=== PATIENT | male | born 1945 | race Caucasian/White ===

== ENCOUNTER → 2020-02-10 13:57 | Outpatient (BNVA) | payer OTHER, SELFPAY | PROVIDERS: Family Provider Internal Medicine; PCP Internal Medicine; Visit Provider Nurse Practitioner | DX: M25.561 Pain in right knee (principal) | CPT/HCPCS: 73562 ==

== ENCOUNTER 2020-04-09 06:44 | Outpatient (CLI) | payer OTHER, SELFPAY ==
--- NOTE | 2020-04-09 07:15 | MR_ITS ---
WS: [id number] MRI LUMBAR SPINE WITH CONTRAST TECHNIQUE: Sagittal T1, T2 and STIR imaging. Axial T1 and T2 imaging. Post gadolinium imaging was obt ained. CLINICAL INFORMATION: LOW BACK PAIN COMPARISON: MRI 1 FINDINGS: Mild lumbar curve. No acute compression. Prior postoperative changes L3-L4 and L4-5 decompressive laminectomies. Slight retrolisthesis L2 on L3 and L3 on L4. L1-L2: Mild disc bulging with mild central canal stenosis. Moderate facet arthropathy. Foramen are pa tent. L2-L3: Retrolisthesis. Mild disc bulging with moderate central canal stenosis. Moderate facet arthrop athy. Foramen are patent. L3-L4: Slight retrolisthesis. Decompressive laminectomies. Narrowing of the subarticular recess bilat erally with small central protrusion. Moderate bilateral foraminal narrowing impinges the exiting L3 nerve roots bilaterally. Moderate facet arthropathy. L4-L5: Decompressive laminectomy. Moderate facet arthropathy. Mild right and no significant left fora fernie narrowing. Narrowing of the right dorsal thecal sac with mild residual central canal stenosis.. L5-S1: Mild disc bulging and osteophytic ridging. Spinal canal is patent. Moderate facet arthropathy. Mild left and no significant right foraminal narrowing. Prior postoperative changes in the cervical spine. MR/MR lumbar spine wo/w con [id number] IMPRESSION: 1. Mild lumbar curve. No acute compression. Prior decompressive laminectomies L3-L4 and L4-L5. 2. Slight retrolisthesis L2 on L3 and L3 on L4. 3. Mild central canal stenosis L1-2 and moderate central canal stenosis L2-3. This is progressed since 2014 4. Decompressive laminectomies L3-L4 and L4-L5 with mild residual central de l stenosis L4-5. 5. Moderate bilateral foraminal narrowing worse at L3-4 with impingement on th e exiting L3 nerve roots bilaterally.
== END 2020-04-09 06:45 | disposition home or self-care (01) ==
LOC: RADSHAW 06:47
PROVIDERS: PCP Emergency Medicine Emergency Medical Services; Visit Provider Family Medicine
DX: M54.5 Low back pain (principal); M96.1 Postlaminectomy syndrome, not elsewhere classified; M48.061 Spinal stenosis, lumbar region without neurogenic claudication
CPT/HCPCS: 72158; A9579

== ENCOUNTER → 2020-04-17 14:40 | Outpatient (BNVA) | payer OTHER, SELFPAY | PROVIDERS: PCP Emergency Medicine Emergency Medical Services; Visit Provider Psychiatry & Neurology Neurology | DX: M54.5 Low back pain (principal); Z87.891 Personal history of nicotine dependence | CPT/HCPCS: 99203 ==

== ENCOUNTER → 2020-06-04 13:55 | Outpatient (BNVA) | payer OTHER, SELFPAY | PROVIDERS: PCP Emergency Medicine Emergency Medical Services; Visit Provider Surgery | DX: Z11.59 Encounter for screening for other viral diseases (principal); R22.32 Localized swelling, mass and lump, left upper limb | CPT/HCPCS: 87635 ==

== ENCOUNTER 2020-06-08 08:04 | Day surgery (SDC) | payer OTHER, SELFPAY ==
[2020-06-05 10:51] VITALS: BMI 34.3
--- NOTE | 2020-06-05 12:28 | ANES.PREANE2 ---
Pre-Anesthetic Assessment Pre-Anesthetic Assessment: Height/Weight: Height 1.73 m Weight 102.512 kg Preop Diagnosis: cyst left hand, screening Proposed Procedure: Operation Date: 06/08/20 09:45 Proposed Procedures p Colonoscopy with poss biopsy poss polypectomy 22790 10892 R22.9 Z12.11(Not Applicable) - Xavier Jose MD s excision of subcutaneous mass left hand(Left) - Xavier Jose MD Was Beta Rylee taken within 24 hours: Yes Last intake: Instructed to take Day of Surgery Social: Social History: No alcohol and No tobacco Exam: Pre-Anes Outpt Exam: alert, oriented x 3, clear to auscultation bilaterally and regular rate & rhythm Airway: Submandibular: WNL Cervical ROM: WNL MP: 2 History/ROS: No significant complaints Pulmonary: Pulmonary: FITZGERALD and None reported CV/HEM: CV/HEM: HTN : : Chronic renal Insufficiency Hepatic: Hepatic: None reported GI: GI: None reported Metabolic: Metabolic: Hyperlipidemia and Morbid obesity Musc/skel: Musc/skel: None reported Neuropsych: Neuropsych: None reported Anesthetic Plan: ASA status: 3 Anesthesia: MAC PFSH Anesthesia PFSH: Medical History Anxiety Atherosclerotic heart disease of [place] coronary artery without angina pectoris CAD (coronary artery disease) COPD (chronic obstructive pulmonary disease) Depression Hyperlipidemia Hypertension Ischemic cardiomyopathy Lumbar radiculopathy Osteoarthritis Peripheral neuropathy Prostatitis PTSD (post-traumatic stress disorder) Spinal stenosis Surgical History History of fusion of cervical spine Hx of arthroscopic knee surgery Hx of circumcision Status post colonoscopy Family History Other CAD (coronary artery disease) Cancer Diabetes Hypertension Stroke Social History Smoking and tobacco status: former smoker Alcohol intake: never Lives independently: Yes Household members: spouse Marital status: Current occupational status: disabled History of recent travel: No Data Anesthesia Cardiac Studies: No Data to Display
[2020-06-08 08:19] VITALS: BP 132/80; PULSE 68; RESP 18; TEMP 36.3; O2SAT 94
[2020-06-08] MEDS: sodium chloride 0.9% 1,000 ML 30 ML IV (08:33)
--- NOTE | 2020-06-08 08:40 | W.PM.OPSUD ---
Surgery/Procedure H&P Update DATE OF PROCEDURE: June 08, 2020 DATE H&P PERFORMED: 05/22/20 H&P UPDATE INFORMATION: I have reviewed H&P completed within last 30 days, I have examined patient prior to procedure and No changes to prior documentation PREOP DIAGNOSIS: cyst left hand, screening PLANNED PROCEDURE: Operation Date: 06/08/20 09:45 Proposed Procedures p Colonoscopy with poss biopsy poss polypectomy 35558 44398 R22.9 Z12.11(Not Applicable) - Xavier Jose MD s excision of subcutaneous mass left hand(Left) - Xavier Jose MD
--- NOTE | 2020-06-08 09:24 | P.ANESUD_ITS ---
Pre-Anesthetic Update Pre-Anesthetic Assessment: Date of Surgery/Procedure: 06/08/20 Preop Michela gnosis: cyst left hand, screening Proposed Procedure: Operation Date: 06/08/20 09:45 Proposed Procedures p Colonoscopy with poss biopsy poss polypectomy 49963 72926 R22.9 Z12.11(Not Applicable) - Xavier Jose MD s excision of subcutaneous mass left hand(Left) - Xavier Jose MD Any changes to Pre-Anesthetic Assessment?: No Last Intake: Intake Last Liquid Date 06/07/20 Last Liquid Time 17:00 Last Solid Date 06/06/20 Last Solid Time 18:00 Vitals: Temperature 97.4 F L 06/08/20 08:19 Temperature Source Temporal Artery S can 06/08/20 08:19 Pulse Rate 68 06/08/20 08:19 Pulse Rhythm 06/08/20 08:19 Pulse Strength 3+ Normal 06/08/20 08:19 Respiratory Rate 18 06/08/20 08:19 Blood Pressure 132/80 06/08/20 08:19 Blood Pressure Elizabeth n 97 06/08/20 08:19 Pulse Oximetry 94 06/08/20 08:19 Oxygen Delivery Me thod 06/08/20 08:19 Exam: Pre-Anes Outpt Exam: alert, oriented x 3, clear to auscultation bilaterally and regular rate & rhythm Other Pertinent Information: Other Pertinent Information: took metoprolol this morning Cardiac Studies: No Data to Display
[2020-06-08] MEDS: lidocaine 1% INJ 20 mL IM (09:55)
[2020-06-08 10:18] VITALS: BP 101/70; PULSE 61; RESP 18; TEMP 36.3; O2SAT 92
[2020-06-08 10:41] VITALS: BP 108/75; PULSE 57; RESP 18; O2SAT 93
--- NOTE | 2020-06-08 11:00 | ANE.PACU2 ---
Inpatient post-anesthesia follow up: Airway intact: Yes Vital signs: Temperature 97.3 F Pulse Rate 57 Respiratory Rate 18 Blood Pressure 108/75 Pulse Oximetry 93 Oxygen Delivery Me thod Room Air Oxygen Flow Rate Fraction of Inspir ed Oxygen Hydration adequate: Yes Nausea and vomiting: No Pain level: 2 Mental status: Baseline
--- NOTE | 2020-06-08 11:24 | PM.OP ---
Operative Report Date of procedure: June 08, 2020 Pre-op Diagnosis: 2 x 2 centimeter cyst dorsal aspect of left hand Pre-op Diagnosis: Screening colonoscopy Post-op Diagnosis: Normal colonoscopy except scattered diverticuli sigmoid colon 2 x 2 centimeter cyst dorsal aspect of left hand Procedure Done: Excision of cyst dorsal aspect of left hand Colonoscopy past splenic flexure without biopsy Repeat colonoscopy in 10 years Pathology: Cyst left hand Surgeon: Xavier Jose Anesthesia: MAC Condition: stable Disposition: PACU Procedure: The patient was taken to the operating room and placed in left lateral position under MAC. The left forearm and hand was prepped and draped in a sterile manner. 60s of 1% lidocaine with 0.5% Marcaine was infiltrated around the palpable cyst on the dorsal aspect of the left hand between the second and third fingers. A 3 cm incision was made using 15 blade and the cyst was dissected free from the surrounding subcutaneous tissue and underlying fascia without any difficulty and sent to pathology. The wound was irrigated saline and subcutaneous tissue was approximated using interrupted 3-0 Vicryl suture and skin was closed using running subcuticular 4-0 Monocryl suture and surgical glue. Pressure dressings were applied DIAZ: Normal The colonoscope was introduced and advanced up to cecum with ileocecal valve and appendicular orifice was visualized. The colon prep was fair. Cecum: Normal Ascending colon: Normal Transverse colon: Normal Descending colon: Normal Sigmoid colon: Scattered diverticuli Rectum: Normal The colonoscope was withdrawn.
== END 2020-06-08 11:00 | disposition home or self-care (01) ==
PROVIDERS: PCP Emergency Medicine Emergency Medical Services; Visit Provider Surgery
PROC: 0DJD8ZZ Inspection of Lower Intestinal Tract, Via Natural or Artificial Opening Endoscopic (ICD-10-PCS; CPT 45378; principal; 2020-06-08 09:45)
PROC: (CPT 11422; 2020-06-08 09:45)
DX: Z12.11 Encounter for screening for malignant neoplasm of colon (principal); L72.0 Epidermal cyst; K57.30 Diverticulosis of large intestine without perforation or abscess without bleeding; I10 Essential (primary) hypertension; E78.5 Hyperlipidemia, unspecified; E66.01 Morbid (severe) obesity due to excess calories; Z68.34 Body mass index [BMI] 34.0-34.9, adult; F41.9 Anxiety disorder, unspecified; I25.10 Atherosclerotic heart disease of native coronary artery without angina pectoris; M19.90 Unspecified osteoarthritis, unspecified site; Z87.891 Personal history of nicotine dependence; Z79.82 Long term (current) use of aspirin
CPT/HCPCS: 11422; 12041; 45378; 12345; 88304; J2704; J3490; J7030

== ENCOUNTER 2020-10-08 13:49 | Outpatient (CLI) | payer OTHER, MEDICARE, SELFPAY ==
--- NOTE | 2020-10-08 14:11 | XR_ITS ---
WS: [id number] Chest 2 views, 10/08/2020 Clinical Data: shortness of breath Comparison: None. Findings: No nodules, masses or effusions are seen. The heart is normal. The pulmonary vascularity is not increased. No pneumonia or pneumothorax is seen. There are patchy peripheral opacities in the ri ght lung which could represent minimal pneumonia or chronic interstitial change. Recommend follow-up chest x-ray in 5-7 days. The aortic arch and descending aorta show tortuosity. The patient has had an anterior cervical disc fusion. XR/XR chest 2V* [id number] Impression: 1. Patchy peripheral opacities in the right lung which could represent chronic interstitial change or an acute pneumonia and recommend chest x-ray in 5-7 days . 2. Atherosclerosis.
== END 2020-10-08 13:50 | disposition home or self-care (01) ==
PROVIDERS: PCP Family Medicine; Visit Provider Internal Medicine Critical Care Medicine
DX: R06.02 Shortness of breath (principal); I70.90 Unspecified atherosclerosis
CPT/HCPCS: 71046

== ENCOUNTER → 2020-10-23 10:08 | Outpatient (BNVA) | payer OTHER, MEDICARE, SELFPAY | PROVIDERS: PCP Family Medicine; Visit Provider Internal Medicine Critical Care Medicine | DX: J43.9 Emphysema, unspecified (principal) | CPT/HCPCS: 87635 ==

== ENCOUNTER 2020-10-28 09:07 | Outpatient (CLI) | payer OTHER, SELFPAY ==
--- NOTE | 2020-10-28 11:15 | PFTS_ITS ---
Date of Study:10/28/20 Date of Dictation: 10/30/2020 MECHANICS: Forced vital capacity (FVC) is normal. Forced expiratory volume in one second (FEV1) is normal FEV1/FVC is normal Postbronchodilator study not performed. FLOW VOLUME LOOP: normal LUNG VOLUMES: Total lung capacity (TLC) is normal. Residual volume (RV) is normal. DIFFUSING CAPACITY FOR CARBON MONOXIDE: jami . INTERPRETATION: The pulmonary function tests are normal. MTDD
== END 2020-10-28 09:08 | disposition home or self-care (01) ==
PROVIDERS: PCP Family Medicine; Visit Provider Internal Medicine Critical Care Medicine
DX: J43.9 Emphysema, unspecified (principal)
CPT/HCPCS: 94010; 94726; 94729

== ENCOUNTER 2020-11-30 06:00 | Outpatient (RCR) | payer OTHER, SELFPAY | END 2020-12-25 23:59 | disposition home or self-care (01) | LOC: SPT 06:00 | PROVIDERS: PCP Family Medicine; Referring Provider Family Medicine; Visit Provider Family Medicine | DX: M54.5 Low back pain (principal) | CPT/HCPCS: 97110; 97161 ==

== ENCOUNTER 2020-12-26 06:00 | Outpatient (RCR) | payer OTHER, SELFPAY | END 2021-01-25 23:59 | disposition home or self-care (01) | LOC: SPT 06:00 | PROVIDERS: PCP Family Medicine; Referring Provider Family Medicine; Visit Provider Family Medicine | DX: M54.5 Low back pain (principal) | CPT/HCPCS: 97110; 97113 ==

== ENCOUNTER 2021-01-18 14:42 | Outpatient (CLI) | payer OTHER, SELFPAY ==
--- NOTE | 2021-01-18 15:00 | USCV_ITS ---
Krishna Hess Age: 75 Gender: M : 1945 Exam Date: 01/18/2021 15:01 Ordering Phys: Alberta Blackwell MD ([email or web address]) Technologist: Milvia Amor [place]am Location[place] [facility] [place] Indication: NICM, AND SOB BP: / HR: 84 Rhythm: Sinus Technical Quality: Adequate MEASUREMENTS (Male / Female) Normal Values 2D ECHO LV Diastolic Diameter PLAX 3.8 cm 4.2 - 5.9 / 3.9 - 5.3 cm LV Systolic Diameter PLAX 3.0 cm LV Chamber Size 3.3 cm IVS Diastolic Thickness 1.7 cm 0.6 - 1.0 / 0.6 - 0.9 cm IVS Systolic Thickness 1.6 cm LVPW Diastolic Thickness 1.3 cm 0.6 - 1.0 / 0.6 - 0.9 cm LVPW Systolic Thickness 1.4 cm RV Chamber Size 3.5 cm LVOT Diameter 2.1 cm LV Ejection Fraction 2D Teich 46.3 % LV Ejection Fraction MOD 2C 51.1 % LV Ejection Fraction 2C AL 56.4 % LA Diameter 5.1 cm LA Width 2.7 cm LA Height 3.9 cm RA Width 2.9 cm RA Height 4.1 cm Aorta at Sinotubular Diameter 2.4 cm M-MODE LV Diastolic Diameter MM 5.7 cm 4.2 - 5.9 / 3.9 - 5.3 cm LV Systolic Diameter MM 2.9 cm LV Ejection Fraction MM Teich 79.4 % IVS Diastolic Thickness MM 1.1 cm 0.6 - 1.0 / 0.6 - 0.9 cm IVS Systolic Thickness MM 1.4 cm LVPW Diastolic Thickness MM 1.3 cm 0.6 - 1.0 / 0.6 - 0.9 cm LVPW Systolic Thickness MM 1.6 cm RV Diastolic Diameter MM 1.3 cm Aortic Annulus Diameter 3.2 cm LA Ao Ratio MM 1.6 MV E Point Septal Separation 0.5 cm DOPPLER AV Peak Velocity 156.0 cm/s LVOT Peak Velocity 122.0 cm/s AV Area Cont Eq vti 3.0 cm squared AV Area Cont Eq pk 2.6 cm squared MV Area PHT 4.0 cm squared Mitral E to A Ratio 1.0 MV E' Velocity 37.0 cm/s Mitral E to MV E' Ratio 9.0 Mitral E to LV E' Lateral Ratio 7.9 Mitral E to LV E' Septal Ratio 10.5 TR Peak Velocity 132.3 cm/s TR Peak Gradient 7.0 mmHg TR Mean Velocity 90.3 cm/s TR Mean Gradient 3.5 mmHg TR Velocity Time Integral 36.5 cm TV Peak E Velocity 71.0 cm/s Right Atrial Pressure 3.0 mmHg Pulmonary Artery Systolic Pressu 10.0 mmHg PV Peak Velocity 98.0 cm/s RV Acceleration Time 0.1 s RV Ejection Time 0.3 s RV AcT/ET 0.4 FINDINGS Left Ventricle Normal left ventricular size and systolic function, EF 62 %. No regional wall motion abnormalities. Right Ventricle The right ventricle is normal in size and function. Right Atrium The right atrium is normal in size. Left Atrium The left atrium is normal in size. Mitral Valve No gross abnormalities noted Aortic Valve Thickened aortic valve. Tricuspid Valve No gross abnormalities noted Pulmonic Valve Pulmonic valve not well visualized. Pericardium Normal pericardium without effusion. Aorta Normal ascending aorta dimension. CONCLUSIONS Normal left ventricular size and systolic function, EF 62 %. No wall motion normalities noted. Minimally thickened aortic valve No significant stenotic or regurgitant lesions. There is no pericardial effusion. There are no intracardiac masses. Comparison with the previous study is difficult because of the difference in the technical quality. Dr Alberta Blackwell MD [facility] (Electronically Signed) Final Date: 25 Jan 2021 08:59 S
== END 2021-01-18 14:43 | disposition home or self-care (01) ==
LOC: US 14:44
PROVIDERS: PCP Family Medicine; Visit Provider Internal Medicine Cardiovascular Disease
DX: R07.89 Other chest pain (principal); I25.5 Ischemic cardiomyopathy
CPT/HCPCS: 93306

== ENCOUNTER 2021-01-22 07:45 | Outpatient (CLI) | payer OTHER, SELFPAY ==
--- NOTE | 2021-01-22 08:00 | CT_ITS ---
WS: [id number] CT CHEST TECHNIQUE: Noncontrast CT of the chest with coronal and sagittal reformatted images. CLINICAL INFORMATION: Shortness of breath COMPARISON: None. DLP: 1041.[address] scans at [facility] use at least one of these dose optimization techniques: automat ed exposure control; mA and/or kV adjustment per patient size (includes targeted exams where dose is matched to clinical indication); or iterative reconstruction. FINDINGS: Centrilobular and paraseptal moderate chronic emphysematous changes. Bronchiectasis in the right midd le lobe and right lower lobe. No acute pulmonary infiltrates. No focal pneumonia or pleural fluid. No ncalcified 4 mm nodule left upper lobe. Calcified granulomas right hilum. Aortic calcification. Coronary calcification. No mediastinal or hil ar lymphadenopathy. No axillary lymphadenopathy. Normal GE junction. Adrenal glands are normal. No ax illary lymphadenopathy. Hypertrophic changes thoracic spine. CT/CT chest wo con [id number] IMPRESSION: 1. Centrilobular and paraseptal moderate chronic emphysematous changes. Bronch iectasis in the right middle lobe and right lower lobe. 2. Noncalcified 4 mm nodule left upper lobe. 3. No acute pulmonary infiltrates. No focal pneumonia or pleural fluid. 4. No mediastinal or hilar lymphadenopathy. 5. Vascular calcification including coronary. 6. No other significant findings.
== END 2021-01-22 07:46 | disposition home or self-care (01) ==
PROVIDERS: PCP Family Medicine; Visit Provider Internal Medicine Critical Care Medicine
DX: R06.02 Shortness of breath (principal); I25.10 Atherosclerotic heart disease of native coronary artery without angina pectoris; R91.1 Solitary pulmonary nodule; J43.2 Centrilobular emphysema
CPT/HCPCS: 71250

== ENCOUNTER 2021-01-26 06:00 | Outpatient (RCR) | payer OTHER, SELFPAY | END 2021-02-24 23:59 | disposition home or self-care (01) | LOC: SPT 06:00 | PROVIDERS: PCP Family Medicine; Referring Provider Family Medicine; Visit Provider Family Medicine | DX: M54.5 Low back pain (principal) | CPT/HCPCS: 97110; 97113 ==

== ENCOUNTER 2021-02-25 06:00 | Outpatient (RCR) | payer OTHER, SELFPAY | END 2021-03-27 23:59 | disposition home or self-care (01) | LOC: SPT 06:00 | PROVIDERS: PCP Family Medicine; Referring Provider Family Medicine; Visit Provider Family Medicine | DX: M54.5 Low back pain (principal) | CPT/HCPCS: 97110 ==

== ENCOUNTER 2021-03-02 14:43 | Emergency (ER) | payer OTHER, SELFPAY ==
[2021-03-02 15:42] VITALS: BP 149/93; PULSE 77; RESP 18; TEMP 36.6; O2SAT 93; BMI 33.0
[2021-03-02 17:22] VITALS: BP 137/93; PULSE 78; RESP 21; TEMP 36.4; O2SAT 94
--- NOTE | 2021-03-02 17:22 | ED_ITS ---
HPI - Fall General: Chief Complaint: Fall Stated Complaint: BAck shasta, fall Time Seen by Provider: 03/02/21 17:20 History of Present Illness: HPI Narrative: 75-year-old male patient reports that he had been working on some fence and turned a misstep causing him to fall onto his left side. Since then patient has had some increased discomfort in the right posterior lower rib area. Patient reports occasional discomfort and pain with inspiration and movement. Patient denies any chest pain, difficulty breathing, or loss of consciousness. Patient is alert and oriented. Patient has a history of diabetes, depression, BPH, hypertension, and COPD. Review of Systems General: Reports: 10 or more systems reviewed and unremarkable except in HPI and below Musc: Reports: other (Right side pain and muscle spasm) PFSH ED PFSH: Medical History (Updated 03/02/21 @ 19:06 by SHARMILA Kinsey) Anxiety Atherosclerotic heart disease of [place] coronary artery without angina pectoris CAD (coronary artery disease) COPD (chronic obstructive pulmonary disease) Depression Hyperlipidemia Hypertension Ischemic cardiomyopathy Lumbar radiculopathy Osteoarthritis Peripheral neuropathy Prostatitis PTSD (post-traumatic stress disorder) Spinal stenosis Surgical History (Updated 01/07/21 @ 14:10 by Saba Conn LPN) H/O excision of mass (06/08/20) Left hand History of fusion of cervical spine Hx of arthroscopic knee surgery Hx of circumcision Status post colonoscopy (06/08/20) Family History Mother CAD (coronary artery disease) Cancer Diabetes Stroke Father Cancer Brother Cancer Chronic kidney disease (CKD) Diabetes Son Diabetes Family/Other Diabetes Other Hypertension Denies family history of Clotting disorder Dementia Suicide Anesthesia complication Bleeding disorder Lung disease Social History Smoking and tobacco status: former smoker Quit status (tobacco): has quit using tobacco Year quit tobacco: 1989 - . PPD x 40 Years Second hand smoke exposure: Yes Smoking risk assessment/counseling performed?: No Alcohol intake: never Counseling given: No Counseling given: No Lives independently: Yes Household members: spouse Marital status: service: Yes Current occupational status: disabled History of recent travel: No Current gender identity: Male Physical Exam Const: COMMON NORMALS: no acute distress and patient oriented x3 GENERAL APPEARANCE: cooperative HENMT: COMMON NORMALS: normocephalic and Normal external nose present HEAD & SCALP: normal to inspection and normocephalic NOSE: Normal external nose present MOUTH: Normal oral and palatal mucosa present THROAT: posterior oropharynx normal Eye: GENERAL EYE: appearance normal, both eyes and all related structures Neck/C-Spine: COMMON NORMALS: full ROM Chest: COMMONS NORMALS: normal inspection of the chest CHEST: Yes localized rib tenderness with anteroposterior compression (right posterior lower rib tenderness) Resp: COMMON NORMALS: normal respiratory effort EFFORT & INSPECTION: Yes able to speak in complete sentences Cardio: COMMON NORMALS: regular rate and regular rhythm RATE: regular rate RHYTHM: regular rhythm GI: COMMON NORMALS: non-tender Back/Pelvis: THORACIC SPINE/UPPER BACK: Yes paraspinal muscle tenderness Thoracic paraspinal muscle tenderness: right LUMBAR SPINE/LOWER BACK: Yes paraspinal muscle tenderness Lumbar paraspinal muscle tenderness: right Extremity: COMMON NORMALS: normal to inspection Neuro: COMMON NORMALS: patient oriented x3 and moves all extremities Psych: COMMON NORMALS: mental status grossly normal and cooperative Skin: COMMON NORMALS: no rashes or lesions noted GENERAL SKIN EXAM: no rashes or lesions noted Course Vital Signs: Vital signs: Vital Signs Temperature 97.5 F L 03/02/21 17:22 Pulse Rate 78 03/02/21 17:22 Respiratory Rate 21 H 03/02/21 17:22 Blood Pressure 137/93 03/02/21 17:22 Pulse Oximetry 94 03/02/21 17:22 MDM - Fall MDM Narrative: Medical decision making narrative: 75-year-old male patient comes in today for injury to the low back. Patient reports he had been working on some fence and turned to head up to the house and he tripped and fell landing on his left side. Since then he has been having some muscle spasms and pain to the right mid to lower back. On exam patient has no significant midline spinal tenderness, he does have some muscle tenderness in the right mid to lower paraspinous muscles. Vital signs are normal. Abdomen soft nontender. Skin is warm and dry. No flailing or crepitus is noted in the ribs. Differential diagnosis includes rib fracture, degenerative disc disease, muscle strain, facet arthropathy. X-ray of the ribs and the lumbar spine I did not see any obvious fractures, however we will await final report by radiology which will be called to patient if different or new abnormality is noted. Patient was given a dose of hydrocodone and acetaminophen, 15 mg of Toradol IM, and 60 mg orphenadrine. Patient did report some mild relief. Patient appears well without any signs of serious injury or illness. Discharge Plan Discharge Patient Disposition: Home Clinical Impression: Spasm of muscle of lower back Fall Qualifiers: Encounter type: initial encounter Qualified Code(s): W19.XXXA - Unspecified fall, initial encounter Condition: Stable Prescriptions: New hydrocodone-acetaminophen 5-325 mg tablet 1 tab PO Q6H PRN (Reason: pain (scale score 7-10)) Qty: 14 RF: 0 tizanidine 4 mg tablet 4 mg PO Q8H PRN (Reason: muscle spasticity) Qty: 14 RF: 0 No Action prazosin 1 mg capsule 1 mg PO BEDTIME RF: 0 bupropion HCl 150 mg tablet extended release 24 hr 150 mg PO DAILY RF: 0 quetiapine 200 mg tablet 100 mg PO DAILY RF: 0 finasteride 5 mg tablet 5 mg PO DAILY RF: 0 metoprolol tartrate 50 mg tablet 25 mg PO BID RF: 0 atorvastatin 20 mg tablet 10 mg PO DAILY RF: 0 pantoprazole 40 mg tablet,delayed release (DR/EC) 40 mg PO DAILY RF: 0 aspirin [Adult Low Dose Aspirin] 81 mg tablet,delayed release (DR/EC) 81 mg PO DAILY RF: 0 multivitamin Tablet 1 tab PO DAILY RF: 0 losartan 25 mg tablet 25 mg PO DAILY RF: 0 albuterol sulfate [ProAir HFA] 90 mcg/actuation HFA aerosol inhaler 2 puff INHALATION Q6H PRN (Reason: Shortness Of Breath Or Wheezing) RF: 0 fluticasone propionate [Flonase Allergy Relief] 50 mcg/actuation spray,suspension 1 spray intranasal BID 30 Days Qty: 16 RF: 3 Stiolto Respimat 2.5-2.5 mcg/actuation mist 2 puff inhalation Q24H 30 Days Qty: 4 RF: 3 Discharge Orders: Discharge ED (Routine); Ordered 03/02/21 Ordered By: Tacos Covington Referrals: Gypsy Salcedo MD [Primary Care Provider] - Discharge Diet: Usual diet Discharge Activity: Increase activity as tolerated Patient Instructions: Muscle Spasm (ED), Opioid Safety Activity Restrictions/Additional Instructions: Activity as tolerated. Gentle stretching and range of motion exercises. Drink plenty of water with medication. Use acetaminophen or ibuprofen to control pain. Use hydrocodone as needed for breakthrough pain. Use tizanidine routinely for control of muscle spasms. Follow-up with primary care in 2 to 3 days for recheck. Return to the ER for new concerns or worsening symptoms. Coding Level of Care Code ED Piped Buttonhole Machine Operator for Rhina Fwd Exam Comprehensive
--- NOTE | 2021-03-02 17:33 | XRR_ITS ---
PROCEDURE INFORMATION: Exam: XR Lumbosacral Spine Exam date and time: 03/02/2021 5:33 PM Age: 75 years old Clinical indication: Injury or trauma; Fall; Blunt trauma (contusions or hematomas) TECHNIQUE: Imaging protocol: XR of the lumbosacral spine. Views: 2 or 3 views. COMPARISON: MR lumbar spine wo/w con [id number] 04/09/2020 7:27 AM FINDINGS: Bones/joints: Trace S shaped curvature of the spine noted. The normal lumbar lordosis is mildly accentuated, with grade 1 retrolisthesis of L3. Unchanged mild anterior wedge compression fracture deformity of L1. Other vertebral body heights are well maintained. No acute fracture seen. There is multilevel degenerative changes, manifested by intervertebral disc space narrowing, endplate osteophytes and facet joint arthrosis. Soft tissues: Unremarkable. XR/XR lumbar spine 2-3V* [id number] IMPRESSION: 1. Degenerative changes of the lumbar spine. 2. No acute injury identified.
--- NOTE | 2021-03-02 17:33 | XRR_ITS ---
PROCEDURE INFORMATION: Exam: XR Right Ribs with PA Chest Exam date and time: 03/02/2021 5:33 PM Age: 75 years old Clinical indication: Injury or trauma; Fall; Rib area; Blunt trauma (contusions or hematomas); Additional info: Fall injury TECHNIQUE: Imaging protocol: XR Right ribs with PA chest. Views: 3 views COMPARISON: CT chest con [id number] 01/22/2021 8:02 AM FINDINGS: Lungs: No consolidation. Linear scarring noted bilaterally, right greater than left. Pleural spaces: Unremarkable. No pleural effusion. No pneumothorax. Heart/Mediastinum: Stable cardiomediastinal silhouette. Bones/joints: No displaced rib fracture identified. Cervical spine fusion hardware noted. Degenerative changes of the spine seen. XR/XR ribs RT mn 3V w CXR1V [id number] IMPRESSION: No displaced rib fracture seen.
[2021-03-02] MEDS: HYDROcodone-acetaminophen 10-325 mg Tablet 1 TAB PO (17:36)
[2021-03-02] MEDS: orphenadrine 30 mg/mL Inj 2 mL 60 MG IM (19:41)
[2021-03-02 19:42] VITALS: BP 142/85; O2SAT 94
[2021-03-02] MEDS: ketorolac 30 mg/mL INJ 15 MG IM (19:42)
== END 2021-03-03 14:25 | disposition home or self-care (01) ==
PROVIDERS: Emergency Provider Nurse Practitioner Family; PCP Family Medicine
DX: M62.830 Muscle spasm of back (principal); W19.XXXA Unspecified fall, initial encounter; Z79.82 Long term (current) use of aspirin; I25.10 Atherosclerotic heart disease of native coronary artery without angina pectoris; J44.9 Chronic obstructive pulmonary disease, unspecified; E78.5 Hyperlipidemia, unspecified; I10 Essential (primary) hypertension; Z87.891 Personal history of nicotine dependence
CPT/HCPCS: 71101; 72100; 96372; 99283; J1885; J2360

== ENCOUNTER 2021-04-28 06:00 | Outpatient (RCR) | payer OTHER, SELFPAY | END 2021-05-27 23:59 | disposition home or self-care (01) | LOC: SPT 06:00 | PROVIDERS: PCP Family Medicine; Referring Provider Family Medicine; Visit Provider Family Medicine | DX: R26.89 Other abnormalities of gait and mobility (principal) | CPT/HCPCS: 97110; 97112; 97161 ==

== ENCOUNTER 2021-05-28 06:00 | Outpatient (RCR) | payer OTHER, SELFPAY | END 2021-06-27 23:59 | disposition home or self-care (01) | LOC: SPT 06:00 | PROVIDERS: PCP Family Medicine; Referring Provider Family Medicine; Visit Provider Family Medicine | DX: R26.89 Other abnormalities of gait and mobility (principal) | CPT/HCPCS: 97110; 97112 ==

== ENCOUNTER 2021-10-08 13:46 | Outpatient (CLI) | payer OTHER, SELFPAY ==
--- NOTE | 2021-10-08 14:09 | CT_ITS ---
WS: [id number] CT ABDOMEN PELVIS TECHNIQUE: Contrast-enhanced CT of the abdomen and pelvis with coronal and sagittal reformatted image s. CLINICAL INFORMATION: LRQ PAIN COMPARISON: None. DLP: 1262.[address] scans at [facility] use at least one of these dose optimization techniques: automated e xposure control; mA and/or kV adjustment per patient size (includes targeted exams where dose is matc hed to clinical indication); or iterative reconstruction. FINDINGS: Mild RIGHT hydronephrosis. Mild inflammatory stranding about the RIGHT kidney. Mild RIGHT ureterectas is with a 3.3 x 4.5 mm obstructing RIGHT mid ureteral calculus. Normal LEFT renal parenchymal enhancement. Tiny LEFT renal parenchymal cyst. Normal LEFT ureter. No h ydronephrosis in the LEFT kidney. Mild diffuse fatty infiltration of the liver. Normal portal vein and splenic vein. Normal gallbladder . Spleen within normal limits.. Normal GE junction. Interstitial thickening with pulmonary fibrosis i n the lung bases. Associated bronchiectasis. Slight pleural thickening in the lung bases. Normal celiac and SMA. Normal caliber abdominal aorta. Aortic calcification. Prominent prostate measu ring 4.2 CM. Correlation PSA. Normal sigmoid colon. Sigmoid diverticulosis. No evidence of acute diverticulitis. Spondylitic changes lumbar spine. Laminectomy defects lower lumbar spine. No periaortic or pelvic lym phadenopathy. No inguinal lymphadenopathy. Tiny fat-containing LEFT inguinal hernia. CT/CT abdomen pelvis w con* [id number] IMPRESSION: 1. Obstructing 3.3 x 4.5 mm RIGHT midureteral calculus with mild RIGHT hydrone phrosis and ureterectasis. Mild inflammatory stranding about the RIGHT kidney. 2. No hydronephrosis in the LEFT kidney. 3. Mild diffuse fatty infiltration of the liver. 4. Spleen measures 12 cm upper pole within normal limits. 5. Sigmoid diverticulosis. No evidence of acute diverticulitis. 6. Enlarged prostate measuring 4.2 CM. Recommend correlation PSA. 7. Fibrosis with bronchiectasis in the lung bases. 8. Moderate to advanced spondylitic changes lumbar spine with laminectomy defe cts lower lumbar spine. Preliminary findings communicated to Gypsy Salcedo MD at 10/08/2021 4:26 PM.
[2021-10-08] MEDS: iohexol 300 mg/mL 50 mL Btl PO (15:52)
[2021-10-08] MEDS: iodixanol 320 mg/mL 100mL Btl IV (16:03)
[2021-10-08 16:27] LABS: Blood Urea Nitrogen 17 mg/dL (8-23)
== END 2021-10-08 13:47 | disposition home or self-care (01) ==
LOC: RAD 13:56
PROVIDERS: PCP Family Medicine; Visit Provider Family Medicine
DX: N20.1 Calculus of ureter (principal); N13.30 Unspecified hydronephrosis; N13.4 Hydroureter; K76.0 Fatty (change of) liver, not elsewhere classified; K57.30 Diverticulosis of large intestine without perforation or abscess without bleeding; N40.0 Benign prostatic hyperplasia without lower urinary tract symptoms; J84.10 Pulmonary fibrosis, unspecified; J47.9 Bronchiectasis, uncomplicated
CPT/HCPCS: 74177; 82565; 84520

== ENCOUNTER 2021-10-18 16:46 | Emergency (ER) | payer OTHER, MEDICARE, SELFPAY ==
[2021-10-18 16:54] VITALS: BP 134/91; PULSE 109; RESP 20; TEMP 36.8; O2SAT 92; BMI 30.1
--- NOTE | 2021-10-18 16:59 | XRR_ITS ---
PROCEDURE INFORMATION: Exam: XR Left Ankle Exam date and time: 10/18/2021 4:59 PM Age: 76 years old Clinical indication: Pain; Ankle; Left; Additional info: Injury TECHNIQUE: Imaging protocol: XR Left ankle. Views: 3 or more views. COMPARISON: No relevant prior studies available. FINDINGS: Bones/joints: There is an oblique comminuted fracture of the distal shaft of the fibula. A transverse avulsion fracture is seen in the inferior aspect of the medial malleolus. Soft tissues: Normal. Other findings: the age of this finding is indeterminate. XR/XR ankle LT min 3V* [id number] IMPRESSION: 1. Acute comminuted oblique fracture distal shaft of the fibula. 2. Transverse fracture of the medial malleolus of unclear known age.
--- NOTE | 2021-10-18 16:59 | ED_ITS ---
HPI - Extremity Problem General: Chief complaint: Extremity Injury, Lower Stated complaint: Wilmer gee injury Time Seen by Provider: 10/18/21 16:59 History of Present Illness: 76-year-old male patient comes in today with injury to the left ankle. Patient reports he was rolling out a bale of hay when he felt a pop and fell to the ground. Patient said he felt severe pain with nausea. Patient reports his pain is subsided but he is unable to bear weight to the extremity. Patient does have a history of neuropathy to lower extremities. Patient is alert and oriented. Patient has a history of COPD, spinal stenosis, CAD, hypertension, and depression. Review of Systems General: Reports: 10 or more systems reviewed and unremarkable except in HPI and below Musc: Reports: extremity pain (left ankle) PFS ED PFSH: Medical History Anxiety Atherosclerotic heart disease of [place] coronary artery without angina pectoris CAD (coronary artery disease) COPD (chronic obstructive pulmonary disease) Depression Hyperlipidemia Hypertension Ischemic cardiomyopathy Lumbar radiculopathy Osteoarthritis Peripheral neuropathy Prostatitis PTSD (post-traumatic stress disorder) Spinal stenosis Surgical History H/O excision of mass (06/08/20) Left hand History of fusion of cervical spine Hx of arthroscopic knee surgery Hx of circumcision Status post colonoscopy (06/08/20) Family History Mother CAD (coronary artery disease) Cancer Diabetes Stroke Father Cancer Brother Cancer Chronic kidney disease (CKD) Diabetes Son Diabetes Family/Other Diabetes Other Hypertension Denies family history of Clotting disorder Dementia Suicide Anesthesia complication Bleeding disorder Lung disease Social History Quit status (tobacco): has quit using tobacco Year quit tobacco: 1989 - . PPD x 40 Years Second hand smoke exposure: Yes Smoking risk assessment/counseling performed?: No Alcohol intake: never Counseling given: No Counseling given: No Lives independently: Yes Household members: spouse Marital status: service: Yes Current occupational status: disabled History of recent travel: No Current gender identity: Male Physical Exam Const: COMMON NORMALS: alert Neck/C-Spine: COMMON NORMALS: full ROM Resp: COMMON NORMALS: normal respiratory effort Cardio: COMMON NORMALS: regular rate and regular rhythm RATE: regular rate RHYTHM: regular rhythm Extremity: NARRATIVE EXTREMITY EXAM: Laxity is noted to the left ankle, lateral swelling is noted, positive pedal pulses, decreased sensation which patient reports is chronic due to neuropathy. Neuro: SENSORIUM/ORIENTATION: Yes alert Psych: COMMON NORMALS: cooperative Skin: COMMON NORMALS: no wounds Course Vital Signs: Vital signs: Vital Signs Temperature 98.3 F 10/18/21 16:54 Pulse Rate 100 10/18/21 17:07 Respiratory Rate 18 10/18/21 17:07 Blood Pressure 128/90 10/18/21 17:07 Pulse Oximetry 94 10/18/21 17:07 MDM - Extremity (Nontraumatic) Medical Decision Making 76-year-old male patient comes in today with injury to the left ankle. Patient report working out in the field and felt a pop and fell to the ground with injury to the ankle. Patient was able to bear weight to the ankle. On exam p atient has pulses to the ankle. Minimal swelling is noted. Patient does have chronic neuropathy to the foot so decreased sensation is noted. Significant laxity is noted to the ankle joint. Differential diagnosis includes but not limited to fracture, sprain, contusion. X-ray confirmed by carlitos possible trimalleolar fracture of the left ankle. Good alignment was noted to the ankle joint. Patient was placed in a posterior medial lateral splint and was maintained on crutches. Reviewed with patient and spouse that they will need to follow-up with orthopedics. manager film was consulted for follow-up appointment. Patient usually goes to [facility] for his care and states he will probably follow-up with them. Patient reported understanding of need for follow-up for further treatment and evaluation. Discharge Plan Discharge Patient Disposition: Home Clinical Impression: Ankle fracture, left Condition: Stable Prescriptions: No Action prazosin 1 mg capsule 1 mg PO BEDTIME 0RF quetiapine 200 mg tablet 100 mg PO DAILY 0RF finasteride 5 mg tablet 5 mg PO DAILY 0RF metoprolol tartrate 50 mg tablet 25 mg PO BID 0RF atorvastatin 20 mg tablet 10 mg PO DAILY 0RF pantoprazole 40 mg tablet,delayed release (DR/EC) 40 mg PO DAILY 0RF aspirin [Adult Low Dose Aspirin] 81 mg tablet,delayed release (DR/EC) 81 mg PO DAILY 0RF multivitamin Tablet 1 tab PO DAILY 0RF losartan 25 mg tablet 25 mg PO DAILY 0RF azelastine 137 mcg (0.1 %) aerosol,spray 1 spray intranasal BID 30 Days Qty: 30 3RF Rx Instructions: administer into each nostril. Please overnight fluticasone propionate [Flonase Allergy Relief] 50 mcg/actuation spray,suspension 1 spray intranasal BID Qty: 16 3RF Rx Instructions: administer into each nostril codeine-guaifenesin 10-200 mg/5 mL liquid 5 ml PO Q6H PRN (Reason: cough) 30 Days Qty: 473 2RF albuterol sulfate [ProAir HFA] 90 mcg/actuation HFA aerosol inhaler 2 puff INHALATION Q6H PRN (Reason: Shortness Of Breath Or Wheezing) 0RF Stiolto Respimat 2.5-2.5 mcg/actuation mist 2 puff inhalation Q24H 30 Days Qty: 4 3RF Discharge Orders: Discharge ED (Routine); Ordered 10/18/21 Ordered By: Tacos Covington Referrals: Gypsy Salcedo MD [Primary Care Provider] - Discharge Diet: Usual diet Discharge Activity: Limit activity as instructed Patient Instructions: Ankle Fracture (ED) Activity Restrictions/Additional Instructions: Avoid weightbearing to the ankle. Use crutches for protection of extremity. Use acetaminophen and ibuprofen as needed for pain. You can use your stronger pain medication as needed for severe pain. Use ice and elevation to help prevent swelling. Case management will contact you regarding follow-up appointment with director of orthopedics for further treatment. Return to ER for new concerns. Coding Level of Care Code ED Game Manager for Rhina Fwd Exam Detailed
[2021-10-18 17:07] VITALS: BP 128/90; PULSE 100; RESP 18; O2SAT 94
--- NOTE | 2021-10-19 09:01 | DCPLANNER ---
Addendum entered by Kell Rodriguez 10/21/21 19:40: Patient had a followup appointment for patient with Dr. Shultz at ortho - patient did attend appointment. Original Note: equipment manager had message to schedule a follow up appointment for patient with ortho. equipment manager called the ortho clinic, spoke with Yoselyn, gave clinic patients information. equipment manager was told that patients information would be printed and reviewed. Clinic will call patient with appointment information. Patient has [facility] insurance, egg caser emailed patients information to November, with [employer] [facility], so that the authorization process could be started.
== END 2021-10-18 18:22 | disposition home or self-care (01) ==
PROVIDERS: Emergency Provider Nurse Practitioner Family; PCP Family Medicine
DX: S82.432A Displaced oblique fracture of shaft of left fibula, initial encounter for closed fracture (principal); S82.52XA Displaced fracture of medial malleolus of left tibia, initial encounter for closed fracture; Z79.82 Long term (current) use of aspirin; I25.10 Atherosclerotic heart disease of native coronary artery without angina pectoris; J44.9 Chronic obstructive pulmonary disease, unspecified; E78.5 Hyperlipidemia, unspecified; I10 Essential (primary) hypertension; Z87.891 Personal history of nicotine dependence; X58.XXXA Exposure to other specified factors, initial encounter
CPT/HCPCS: 29515; 73610; 99282

== ENCOUNTER 2021-10-19 14:15 | Outpatient (CLI) | payer OTHER, MEDICARE, SELFPAY | END 2021-10-19 14:16 | disposition home or self-care (01) | LOC: SPT 14:15 | PROVIDERS: PCP Family Medicine; Visit Provider Orthopaedic Surgery | DX: Z46.89 Encounter for fitting and adjustment of other specified devices (principal); S82.852D Displaced trimalleolar fracture of left lower leg, subsequent encounter for closed fracture with routine healing; X58.XXXD Exposure to other specified factors, subsequent encounter | CPT/HCPCS: 87635; 97760; L4361 ==

== ENCOUNTER 2021-10-25 05:55 | Day surgery (SDC) | payer OTHER, MEDICARE, SELFPAY ==
[2021-10-22 13:43] VITALS: BMI 31.0
[2021-10-25] VITALS (7 sets, daily range): BP systolic 100–125; BP diastolic 59–79; PULSE 72–82; RESP 15–18; TEMP 36.2–37; O2SAT 91–97
--- NOTE | 2021-10-25 | XR_ITS ---
WS: [id number] C-ARM RADIOGRAPHS LEFT ANKLE; 3 IMAGES HISTORY: ORIF FRACTURE OF LT ANKLE COMPARISON: 10/18/2021 Short plate and screw stabilize a fracture in the distal fibula. Fracture in good position and alignm ent. Nonfixated avulsion fracture from the medial malleolus. XR/XR ankle LT 2V [id number] IMPRESSION: Plate and screw fixation distal fibular fracture in good alignment.
--- NOTE | 2021-10-25 | SCC_ITS ---
Procedure done: Open reduction and internal fixation left lateral malleolus 8 seconds of fluoroscopic guidance, for a cumulative dose of 0.14 mGy, was provided to Dr. Shultz by the radiology department. C-arm images of the LEFT ankle were saved for the patient's permanent record. [facility]ITALWal[facility]
[2021-10-25] MEDS: sodium chloride 0.9% 1,000 ML 30 ML IV (06:30)
--- NOTE | 2021-10-25 06:37 | ANES.PREANE2 ---
Pre-Anesthetic Assessment Height/Weight: Height 1.73 m Weight 92.533 kg Temp Pulse Resp BP Pulse Ox 97.3 F L 72 16 125/79 95 10/25/21 06:14 10/25/21 06:14 10/25/21 06:14 10/25/21 06:14 10/25/21 06:14 Preop Diagnosis: Trimalleolar left ankle fracture Operation Date: 10/25/21 07:00 Proposed Procedures p ORIF Ankle trimalleolar 85463/s82.852a(Left) - Krishan Shultz MD Familial anesthetic complications: None Was Beta Rylee taken within 24 hours: N/A Was Clonidine taken within 24 hours: N/A Last intake: Intake Last Liquid Date 10/24/21 Last Liquid Time 21:00 Last Solid Date 10/24/21 Last Solid Time 17:00 Social No alcohol and No tobacco Exam alert, oriented x 3, clear to auscultation bilaterally and regular rate & rhythm Airway Mallampati: Class IV Dentition: partials Pulmonary Chronic Obstructive Pulmonary Disease and Sleep Apnea CV/HEM Coronary Artery Disease and Hypertension (has taken same dose of losartan since before 12/14) Metabolic Hyperlipidemia Neuropsych Transient Ischemic Attack Anesthetic Plan ASA status: 3 Anesthesia: General and Regional (specify below) Risk of > 500 ml blood loss (7ml/kg in children): No Medications/Allergies Home Medications Medication Instructions Recorded Confirmed Last Taken Type aspirin 81 mg tablet,delayed 81 mg PO DAILY 11/12/19 10/22/21 03/02/21 History release (Adult Low Dose Aspirin) atorvastatin 20 mg tablet 10 mg PO DAILY tab 11/12/19 10/22/21 03/02/21 History finasteride 5 mg tablet 5 mg PO DAILY 11/12/19 10/22/21 03/02/21 History metoprolol tartrate 50 mg tablet 25 mg PO BID tab 11/12/19 10/22/21 03/02/21 History pantoprazole 40 mg tablet,delayed 40 mg PO DAILY 11/12/19 10/22/21 03/02/21 History release prazosin 1 mg capsule 1 mg PO BEDTIME cap 11/12/19 10/22/21 03/01/21 History quetiapine 200 mg tablet 100 mg PO DAILY tab 11/12/19 10/22/21 03/02/21 History albuterol sulfate 90 mcg/actuation 2 puff INHALATION Q6H PRN 05/22/20 10/22/21 06/07/20 History aerosol inhaler (ProAir HFA) tiotropium 2.5 mcg-olodaterol 2.5 2 puff INHALATION Q24H 30 Days #4 g 10/08/20 10/22/21 Unknown Rx mcg/actuation mist for inhalation (Stiolto Respimat) losartan 25 mg tablet 25 mg PO DAILY 12/09/20 10/22/21 03/02/21 History azelastine 137 mcg (0.1 %) nasal 1 spray INTRANASAL BID 30 Days #30 05/06/21 10/22/21 Unknown Rx spray aerosol ml codeine 10 mg-guaifenesin 200 mg/5 5 ml PO Q6H PRN 30 Days #473 ml 08/26/21 10/22/21 Unknown Rx mL oral liquid CAM WALKER #1 ea 10/19/21 10/19/21 Unknown Rx hydrocodone 7.5 mg-acetaminophen 1 tab PO Q4H PRN 7 Days #30 tab 10/19/21 10/22/21 Unknown Rx 325 mg tablet Allergies Allergy/AdvReac Type Severity Reaction Status Date / Time cyclobenzaprine Allergy Unknown unknown Verified 10/19/21 11:10 [From Flexeril] lisinopril Allergy Unknown unknown Verified 10/19/21 11:10 [facility] Anesthesia Medical History Anxiety Atherosclerotic heart disease of [place] coronary artery without angina pectoris CAD (coronary artery disease) COPD (chronic obstructive pulmonary disease) Depression Hyperlipidemia Hypertension Ischemic cardiomyopathy Lumbar radiculopathy Osteoarthritis Peripheral neuropathy Prostatitis PTSD (post-traumatic stress disorder) Spinal stenosis Surgical History H/O excision of mass (06/08/20) Left hand History of fusion of cervical spine Hx of arthroscopic knee surgery Hx of circumcision Status post colonoscopy (06/08/20) Family History Mother CAD (coronary artery disease) Cancer Diabetes Stroke Father Cancer Brother Cancer Chronic kidney disease (CKD) Diabetes Son Diabetes Family/Other Diabetes Other Hypertension Denies family history of Clotting disorder Dementia Suicide Anesthesia complication Bleeding disorder Lung disease Social History Smoking and tobacco status: former smoker Quit status (tobacco): has quit using tobacco Year quit tobacco: 1989 - . PPD x 40 Years Second hand smoke exposure: Yes Smoking risk assessment/counseling performed?: No Alcohol intake: never Counseling given: No Counseling given: No Lives independently: Yes Household members: spouse Marital status: service: Yes Current occupational status: disabled History of recent travel: No Current gender identity: Male Data Anesthesia Cardiac Studies: Echocardiogram Ultrasound 01/18/21
--- NOTE | 2021-10-25 06:54 | ANES.PROC ---
Anesthesia Procedures Procedure/Date: 10/25/21 Nerve Block ^: Nerve Block 1: Main Anesthesia: general anesthesia Time Out Performed: Yes Consent: requested by attending/covering physician, from patient, risks and benefits reviewed and patient agrees to proceed Nerve block location: popliteal (L) Anesthesia monitors applied: pulse oximetry, EKG, BP cuff and oxygen Nerve block position: supine Anesthetic Used: ropivicaine 0.5% (30 ml) and with decadron (4 mg) Ultrasound used to: recognize landmarks Nerve Stimulator Used?: No Interscalene/Femoral BLK: 4 stimuplex 21 g needle used for position and inplane approach, visualize local anesthetic spread and no vascular puncture identified Injection: neg aspiration of heme and paresthesia +/- Patient Tolerated Procedure: well and no complications Complications: none Additional Comments: During performance of block patient stated he has neuropathy in that foot and it always feels like he has pins and needles sensations in it
--- NOTE | 2021-10-25 07:06 | W.PM.OPSUD ---
Surgery/Procedure H&P Update DATE OF PROCEDURE: October 25, 2021 DATE H&P PERFORMED: 10/19/21 H&P UPDATE INFORMATION: I have reviewed H&P completed within last 30 days PREOP DIAGNOSIS: Trimalleolar left ankle fracture PLANNED PROCEDURE: Operation Date: 10/25/21 07:00 Proposed Procedures p ORIF Ankle trimalleolar 42958/s82.852a(Left) - Krishan Shultz MD
--- NOTE | 2021-10-25 08:00 | PM.OP ---
Operative Report Date of procedure: October 25, 2021 Pre-op diagnosis: Preop Diagnosis Trimalleolar left ankle fracture Post-op diagnosis: same Post-op diagnosis: Same Procedure done: Open reduction and internal fixation left lateral malleolus Implants: Sharri 6-hole semitubular plate Pathology: none sent Surgeon: Krishan Shultz Estimated blood loss (mL): 5 Tourniquet time (min): 26 Findings: The patient had a lateral malleolar fracture and a small and small extra-articular posterior malleolar fracture medial malleolar avulsion. He had a small area of a slightly dusky skin over his anterior foot presumably due to compression from the boot. The overlying skin was still intact and specific treatment of that pressure ulcer was not thought to be warranted Condition: stable Disposition: PACU Procedure: Mr. Hess was taken Mr. Hess was taken to the operating room and given 2 g of Ancef. He was prepped and draped in the supine position with a bump under his left hip and tourniquet on his left thigh. A timeout was performed. A 6 cm long incision was made from the tip of the posterior malleolus up proximally. Dissection was carried down full-thickness to the fibula. Utilizing a lobster claw clamp the distal fibula was brought anteriorly and out to length. It was fixed provisionally with the anterior to posterior 3.5 millimeter screw. A 6 hole semitubular plate was then applied to the posterior malleolus without bending to act in a neutralization fashion. The 3 proximal screws were fixed securing the plate to the proximal fibular shaft and allowing the bend in the plate to apply a anterior reducing force to the distal fragment. 2 additional screws were placed proximally in a posterior to anterior direction. Intraoperative stress images were obtained applying the lateral and posterior force and the talus was identified to be stable within the mortise. The wound was irrigated with saline. Deep tissues were closed with 0 Vicryl, subcutaneous tissues with 2-0 Vicryl, the skin with skin rex. Xeroflo gauze 4 x 4's, compressive cast padding and anterior ABD pad were applied. The patient was placed in his postop boot.
--- NOTE | 2021-10-25 14:35 | ANE.PACU2 ---
Inpatient post-anesthesia follow up: Airway intact: Yes Vital signs: Temperature 98 F Pulse Rate 81 Respiratory Rate 16 Blood Pressure 104/62 Pulse Oximetry 94 Oxygen Delivery Me thod Room Air Oxygen Flow Rate 6 Fraction of Inspir ed Oxygen Hydration adequate: Yes Nausea and vomiting: No Pain level: 1 Mental status: Baseline
== END 2021-10-25 08:55 | disposition home or self-care (01) ==
PROVIDERS: PCP Family Medicine; Visit Provider Orthopaedic Surgery
PROC: (CPT 27822; principal; 2021-10-25 07:00)
DX: S82.852A Displaced trimalleolar fracture of left lower leg, initial encounter for closed fracture (principal); X58.XXXA Exposure to other specified factors, initial encounter; J44.9 Chronic obstructive pulmonary disease, unspecified; G47.30 Sleep apnea, unspecified; I25.10 Atherosclerotic heart disease of native coronary artery without angina pectoris; I10 Essential (primary) hypertension; E78.5 Hyperlipidemia, unspecified; Z86.73 Personal history of transient ischemic attack (TIA), and cerebral infarction without residual deficits; Z79.82 Long term (current) use of aspirin; F41.9 Anxiety disorder, unspecified; F32.9 Major depressive disorder, single episode, unspecified; M19.90 Unspecified osteoarthritis, unspecified site; Z87.891 Personal history of nicotine dependence
CPT/HCPCS: 27822; 64450; 73600; 76000; 76942; C1713; J0690; J1100; J1580; J2405; J2704; J2795; J3010; J3490; J7030

== ENCOUNTER → 2021-11-02 11:30 | Outpatient (BNVA) | payer OTHER, MEDICARE, SELFPAY | PROVIDERS: PCP Family Medicine; Visit Provider Orthopaedic Surgery | DX: R05.3 Chronic cough (principal); J43.9 Emphysema, unspecified; J30.9 Allergic rhinitis, unspecified; I25.5 Ischemic cardiomyopathy; R91.1 Solitary pulmonary nodule; J84.10 Pulmonary fibrosis, unspecified; Z87.891 Personal history of nicotine dependence | CPT/HCPCS: 73610; 99214 ==

== ENCOUNTER 2021-11-14 15:01 | Emergency (ER) | payer OTHER, MEDICARE, SELFPAY ==
--- NOTE | 2021-11-14 15:11 | USCV_ITS ---
Krishna Hess Age: 76 Gender: M : 1945 Exam Date: 11/14/2021 15:30 Ordering Phys: Nesha Perez Technologist: Milvia Amor Exam Location: [facility] Indication: FX LT ANKLE 4 WEEKS AGO WITH ORIF 3 WEEKS AGO. LARGE BLISTER ON ANT SURFACE OF FOOT FROM BRACE. HISTORY: Lt leg pain post fx Lt ankle 4 weeks ago PROCEDURES: Venous duplex imaging was performed in only the left lower extremity. The following venous structures were evaluated: common femoral vein, profunda vein, proximal portion of the greater saphenous vein, superficial femoral vein, and the popliteal vein. In addition, the posterior tibial and peroneal trunk were evaluated. Serial compression, augmentation maneuvers, and spectral Doppler flow evaluation were performed. FINDINGS: Normal 2-D Doppler and augmentation and compressibility throughout the lower extremity venous structures. Additional imaging through the proximal calf veins also reveals no thrombus. Limited evaluation of the greater saphenous vein is patent with no thrombus.. The veins were found to be easily compressible with spontaneous blood flow. Non pulsatile flow pattern. CONCLUSIONS No evidence of DVT in the above-mentioned identifiable veins. Dr Alberta Blackwell MD [facility] (Electronically Signed) Final Date: 14 November 2021 17:11 S
[2021-11-14 15:18] VITALS: BP 162/85; PULSE 75; RESP 16; TEMP 36.6; O2SAT 94; BMI 31.0
--- NOTE | 2021-11-14 15:37 | ED_ITS ---
HPI - Extremity Problem General: Chief complaint: Extremity Injury, Lower Stated complaint: Left leg pain, States he may have blood clot Time Seen by Provider: 11/14/21 15:11 Source: patient and family Mode of arrival: wheelchair Limitations: no limitations History of Present Illness: Patient is a nice 76-year-old male who presents to ED today with a complaint of left ankle swelling and lower leg pain over the past few days. Patient is status post trimalleolar ankle repair by Dr. Shultz approximately 3 weeks ago. Patient has not noticed any redness or warmth to the joint or leg. He has noticed a small abrasion to the dorsum of his foot that he states is from his CAM boot rubbing against it. MD Complaint: extremity pain, extremity swelling, joint swelling and joint pain Onset (ago): day(s) Pain Consistency: constant Location: left and lower extremity Radiation: none Associated symptoms: Reports no associated symptoms; Deny chest pain, fever(s) or rash Context: recent surgery/procedure Review of Systems Const: Denies: fever(s), chills, body aches, fatigue or malaise Card: Denies: chest pain Resp: Denies: dyspnea GI: Denies: nausea or vomiting Musc: Reports: extremity pain, extremity swelling, joint pain and joint swelling; Denies: neck pain, back pain, joint redness or joint warmth Skin/Breast: Denies: rash Neuro: Denies: numbness in extremities or sensory changes [facility] ED PFSH: Medical History Anxiety Atherosclerotic heart disease of [place] coronary artery without angina pectoris CAD (coronary artery disease) COPD (chronic obstructive pulmonary disease) Depression Hyperlipidemia Hypertension Ischemic cardiomyopathy Lumbar radiculopathy Osteoarthritis Peripheral neuropathy Prostatitis PTSD (post-traumatic stress disorder) Spinal stenosis Surgical History H/O excision of mass (06/08/20) Left hand History of fusion of cervical spine Hx of arthroscopic knee surgery Hx of circumcision Status post colonoscopy (06/08/20) Family History Mother CAD (coronary artery disease) Cancer Diabetes Stroke Father Cancer Brother Cancer Chronic kidney disease (CKD) Diabetes Son Diabetes Family/Other Diabetes Other Hypertension Denies family history of Clotting disorder Dementia Suicide Anesthesia complication Bleeding disorder Lung disease Social History Smoking and tobacco status: former smoker Quit status (tobacco): has quit using tobacco Year quit tobacco: 1989 - .5 PPD x 40 Years Second hand smoke exposure: Yes Smoking risk assessment/counseling performed?: No Alcohol intake: never Counseling given: No Counseling given: No Lives independently: Yes Household members: spouse Marital status: service: Yes Current occupational status: disabled History of recent travel: No Current gender identity: Male Physical Exam Const: COMMON NORMALS: no acute distress, patient oriented x3, no limitations, healthy appearing, alert and well nourished Resp: COMMON NORMALS: normal respiratory effort and clear to auscultation bilaterally AUSCULTATION: clear to auscultation bilaterally Cardio: COMMON NORMALS: regular rate and regular rhythm RATE: regular rate RHYTHM: regular rhythm Extremity: COMMON NORMALS: capillary refill normal GENERAL: Yes normal exam except as noted LEFT LOWER EXTREMITY: Yes lower leg, Yes ankle joint and Yes foot & digits OTHER: Patient has edema to lower left leg, ankle, and foot. There is no redness/warmth present. No lymphangitic streaking. He has small superficial abrasion to dorsum of foot without infection. Patient's surgical incision to lateral ankle appears to be healing well without redness or drainage. He complains of some mild calf p ain but calf is supple. No palpable cords noted. DP/PT pulses normal with brisk cap refill. Sensory preserved. Neuro: COMMON NORMALS: patient oriented x3, moves all extremities, no focal motor deficits and no sensory deficits noted SENSORIUM/ORIENTATION: Yes alert Course Vital Signs: Vital signs: Vital Signs Temperature 97.9 F 11/14/21 15:18 Pulse Rate 73 11/14/21 15:50 Respiratory Rate 16 11/14/21 15:50 Blood Pressure 148/92 11/14/21 15:50 Pulse Oximetry 99 11/14/21 15:50 MDM - Extremity (Nontraumatic) Medical Decision Making US of L LE venous reveals no DVT. I have no concerns for infection based on his physical examination. We will apply a bulky padding dressing to avoid further abrasion from his CAM boot/walker. Recommend he follow-up with orthopedics this week for re-examination. Return to ED precautions verbally given to patient and his Discharge Plan Discharge Patient Disposition: Home Clinical Impression: Swelling of left lower extremity Condition: Stable Prescriptions: No Action prazosin 1 mg capsule 1 mg PO BEDTIME 0RF quetiapine 200 mg tablet 100 mg PO DAILY 0RF finasteride 5 mg tablet 5 mg PO DAILY 0RF metoprolol tartrate 50 mg tablet 25 mg PO BID 0RF atorvastatin 20 mg tablet 10 mg PO DAILY 0RF pantoprazole 40 mg tablet,delayed release (DR/EC) 40 mg PO DAILY 0RF aspirin [Adult Low Dose Aspirin] 81 mg tablet,delayed release (DR/EC) 81 mg PO DAILY 0RF losartan 25 mg tablet 25 mg PO DAILY 0RF azelastine 137 mcg (0.1 %) aerosol,spray 1 spray intranasal BID 30 Days Qty: 30 3RF Rx Instructions: administer into each nostril. Please overnight codeine-guaifenesin 10-200 mg/5 mL liquid 5 ml PO Q6H PRN (Reason: cough) 30 Days Qty: 473 2RF (DME) VI MARQUEZ See Rx Instructions .ROUTE .MEDSUPPLY Qty: 1 0RF Rx Instructions: As directed hydrocodone-acetaminophen 7.5-325 mg tablet 1 tab PO Q4H PRN (Reason: pain) 7 Days Qty: 30 0RF albuterol sulfate [ProAir HFA] 90 mcg/actuation HFA aerosol inhaler 2 puff INHALATION Q6H PRN (Reason: Shortness Of Breath Or Wheezing) 0RF Stiolto Respimat 2.5-2.5 mcg/actuation mist 2 puff inhalation Q24H 30 Days Qty: 4 3RF Discharge Orders: Discharge ED (Routine); Ordered 11/14/21 Ordered By: Nesha Perez Referrals: Gypsy Salcedo MD [Primary Care Provider] - Coding Level of Care Code ED Sign Erector for Chg Fwd Exam Problem Focused
[2021-11-14 15:50] VITALS: BP 148/92; PULSE 73; RESP 16; O2SAT 99
[2021-11-14 16:35] VITALS: BP 146/90; PULSE 60; RESP 16; O2SAT 97
--- NOTE | 2021-11-14 16:37 | PC.NURSE ---
1600- Per physician request dorsal wound measuring approx 1 cm in diameter cleanse with sterile saline, telfa applied with guaze and kerlix bulky cover. Patient own CAM boot reapplied and patient states it feels much better.
== END 2021-11-14 16:39 | disposition home or self-care (01) ==
PROVIDERS: Emergency Provider Physician Assistant
DX: M79.89 Other specified soft tissue disorders (principal); Z79.82 Long term (current) use of aspirin; I25.10 Atherosclerotic heart disease of native coronary artery without angina pectoris; J44.9 Chronic obstructive pulmonary disease, unspecified; E78.5 Hyperlipidemia, unspecified; I10 Essential (primary) hypertension; Z87.891 Personal history of nicotine dependence
CPT/HCPCS: 93971; 99282

== ENCOUNTER 2021-11-22 12:01 | Outpatient (CLI) | payer OTHER, MEDICARE, SELFPAY ==
--- NOTE | 2021-11-22 12:30 | CT_ITS ---
WS: [id number] CT CHEST CT-HIGH RESOLUTION, NONCONTRAST. HISTORY: Interstitial lung disease. Pulmonary fibrosis. Technique: High-resolution chest CT is performed in inspiration, expiration, supine and prone positi oning. All CT scans at [facility] use at least one of these dose optimization techniques: automated exposure control; mA and/or kV adjustment per patient size (includes targeted exams where dose is mat ched to clinical indication); or iterative reconstruction. DLP: 2002.23 mGy.cm COMPARISON: 01/22/2021 Findings: Lung volumes are significantly reduced. Bilateral upper lower lobe areas of interstitial th ickening and reticulation, greatest in the lower lung kessler bilaterally. There is mild early honeyco mbing at the RIGHT lung base. Mild pleural thickening. Honeycombing extends along the medial RIGHT lo wer lung field and along the superior major fissure. Again noted is a 4 mm noncalcified nodule in the LEFT upper lobe. No dense areas of consolidation. Ve ry mild central bronchiectasis beginning in the RIGHT lower lung and LEFT lower lobes. No areas of at electasis. With the patient in prone positioning no change in the areas of atelectasis or reticular t hickening and honeycombing. No air trapping identified of any significance. Mild enlargement of the heart. Small mediastinal and hilar lymph nodes. CT/CT chest wo con [id number] Impression: 1. Early changes of IUP. Mild honeycombing most significant in the RIGHT lower lobe. 2. No pneumonia. 3. Minimal if any early changes of bronchiectasis in the lower lobes bilateral ly. 4. Stable 4 mm noncalcified nodule RIGHT upper lobe.
== END 2021-11-22 12:02 | disposition home or self-care (01) ==
LOC: RAD 12:03
PROVIDERS: Visit Provider Internal Medicine Critical Care Medicine
DX: J84.10 Pulmonary fibrosis, unspecified (principal); R91.1 Solitary pulmonary nodule
CPT/HCPCS: 71250

== ENCOUNTER → 2021-11-30 10:21 | Outpatient (BNVA) | payer OTHER, MEDICARE, SELFPAY | PROVIDERS: Visit Provider Orthopaedic Surgery | DX: Z98.890 Other specified postprocedural states (principal); S82.892D Other fracture of left lower leg, subsequent encounter for closed fracture with routine healing; X58.XXXD Exposure to other specified factors, subsequent encounter | CPT/HCPCS: 73610; 99024 ==

== ENCOUNTER 2021-12-28 11:07 | Outpatient (CLI) | payer OTHER, SELFPAY ==
--- NOTE | 2021-12-28 12:30 | USCV_ITS ---
Krishna Hess Age: 76 Gender: M : 1945 Exam Date: 12/28/2021 11:39 Ordering Phys: Krishan Shultz MD Technologist: RICCI [place]am Location: [facility] [place] Indication: OTHER FRACTURE OF LEFT LOWER LEG HISTORY: Lower extremity swelling. PROCEDURES: Venous duplex imaging was performed in only the left lower extremity. The following venous structures were evaluated: common femoral vein, profunda vein, proximal portion of the greater saphenous vein, superficial femoral vein, and the popliteal vein. In addition, the posterior tibial and peroneal trunk were evaluated. FINDINGS: Scanned pt directed area there appears to be a thrombus in the left calf. This appears to be chronic. All other veins appear to be free of thrombus at this time. CONCLUSIONS Chronic thrombus left calf posterior tibial Remaining LLE veins are patent. Prelim to Dr. Shultz at time of exam by supervisor braiding. Patient to followup with Primary care provider Juan Pablo Schwartz MD (Electronically Signed) Final Date: 28 Dec 2021 14:06 S
== END 2021-12-28 11:08 | disposition home or self-care (01) ==
LOC: RAD 11:08
PROVIDERS: Visit Provider Orthopaedic Surgery
DX: S82.892A Other fracture of left lower leg, initial encounter for closed fracture (principal); X58.XXXA Exposure to other specified factors, initial encounter; I82.542 Chronic embolism and thrombosis of left tibial vein
CPT/HCPCS: 73610; 93971

== ENCOUNTER 2021-12-31 10:07 | Outpatient (CLI) | payer OTHER, SELFPAY ==
--- NOTE | 2021-12-31 10:19 | USCV_ITS ---
Krishna Hess Age: 76 Gender: M : 1945 Exam Date: 12/31/2021 11:05 Ordering Phys: Gypsy Salcedo MD Technologist: Milvia Amor [place] [facility] [place]ication: PAIN IN FEET Risk Factors: Unknown Previous Vascular Surgery: RT ANKLE FRACTURED WITH ORIF RIGHT LEFT BP: 108.0 / 67.00 BP: 118.0/ 72.00 0 0 Waveform Velocity (cm/s) Velocity (cm/s) Waveform Biphasic 64.5 Iliac Prox 73.1 Biphasic Biphasic 59.6 Iliac Mid 55.4 Biphasic Biphasic 52.3 Iliac Distal 56.8 Triphasic Biphasic 57.7 SUPERVISOR MIRROR FABRICATION 70.7 Triphasic Biphasic 63.4 SFA Prox 52.5 Triphasic Biphasic 58.1 SFA Mid 54.7 Triphasic Biphasic 71.8 SFA Dist 47.6 Biphasic Biphasic 48.9 POP 39.0 Biphasic Biphasic 51.7 VITICULTURE TEACHER 54.7 Monophasic Biphasic 46.0 DPA 35.0 Monophasic KAROLYN 0.9 FINDINGS RT VITICULTURE TEACHER NO COMPRESSION RT DPA 80-KAROLYN 0.68 LT VITICULTURE TEACHER 110-KAROLYN of 0.93 LT DPA 80 - KAROLYN of 0.68 Mild to moderate plaque in the right iliac artery Minimal plaques in the left iliac artery Monophasic waveforms in the left infrapopliteal vessels Supranormal resting KAROLYN on the right side CONCLUSIONS 1. Noncompressible posterior tibial artery on the right side, suggesting no significant arterial obstruction up to the popliteal artery. 2. An KAROLYN of 0.68 with respect to the dorsalis pedis artery on both sides, may suggest moderate obstructive lesion in the distribution of this vessel 3. KAROLYN of 0.93 on the left side, suggestive of mild peripheral artery disease Dr Alberta Blackwell MD [facility] (Electronically Signed) Final Date: 01 Jan 2022 10:11 S
== END 2021-12-31 10:08 | disposition home or self-care (01) ==
LOC: RAD 10:08
PROVIDERS: PCP Family Medicine; Visit Provider Family Medicine
DX: M79.672 Pain in left foot (principal); M79.671 Pain in right foot
CPT/HCPCS: 93925

== ENCOUNTER 2022-01-26 09:39 | Outpatient (CLI) | payer OTHER, SELFPAY ==
--- NOTE | 2022-01-26 10:42 | PFTS_ITS ---
Date of Study:01/26/22 Date of Dictation: 01/28/2022 MECHANICS: Prebronchodilator forced vital capacity (FVC) is normal. Prebronchodilator forced expiratory volume in one second (FEV1) is normal. FEV1/FVC is normal. There is no postbronchodilator study FLOW VOLUME LOOP: Normal . LUNG VOLUMES: Total lung capacity (TLC) is low normal. Residual volume (RV) is mildly reduced. DIFFUSING CAPACITY FOR CARBON MONOXIDE: Mildly reduced . INTERPRETATION: The spirometry is normal. Postbronchodilator study not performed. Flow volume loop consistent is normal. Lung volumes suggestive of mild restriction. There is mild gas transfer defect. Clinical correlation recommended. MTDD
== END 2022-01-26 09:40 | disposition home or self-care (01) ==
LOC: RT 09:40
PROVIDERS: PCP Family Medicine; Visit Provider Internal Medicine Critical Care Medicine
DX: J84.10 Pulmonary fibrosis, unspecified (principal); F17.210 Nicotine dependence, cigarettes, uncomplicated
CPT/HCPCS: 94010; 94726; 94729

== ENCOUNTER → 2022-03-04 09:20 | Outpatient (BNVA) | payer OTHER, SELFPAY | PROVIDERS: PCP Family Medicine; Visit Provider Internal Medicine Critical Care Medicine | DX: R05.9 Cough, unspecified (principal); J30.9 Allergic rhinitis, unspecified; I25.5 Ischemic cardiomyopathy; R91.1 Solitary pulmonary nodule; J43.9 Emphysema, unspecified; J84.10 Pulmonary fibrosis, unspecified; J84.112 Idiopathic pulmonary fibrosis; Z87.891 Personal history of nicotine dependence | CPT/HCPCS: 36415; 82085; 82550; 84182; 85651; 86038; 86140; 86200; 86235; 86431; 99214 ==

== ENCOUNTER 2022-04-04 09:35 | Outpatient (CLI) | payer OTHER, SELFPAY ==
[2022-04-04 10:54] LABS: Alanine Aminotransferase 15 U/L (0-41); Albumin Level 3.9 g/dL (3.5-5.2); Alkaline Phosphatase 108 IU/L (40-130); Aspartate Amino Transferase 23 U/L (0-40); Globulin 3.4 g/dL (1.3-4.6); Total Bilirubin 0.4 mg/dL (0.15-1.2); Total Protein 7.3 g/dL (6.6-8.7)
== END 2022-04-04 09:36 | disposition home or self-care (01) ==
LOC: LAB 09:36
PROVIDERS: PCP Family Medicine; Visit Provider Internal Medicine Critical Care Medicine
DX: E78.2 Mixed hyperlipidemia (principal); I25.10 Atherosclerotic heart disease of native coronary artery without angina pectoris; J43.9 Emphysema, unspecified; J84.10 Pulmonary fibrosis, unspecified; Z79.899 Other long term (current) drug therapy
CPT/HCPCS: 36415; 80076

== ENCOUNTER 2022-04-19 13:33 | Outpatient (CLI) | payer OTHER, SELFPAY ==
--- NOTE | 2022-04-19 14:15 | USCV_ITS ---
Krishna Hess Age: 76 Gender: M : 1945 Exam Date: 04/19/2022 14:05 Ordering Phys: Gypsy Salcedo MD Technologist: Zuly Narayan [place] [facility] [place]: LLE pain, follow up of chronic distal left DVT HISTORY: chronic DVT left. continued pain left calf to ankle PROCEDURES: On the left side, the common femoral, superficial femoral, profunda femoral, popliteal, posterior tibial, greater saphenous veins, and the peroneal trunk were identified and interrogated in the standard fashion. FINDINGS: No DVT found. There is a thrombosed left GSV at ankle level with no flow seen and will not compress. GSV mid calf, below knee and [place] all appear to compress normally. Dr Gypsy Salcedo at [facility] was contacted with preliminary findings. CONCLUSIONS Thrombosed Left GSV at the level of the ankle. No evidence of left lower extremity DVT. Dr Gypsy Salcedo at [facility] was contacted with preliminary findings of low left GSV occlusive thrombus. NO DVT Juan Pablo Schwartz MD (Electronically Signed) Final Date: 19 April 2022 16:28 S
== END 2022-04-19 13:34 | disposition home or self-care (01) ==
LOC: RAD 13:34
PROVIDERS: PCP Family Medicine; Visit Provider Family Medicine
DX: M79.662 Pain in left lower leg (principal); I82.890 Acute embolism and thrombosis of other specified veins
CPT/HCPCS: 93971

== ENCOUNTER 2022-04-22 10:25 | Outpatient (CLI) | payer OTHER, SELFPAY ==
--- NOTE | 2022-04-22 10:40 | US_ITS ---
WS: [id number] Complete ABDOMINAL ULTRASOUND HISTORY: FOLLOW UP FOR CT COMPARISON: CT 10/08/2021. Liver: 18.2 cm in length. Enlarged heterogeneous liver. The entire liver is poorly visualized due to attenuation and body habitus. No mass identified. Coarse echotexture. No bile duct dilatation. Portal Vein: Normal hepatopetal flow with monophasic waveform. Gallbladder: Normally distended with no gallstones, wall thickening or pericholecystic fluid. Gallbladder wall thickness: 0.3 cm. Pancreas: Not visualized. CBD: 0.5 cm. Right kidney: 10.8 cm x 6.7 cm x 6.2 cm. No mass, cortical thickening or hydronephrosis. Left kidney: 10.9 cm x 7.0 cm x 6.0 cm. No mass, cortical thickening or hydronephrosis. Spleen: Spleen is top normal size at 13.1 cm in length. Similar to the prior no mass within the splee n. Abdominal aorta and IVC are poorly visualized. No ascites. US/US abdomen complete* [id number] IMPRESSION: 1. Technically limited and difficult evaluation of the abdominal structures du e to body habitus. 2. Spleen remains top normal size since the prior CT dated 10/08/2021. 3. Negative gallbladder. 4. Mild hepatic steatosis and hepatomegaly.
== END 2022-04-22 10:26 | disposition home or self-care (01) ==
LOC: RAD 10:26
PROVIDERS: PCP Family Medicine; Visit Provider Family Medicine
DX: Z01.89 Encounter for other specified special examinations (principal); K76.0 Fatty (change of) liver, not elsewhere classified; R16.0 Hepatomegaly, not elsewhere classified
CPT/HCPCS: 76700

== ENCOUNTER 2022-05-12 10:09 | Outpatient (CLI) | payer OTHER, SELFPAY ==
[2022-05-12 10:55] LABS: Alanine Aminotransferase 14 U/L (0-41); Albumin Level 3.8 g/dL (3.5-5.2); Alkaline Phosphatase 123 U/L (40-130); Anion Gap 12.3 (5-19); Aspartate Amino Transferase 19 U/L (0-40); Blood Urea Nitrogen 17 mg/dL (8-23); Calcium 8.6 mg/dL (8.5-10.5); Carbon Dioxide 25 mmol/L (22-29); Chloride 107 mmol/L (98-107); Globulin 3.4 g/dL (1.3-4.6); Glucose 102 mg/dL (65-115); Osmolality Calculated 292 mOsm/kg (285-295); Potassium 4.3 mmol/L (3.5-5.1); Sodium 140 mmol/L (136-145); Total Bilirubin 0.3 mg/dL (0.15-1.2); Total Protein 7.2 g/dL (6.6-8.7)
== END 2022-05-12 10:10 | disposition home or self-care (01) ==
LOC: LAB 10:12
PROVIDERS: PCP Family Medicine; Visit Provider Internal Medicine Critical Care Medicine
DX: J84.112 Idiopathic pulmonary fibrosis (principal)
CPT/HCPCS: 80053

== ENCOUNTER → 2022-05-24 13:06 | Outpatient (BNVA) | payer OTHER, SELFPAY | PROVIDERS: PCP Family Medicine; Visit Provider Internal Medicine Critical Care Medicine | DX: J43.9 Emphysema, unspecified (principal); J84.10 Pulmonary fibrosis, unspecified; R05.9 Cough, unspecified; J30.9 Allergic rhinitis, unspecified; I25.5 Ischemic cardiomyopathy; R91.1 Solitary pulmonary nodule; Z87.891 Personal history of nicotine dependence | CPT/HCPCS: 99214 ==

== ENCOUNTER → 2022-06-01 09:25 | Outpatient (BNVA) | payer OTHER, SELFPAY | PROVIDERS: PCP Family Medicine; Visit Provider Internal Medicine Cardiovascular Disease | DX: I25.10 Atherosclerotic heart disease of native coronary artery without angina pectoris (principal); J43.9 Emphysema, unspecified; I10 Essential (primary) hypertension; E78.2 Mixed hyperlipidemia; I77.9 Disorder of arteries and arterioles, unspecified; Z87.891 Personal history of nicotine dependence | CPT/HCPCS: 99214 ==

== ENCOUNTER → 2022-06-02 07:54 | Outpatient (BNVA) | payer OTHER, SELFPAY | PROVIDERS: PCP Family Medicine; Visit Provider Nurse Practitioner Family | DX: L30.9 Dermatitis, unspecified (principal); Z98.890 Other specified postprocedural states | CPT/HCPCS: 73610; 99213 ==

== ENCOUNTER 2022-06-13 08:44 | Outpatient (CLI) | payer OTHER, SELFPAY ==
[2022-06-13 09:27] LABS: Alanine Aminotransferase 18 U/L (0-41); Albumin Level 3.9 g/dL (3.5-5.2); Alkaline Phosphatase 125 U/L (40-130); Anion Gap 12.2 (5-19); Aspartate Amino Transferase 21 U/L (0-40); Blood Urea Nitrogen 13 mg/dL (8-23); Calcium 8.7 mg/dL (8.5-10.5); Carbon Dioxide 23 mmol/L (22-29); Chloride 106 mmol/L (98-107); Globulin 3.3 g/dL (1.3-4.6); Glucose 106 mg/dL (65-115); Osmolality Calculated 285 mOsm/kg (285-295); Potassium 4.2 mmol/L (3.5-5.1); Sodium 137 mmol/L (136-145); Total Bilirubin 0.2 mg/dL (0.15-1.2); Total Protein 7.2 g/dL (6.6-8.7)
== END 2022-06-13 08:45 | disposition home or self-care (01) ==
LOC: LAB 08:47
PROVIDERS: PCP Family Medicine; Visit Provider Internal Medicine Critical Care Medicine
DX: J84.112 Idiopathic pulmonary fibrosis (principal)
CPT/HCPCS: 36415; 80053

== ENCOUNTER 2022-07-12 12:15 | Outpatient (CLI) | payer OTHER, SELFPAY ==
[2022-07-12 13:11] LABS: Alanine Aminotransferase 18 U/L (0-41); Albumin Level 3.8 g/dL (3.5-5.2); Alkaline Phosphatase 122 U/L (40-130); Anion Gap 13.9 (5-19); Aspartate Amino Transferase 25 U/L (0-40); Blood Urea Nitrogen 22 mg/dL (8-23); Calcium 9.2 mg/dL (8.5-10.5); Carbon Dioxide 23 mmol/L (22-29); Chloride 105 mmol/L (98-107); Globulin 3.6 g/dL (1.3-4.6); Glucose 95 mg/dL (65-115); Osmolality Calculated 289 mOsm/kg (285-295); Potassium 3.9 mmol/L (3.5-5.1); Sodium 138 mmol/L (136-145); Total Bilirubin 0.2 mg/dL (0.15-1.2); Total Protein 7.4 g/dL (6.6-8.7)
== END 2022-07-12 12:16 | disposition home or self-care (01) ==
PROVIDERS: PCP Family Medicine; Visit Provider Internal Medicine Critical Care Medicine
DX: J84.112 Idiopathic pulmonary fibrosis (principal)
CPT/HCPCS: 36415; 80053

== ENCOUNTER 2022-09-14 06:00 | Outpatient (RCR) | payer OTHER, SELFPAY | END 2022-09-27 23:59 | disposition home or self-care (01) | LOC: SPT 06:00 | PROVIDERS: PCP Family Medicine; Visit Provider Family Medicine | DX: R26.81 Unsteadiness on feet (principal) | CPT/HCPCS: 97161 ==

== ENCOUNTER → 2022-09-23 08:38 | Outpatient (BNVA) | payer OTHER, SELFPAY | PROVIDERS: PCP Family Medicine; Visit Provider Internal Medicine Pulmonary Disease | DX: J43.9 Emphysema, unspecified (principal); R91.1 Solitary pulmonary nodule; J84.10 Pulmonary fibrosis, unspecified; R05.9 Cough, unspecified; J30.9 Allergic rhinitis, unspecified; I25.5 Ischemic cardiomyopathy; R04.0 Epistaxis; Z87.891 Personal history of nicotine dependence | CPT/HCPCS: 99214 ==

== ENCOUNTER 2022-09-28 06:00 | Outpatient (RCR) | payer OTHER, SELFPAY | END 2022-10-25 23:59 | disposition home or self-care (01) | LOC: SPT 06:00 | PROVIDERS: PCP Family Medicine; Visit Provider Family Medicine | DX: R26.81 Unsteadiness on feet (principal) | CPT/HCPCS: 97110 ==

== ENCOUNTER 2022-10-05 08:32 | Outpatient (CLI) | payer OTHER, SELFPAY | END 2022-10-05 08:33 | disposition home or self-care (01) | LOC: RT 08:35 | PROVIDERS: PCP Family Medicine; Visit Provider Internal Medicine Pulmonary Disease | DX: R91.1 Solitary pulmonary nodule (principal); J43.9 Emphysema, unspecified; J84.10 Pulmonary fibrosis, unspecified | CPT/HCPCS: 94010; 94726; 94729 ==

== ENCOUNTER 2022-10-13 09:06 | Outpatient (CLI) | payer OTHER, SELFPAY ==
[2022-10-13 10:34] LABS: Alanine Aminotransferase 16 U/L (0-41); Albumin Level 3.1 g/dL (3.5-5.2); Alkaline Phosphatase 107 U/L (40-130); Anion Gap 13.7 (5-19); Aspartate Amino Transferase 23 U/L (0-40); Blood Urea Nitrogen 15 mg/dL (8-23); Calcium 8.3 mg/dL (8.5-10.5); Carbon Dioxide 22 mmol/L (22-29); Chloride 105 mmol/L (98-107); Globulin 4.1 g/dL (1.3-4.6); Glucose 105 mg/dL (65-115); Osmolality Calculated 285 mOsm/kg (285-295); Potassium 3.7 mmol/L (3.5-5.1); Sodium 137 mmol/L (136-145); Total Bilirubin 0.2 mg/dL (0.15-1.2); Total Protein 7.2 g/dL (6.6-8.7)
[2022-10-14 10:30] LABS: SS A Ro Sjogrens Antibody <1.0 NEG AI (<1.0 NEG); SS-B/LA IGG <1.0 NEG AI (<1.0 NEG)
[2022-10-14 12:45] LABS: Cyclic Citrullinated Peptide <16 UNITS
== END 2022-10-13 09:07 | disposition home or self-care (01) ==
LOC: LAB 09:08
PROVIDERS: PCP Family Medicine; Visit Provider Internal Medicine Pulmonary Disease
DX: J84.112 Idiopathic pulmonary fibrosis (principal); J84.10 Pulmonary fibrosis, unspecified
CPT/HCPCS: 80053; 86200; 86235

== ENCOUNTER 2022-10-26 06:00 | Outpatient (RCR) | payer OTHER, SELFPAY | END 2022-11-25 23:59 | disposition home or self-care (01) | LOC: SPT 06:00 | PROVIDERS: PCP Family Medicine; Visit Provider Family Medicine | DX: R26.81 Unsteadiness on feet (principal) | CPT/HCPCS: 97110 ==

== ENCOUNTER 2022-10-26 07:31 | Outpatient (CLI) | payer OTHER, SELFPAY ==
--- NOTE | 2022-10-26 08:15 | CT_ITS ---
WS: [id number] LDCT LUNG CANCER SCREENING TECHNIQUE: Noncontrast CT of the chest with coronal and sagittal reformatted images. CLINICAL INFORMATION: lung screening COMPARISON: CT chest 2021 DLP: 70.69 mGy.cm DIvol: Mean CTDIvol: 1.60 (mGy) All CT scans at [facility] use at least one of these dose optimization techniques: automat ed exposure control; mA and/or kV adjustment per patient size (includes targeted exams where dose is matched to clinical indication); or iterative reconstruction. FINDINGS: Cardiomegaly. Normal caliber thoracic aorta. Mild aortic calcification. Mild coronary calci fication. A few prominent anterior mediastinal and peribronchial lymph nodes unchanged. Bronchovascul ar thickening along the bhumi is unchanged. No axillary lymphadenopathy. Normal GE junction. Mild thoracic kyphosis. Hypertrophic changes thoracic spine. Bilateral interstitial thickening and scattered reticular opacities more prominent in the lower lobes bilaterally similar to previous. Mild early honeycombing in the RIGHT lower lobe unchanged. 6 mm nodule in the LEFT upper lobe measures slightly larger and more prominent today. Recommend 6 mon th follow-up. This measured approximately 4 mm previous. Perihilar bronchiectasis similar in appearan ce. No focal consolidation or significant pleural fluid. CT/CT lung screening [id number] IMPRESSION: LUNG-RADS: 3-Probably Benign FOLLOW UP: 6 Month LDCT
== END 2022-10-26 07:32 | disposition home or self-care (01) ==
LOC: RAD 07:34
PROVIDERS: PCP Family Medicine; Visit Provider Internal Medicine Pulmonary Disease
DX: Z12.2 Encounter for screening for malignant neoplasm of respiratory organs (principal); F17.210 Nicotine dependence, cigarettes, uncomplicated; J44.9 Chronic obstructive pulmonary disease, unspecified; J84.10 Pulmonary fibrosis, unspecified
CPT/HCPCS: 71271

== ENCOUNTER → 2022-11-10 12:12 | Outpatient (BNVA) | payer OTHER, SELFPAY | PROVIDERS: PCP Family Medicine; Visit Provider Internal Medicine Pulmonary Disease | DX: J84.10 Pulmonary fibrosis, unspecified (principal); J43.9 Emphysema, unspecified; J30.9 Allergic rhinitis, unspecified; J41.0 Simple chronic bronchitis; I25.5 Ischemic cardiomyopathy; I25.10 Atherosclerotic heart disease of native coronary artery without angina pectoris; Z87.891 Personal history of nicotine dependence; R91.8 Other nonspecific abnormal finding of lung field; R50.9 Fever, unspecified; R06.02 Shortness of breath; R91.1 Solitary pulmonary nodule; Z79.899 Other long term (current) drug therapy | CPT/HCPCS: 71046; 99214 ==

== ENCOUNTER → 2022-11-11 07:00 | Outpatient (BNVA) | payer OTHER, SELFPAY | PROVIDERS: PCP Family Medicine; Visit Provider Internal Medicine Pulmonary Disease | DX: R05.8 Other specified cough (principal); R50.9 Fever, unspecified; R06.02 Shortness of breath | CPT/HCPCS: 87070; 87205 ==

== ENCOUNTER 2022-11-26 06:00 | Outpatient (RCR) | payer OTHER, SELFPAY | END 2022-12-13 23:59 | disposition home or self-care (01) | LOC: SPT 06:00 | PROVIDERS: PCP Family Medicine; Visit Provider Family Medicine | DX: R26.81 Unsteadiness on feet (principal) | CPT/HCPCS: 97110 ==

== ENCOUNTER → 2022-11-30 11:00 | Outpatient (BNVA) | payer OTHER, SELFPAY | PROVIDERS: PCP Family Medicine; Visit Provider Internal Medicine Cardiovascular Disease | DX: R06.02 Shortness of breath (principal); I25.10 Atherosclerotic heart disease of native coronary artery without angina pectoris; I11.9 Hypertensive heart disease without heart failure; J43.9 Emphysema, unspecified; J84.10 Pulmonary fibrosis, unspecified; I10 Essential (primary) hypertension; E78.2 Mixed hyperlipidemia; Z87.891 Personal history of nicotine dependence | CPT/HCPCS: 36415; 80048; 83880; 99214 ==

== ENCOUNTER → 2023-02-03 09:57 | Outpatient (BNVA) | payer OTHER, SELFPAY | PROVIDERS: PCP Family Medicine; Visit Provider Podiatrist Foot & Ankle Surgery | DX: S92.302A Fracture of unspecified metatarsal bone(s), left foot, initial encounter for closed fracture (principal); G62.9 Polyneuropathy, unspecified; W19.XXXA Unspecified fall, initial encounter | CPT/HCPCS: 99204 ==

== ENCOUNTER → 2023-02-08 08:25 | Outpatient (BNVA) | payer OTHER, SELFPAY | PROVIDERS: PCP Family Medicine; Visit Provider Internal Medicine Pulmonary Disease | DX: J43.9 Emphysema, unspecified (principal); J84.10 Pulmonary fibrosis, unspecified; J30.9 Allergic rhinitis, unspecified; I25.5 Ischemic cardiomyopathy; R91.1 Solitary pulmonary nodule; Z87.891 Personal history of nicotine dependence; Z91.81 History of falling | CPT/HCPCS: 99214 ==

== ENCOUNTER → 2023-02-24 09:21 | Outpatient (BNVA) | payer OTHER, SELFPAY | PROVIDERS: PCP Family Medicine; Visit Provider Podiatrist Foot & Ankle Surgery | DX: S92.302A Fracture of unspecified metatarsal bone(s), left foot, initial encounter for closed fracture (principal); W19.XXXA Unspecified fall, initial encounter; G62.9 Polyneuropathy, unspecified | CPT/HCPCS: 73630; 99213 ==

== ENCOUNTER → 2023-03-17 09:59 | Outpatient (BNVA) | payer OTHER, SELFPAY | PROVIDERS: PCP Family Medicine; Visit Provider Podiatrist Foot & Ankle Surgery | DX: S92.302A Fracture of unspecified metatarsal bone(s), left foot, initial encounter for closed fracture (principal); X58.XXXA Exposure to other specified factors, initial encounter; G62.9 Polyneuropathy, unspecified | CPT/HCPCS: 73630; 99213 ==

== ENCOUNTER → 2023-05-11 09:06 | Outpatient (BNVA) | payer OTHER, SELFPAY | PROVIDERS: PCP Family Medicine; Visit Provider Internal Medicine Pulmonary Disease | DX: J43.9 Emphysema, unspecified (principal); J84.10 Pulmonary fibrosis, unspecified; J30.9 Allergic rhinitis, unspecified; I25.5 Ischemic cardiomyopathy; R91.8 Other nonspecific abnormal finding of lung field; J47.9 Bronchiectasis, uncomplicated; Z87.891 Personal history of nicotine dependence | CPT/HCPCS: 99214 ==

== ENCOUNTER → 2023-06-14 10:40 | Outpatient (BNVA) | payer OTHER, SELFPAY | PROVIDERS: PCP Family Medicine; Visit Provider Internal Medicine Cardiovascular Disease | DX: R07.9 Chest pain, unspecified (principal); I25.10 Atherosclerotic heart disease of native coronary artery without angina pectoris; I77.9 Disorder of arteries and arterioles, unspecified; J43.9 Emphysema, unspecified; J84.10 Pulmonary fibrosis, unspecified; I25.5 Ischemic cardiomyopathy; I10 Essential (primary) hypertension; E78.2 Mixed hyperlipidemia; Z87.891 Personal history of nicotine dependence | CPT/HCPCS: 93005; 99214 ==

== ENCOUNTER → 2023-08-10 10:22 | Outpatient (BNVA) | payer OTHER, SELFPAY | PROVIDERS: PCP Family Medicine; Visit Provider Internal Medicine Pulmonary Disease | DX: J43.9 Emphysema, unspecified (principal); Z87.891 Personal history of nicotine dependence; J84.10 Pulmonary fibrosis, unspecified; J43.2 Centrilobular emphysema; J30.9 Allergic rhinitis, unspecified; I25.5 Ischemic cardiomyopathy; R91.1 Solitary pulmonary nodule | CPT/HCPCS: 99214 ==

== ENCOUNTER 2023-08-17 10:13 | Outpatient (CLI) | payer OTHER, SELFPAY ==
--- NOTE | 2023-08-17 10:45 | CT_ITS ---
WS: [id number] LDCT LUNG CANCER SCREENING TECHNIQUE: Noncontrast CT of the chest with coronal and sagittal reformatted images. CLINICAL INFORMATION: Cancer Screen COMPARISON: Outside CT 05/02/2023 report not available and prior CT 10/26/2022 DLP: 125.80 mGy.cm DIvol: Mean CTDIvol: 3.40 (mGy) All CT scans at [facility] use at least one of these dose optimization techniques: automat ed exposure control; mA and/or kV adjustment per patient size (includes targeted exams where dose is matched to clinical indication); or iterative reconstruction. FINDINGS: Bilateral interstitial thickening and scattered reticular opacities more prominent in the lower lobes bilaterally similar to previous. Honeycombing in the RIGHT greater than LEFT lower lobes unchanged s uspicious for UIP. Stable 6 mm nodule LEFT upper lobe.Perihilar bronchiectasis similar in appearance. Cardiomegaly. Normal caliber thoracic aorta. Mild aortic calcification. Mild coronary calcification. A few prominent anterior mediastinal and peribronchial lymph nodes unchanged from the prior studies. Bronchovascular thickening along the bhumi is unchanged. No axillary lymphadenopathy. Normal GE junct ion. Mild thoracic kyphosis. Hypertrophic changes thoracic spine. IMPRESSION: CT/CT lung screening [id number] LUNG-RADS: 2-Benign Appearance or Behavior FOLLOW UP: 12 Month: Continue annual screening with LDCT
== END 2023-08-17 10:14 | disposition home or self-care (01) ==
LOC: RAD 10:13
PROVIDERS: PCP Family Medicine; Visit Provider Internal Medicine Pulmonary Disease
DX: Z12.2 Encounter for screening for malignant neoplasm of respiratory organs (principal); Z87.891 Personal history of nicotine dependence
CPT/HCPCS: 71271

== ENCOUNTER 2023-08-31 08:47 | Outpatient (CLI) | payer OTHER, SELFPAY ==
[2023-08-31 09:05] VITALS: PULSE 65; RESP 18; O2SAT 96
[2023-08-31] MEDS: albuterol 2.5 mg/3 mL Neb INHALATION (09:05)
[2023-08-31 09:09] VITALS: PULSE 66
== END 2023-08-31 08:48 | disposition home or self-care (01) ==
LOC: RT 08:49
PROVIDERS: PCP Family Medicine; Visit Provider Internal Medicine Pulmonary Disease
DX: J43.9 Emphysema, unspecified (principal)
CPT/HCPCS: 94060; 94618; 94726; 94729; J7613

== ENCOUNTER → 2023-10-11 14:47 | Outpatient (BNVA) | payer OTHER, SELFPAY | PROVIDERS: PCP Family Medicine; Visit Provider Internal Medicine Pulmonary Disease | DX: J43.9 Emphysema, unspecified (principal); J84.10 Pulmonary fibrosis, unspecified; J43.2 Centrilobular emphysema; J30.9 Allergic rhinitis, unspecified; I25.5 Ischemic cardiomyopathy; R91.1 Solitary pulmonary nodule | CPT/HCPCS: 99214 ==

== ENCOUNTER → 2024-01-09 09:53 | Outpatient (BNVA) | payer OTHER, SELFPAY | PROVIDERS: PCP Family Medicine; Visit Provider Internal Medicine Cardiovascular Disease | DX: I25.10 Atherosclerotic heart disease of native coronary artery without angina pectoris (principal); E78.2 Mixed hyperlipidemia; I10 Essential (primary) hypertension; I77.9 Disorder of arteries and arterioles, unspecified; Z87.891 Personal history of nicotine dependence | CPT/HCPCS: 99214 ==

== ENCOUNTER → 2024-04-10 12:43 | Outpatient (BNVA) | payer OTHER, SELFPAY | PROVIDERS: PCP Family Medicine; Visit Provider Internal Medicine Critical Care Medicine | DX: Z87.891 Personal history of nicotine dependence (principal); J96.11 Chronic respiratory failure with hypoxia; Z99.81 Dependence on supplemental oxygen; J84.10 Pulmonary fibrosis, unspecified; J43.9 Emphysema, unspecified; J84.112 Idiopathic pulmonary fibrosis; R91.1 Solitary pulmonary nodule; J47.9 Bronchiectasis, uncomplicated; K21.9 Gastro-esophageal reflux disease without esophagitis; E66.9 Obesity, unspecified; Z68.34 Body mass index [BMI] 34.0-34.9, adult; Z71.82 Exercise counseling; Z71.89 Other specified counseling | CPT/HCPCS: 99215 ==

== ENCOUNTER 2024-07-21 14:00 | Emergency (ER) | payer OTHER, MEDICARE, SELFPAY ==
[2024-07-21] VITALS (7 sets, daily range): BP systolic 117–147; BP diastolic 71–78; PULSE 73–85; RESP 18–24; TEMP 36.7; O2SAT 91–96; BMI 32.1
--- NOTE | 2024-07-21 14:14 | XRR_ITS ---
PROCEDURE INFORMATION: Exam: XR Chest Exam date and time: 07/21/2024 3:10 PM Age: 79 years old Clinical indication: Cough and dyspnea; Additional info: Dyspnea/cough TECHNIQUE: Imaging protocol: Radiologic exam of the chest. Views: 1 view. COMPARISON: CT lung screening [id number] 08/17/2023 10:30 AM FINDINGS: Lungs: Both lungs demonstrate diffuse interstitial coarsening which is felt to be chronic. No lung mass or infiltrate. Pleural spaces: Unremarkable. No pleural effusion. No pneumothorax. Heart/Mediastinum: Unremarkable. No cardiomegaly. Bones/joints: Unremarkable. XR/XR chest 1V portable [id number] IMPRESSION: 1. No acute findings. 2. Chronic lung changes noted
--- NOTE | 2024-07-21 14:15 | ECG_ITS ---
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
--- NOTE | 2024-07-21 14:25 | ED_ITS ---
HPI - SOB/Dyspnea 2 General: Chief Complaint: Shortness of Breath/Dyspnea Stated Complaint: SOB, coughing, congestion Time Seen by Provider: 07/21/24 14:14 History of Present Illness: HPI Narrative: 79-year-old male presents to the emergen cy room complaining of cough and congestion's been going on for the last 1 to 2 weeks. Patient's complaining of productive cough no hemoptysis. Denies any chest pain. Patient has known history of pulmonary for interstitial fibrosis. No diarrhea no vomiting. Associated symptoms: Reports chest congestion; Deny abdominal pain, chest pain or fever(s) Related Data Home Medications Medication Instructions Recorded Confirmed aspirin 81 mg tablet,delayed 81 mg PO DAILY 11/12/19 07/21/24 release (Adult Low Dose Aspirin) finasteride 5 mg tablet 5 mg PO DAILY 11/12/19 07/21/24 metoprolol tartrate 50 mg tablet 25 mg PO BID 11/12/19 07/21/24 pantoprazole 40 mg tablet,delayed 40 mg PO QAM 11/12/19 07/21/24 release clopidogrel 75 mg tablet 75 mg PO DAILY 05/24/22 07/21/24 bupropion HCl 150 mg tablet,12 hr 150 mg PO QAM 06/01/22 07/21/24 sustained-release gabapentin 100 mg capsule See Rx Instructions .Route .COMPLEX 06/01/22 07/21/24 nitroglycerin 0.4 mg sublingual 0.4 mg sublingual Q5M PRN Chest 06/14/23 07/21/24 tablet Pain ferrous sulfate 325 mg (65 mg 325 mg PO TID 08/10/23 07/21/24 iron) tablet cholecalciferol (vitamin D3) 50 50 mcg PO DAILY 04/10/24 07/21/24 mcg (2,000 unit) capsule fluticasone propionate 50 1 spray intranasal DAILY 04/10/24 07/21/24 mcg/actuation nasal spray,suspension (Allergy Relief (fluticasone)) albuterol sulfate 90 mcg/actuation 2 puff inhalation QID PRN 07/21/24 07/21/24 aerosol inhaler Shortness Of Breath atorvastatin 10 mg tablet 10 mg PO QPM 07/21/24 07/21/24 benzonatate 100 mg capsule 100 mg PO BID PRN Cough 07/21/24 07/21/24 cetirizine 10 mg tablet 10 mg PO DAILY 07/21/24 07/21/24 cholecalciferol (vitamin D3) 50 100 mcg PO DAILY 07/21/24 07/21/24 mcg (2,000 unit) tablet (Vitamin D3) dextran 70-hypromellose eye drops 1 drp ophthalmic (eye) Q4H PRN Dry 07/21/24 07/21/24 in a dropperette (Artificial Tears Eyes (PF) drops in a dropperette) guaifenesin 100 mg/5 mL oral 200 mg PO TID cough 07/21/24 07/21/24 liquid (Wal-Tussin) ketoconazole 2 % shampoo See Rx Instructions .Route .COMPLEX 07/21/24 07/21/24 mv-mn-folic 200 mcg-vit K 15 1 cap PO BID 07/21/24 07/21/24 mcg-lutein 5 mg-zeaxanthin 1 mg capsule (PreserVision AREDS 2 Plus Multivit) prazosin 2 mg capsule 2 mg PO QPM 07/21/24 07/21/24 quetiapine 100 mg tablet 50 mg PO BEDTIME 07/21/24 07/21/24 vitamin B complex-vitamin C-folic 1 tab PO DAILY 07/21/24 07/21/24 acid 0.8 mg tablet Previous Rx's Medication Instructions Recorded CAM JIMMY #1 ea 10/19/21 albuterol sulfate 2.5 mg/3 mL 2.5 mg (3 mL) inhalation Q6H 11/10/22 (0.083 %) solution for nebulization #1,500 mL budesonide 160 mcg-glycopyr 9 2 inh inhalation BID #10.7 grams 12/14/23 mcg-formot 4.8 mcg/actuation HFA inhaler (Breztri Aerosphere) losartan 50 mg tablet 50 mg PO DAILY #90 tabs 01/09/24 ipratropium 0.5 mg-albuterol 3 mg 3 ml inhalation Q6H PRN shortness 07/21/24 (2.5 mg base)/3 mL nebulization of breath or wheezing #180 mL soln prednisone 20 mg tablet 20 mg PO TID #15 tabs 07/21/24 Allergies Allergy/AdvReac Type Severity Reaction Status Date / Time cyclobenzaprine Allergy Unknown unknown Verified 07/21/24 14:08 [From Flexeril] lisinopril Allergy Unknown unknown Verified 07/21/24 14:08 Pirfenidone Allergy Unknown Uncoded 07/21/24 14:08 Review of Systems 2 Const: Denies: fever(s) or chills Card: Denies: chest pain Resp: Reports: dyspnea, productive cough, wheezing and chest congestion GI: Denies: abdominal pain : Denies: dysuria, urinary frequency or urinary urgency Musc: Denies: neck pain or back pain Skin/Breast: Denies: rash PFSH ED 2 PFSH: Medical History Ischemic cardiomyopathy Atherosclerotic heart disease of [place] coronary artery without angina pectoris CAD (coronary artery disease) COPD (chronic obstructive pulmonary disease) Hypertension Hyperlipidemia Osteoarthritis Prostatitis Depression Anxiety PTSD (post-traumatic stress disorder) Spinal stenosis Lumbar radiculopathy Peripheral neuropathy Surgical History H/O excision of mass (06/08/20) Left hand Status post colonoscopy (06/08/20) History of fusion of cervical spine Hx of circumcision Hx of arthroscopic knee surgery Family History Mother CAD (coronary artery disease) Cancer Diabetes Stroke Father Cancer Brother Cancer Chronic kidney disease (CKD) Diabetes Son Diabetes Family/Other Diabetes Other Hypertension Denies family history of Clotting disorder Dementia Suicide Anesthesia complication Bleeding disorder Lung disease Social History Smoking and tobacco/nicotine status: former use of tobacco/nicotine Quit status (tobacco/nicotine): has quit using Year quit tobacco: 1989 - .5 PPD x 40 Years Second hand smoke exposure: Yes Alcohol intake: never Substance/Drug Use: never Lives independently: Yes Household members: spouse Marital status: service: Yes Current occupational status: disabled Do you think of yourself as: Straight/Heterosexual Current gender identity: Male Physical Exam 2 Const: GENERAL APPEARANCE: cooperative ORIENTATION/CONSCIOUSNESS: Yes awake, Yes oriented to person, Yes oriented to place and Yes oriented to time HENMT: COMMON NORMALS: normocephalic, atraumatic and hearing grossly normal bilaterally HEAD & SCALP: normocephalic and atraumatic Resp: COMMON NORMALS: normal respiratory effort, No retractions, No use of accessory muscles and clear to auscultation bilaterally AUSCULTATION: clear to auscultation bilaterally Cardio: COMMON NORMALS: regular rate, regular rhythm and No murmurs present (Cardio) RATE: regular rate RHYTHM: regular rhythm GI: COMMON NORMALS: Soft to palpation and No hepatosplenomegaly present A USCULTATION: Yes normoactive bowel sounds PALPATION: Yes Soft to palpation, No Tenderness to palpation present (GI), No Guarding due to palpation present (GI) and Yes No hepatosplenomegaly present Extremity: COMMON NORMALS: normal to inspection, capillary refill normal, no clubbing, cyanosis or edema, no calf tenderness and no pedal edema Neuro: SENSORIUM/ORIENTATION: Yes oriented to person, Yes oriented to place and Yes oriented to time Skin: COMMON NORMALS: no rashes or lesions noted GENERAL SKIN EXAM: no rashes or lesions noted Course 2 Vital Signs: Vital signs: Vital Signs Temperature 98.0 F 07/21/24 14:04 Pulse Rate 85 07/21/24 17:55 Respiratory Rate 18 07/21/24 14:43 Blood Pressure 122/78 07/21/24 17:55 Pulse Oximetry 94 07/21/24 17:55 Oxygen Delivery Me thod Nasal Cannula 07/21/24 17:05 Oxygen Flow Rate 2 07/21/24 17:05 Fraction of Inspir ed Oxygen 2 07/21/24 14:04 MDM - SOB/Dyspnea Medical Decision Making Acute exacerbation COPD patient also has pretty significant interstitial fibrosis. He has improved after the DuoNeb and steroids. He is wanting to go home. He is maintaining his sats well on his usual oxygen. Discharged home on prednisone taper there is no sign of infection at this point gave him albuterol ipratropium bromide to use as needed. Recommend that he follow-up with his primary care doctor within the next week as a worsening or change symptoms return Medical Records I reviewed the patient's medical records. Lab Data I reviewed the patient's lab results. 07/21/24 14:27 07/21/24 14:27 Labs/Radiology: Radiology Impressions Chest X-Ray 07/21/24 14:14 IMPRESSION: 1. No acute findings. 2. Chronic lung changes noted Laboratory Results WBC 7.03 10^3/uL (3.29-11.43) 07/21/24 14: RBC 5.00 10^6/uL (3.85-5.65) 07/21/24 14: Hgb 13.20 g/dL (11.27-16.99) 07/21/24 14: Hct 43.3 % (37-53) 07/21/24 14: MCV 86.6 fl (82-101) 07/21/24 14: MCH 26.4 pg (27-33) L 07/21/24 14: MCHC 30.5 g/dL (30-55) 07/21/24 14: RDW 14.0 % (12.1-15.1) 07/21/24 14: Plt Count 260 10^3/cmm (157-399) 07/21/24 14: MPV 9.3 fL (7.4-10.4) 07/21/24 14: Neut % (Auto) 62.0 % 07/21/24 14: Lymph % (Auto) 18.8 % 07/21/24 14:27 Barnes % (Auto) 11.0 % 07/21/24 14: Eos % (Auto) 6.3 % 07/21/24 14: Baso % (Auto) 1.0 % 07/21/24 14: Neut # (Auto) 4.37 10^3/uL (1.8-7.7) 07/21/24 14: Lymph # (Auto) 1.3 10^3/uL (0.8-4.8) 07/21/24 14: Barnes # (Auto) 0.8 10^3/uL (0.2-0.9) 07/21/24 14: Eos # (Auto) 0.4 10^3/uL (0.0-0.8) 07/21/24 14: Baso # (Auto) 0.1 10^3/uL (0.0-0.1) 07/21/24 14: Nucleated RBC % (auto) 0 % 07/21/24 14: Nucleated RBCs # 0.0 /100WBC 07/21/24 14:27 Specimen Type Arterial 07/21/24 14:52 Sample Site Radial, right 07/21/24 14:52 ABG pH 7.42 (7.35-7.45) 07/21/24 14:52 ABG pCO2 40.4 mmHg (35-45) 07/21/24 14:52 ABG pO2 95.2 mmHg (80.0-100.0) 07/21/24 14:52 ABG PO2/FiO2 Ratio 340 07/21/24 14:52 ABG HCO3 26.0 mmol/L (22-26) 07/21/24 14:52 ABG O2 Saturation 97.8 07/21/24 14:52 ABG Base Excess 1.3 mmol/L (-2.0-2.0) 07/21/24 14:52 Dharmesh Test Pos 07/21/24 14:52 A-a O2 Gradient 6.7 mmHg (5-10) 07/21/24 14:52 Hematocrit 44.2 % (42-52) 07/21/24 14:52 Hgb O2 Saturation 95.7 % (95-100) 07/21/24 14:52 Carboxyhemoglobin 1.1 %THgb (0.4-20.1) 07/21/24 14:52 Methemoglobin 1.1 % (0.4-1.5) 07/21/24 14:52 Total Hemoglobin 14.4 g/dL (14-18) 07/21/24 14:52 Sodium 141.0 mmol/L (131-143) 07/21/24 14:52 Potassium 3.9 mmol/L (3.5-5.0) 07/21/24 14:52 Glucose 99.0 mg/dL (70-115) 07/21/24 14:52 Ionized Calcium 1.2 mmol/L (1.1-1.4) 07/21/24 14:52 O2 Delivery Device Nc 07/21/24 14:52 O2 Liters/Min 2.0 % 07/21/24 14:52 FiO2 28.0 % 07/21/24 14:52 Core Driller ID glc 07/21/24 14:52 Sodium 138 mmol/L (136-145) 07/21/24 14:27 Potassium 4.3 mmol/L (3.5-5.1) 07/21/24 14:27 Chloride 104 mmol/L (98-107) 07/21/24 14:27 Carbon Dioxide 24 mmol/L (22-29) 07/21/24 14:27 Anion Gap 14.3 (5-19) 07/21/24 14:27 BUN 14 mg/dL (8-23) 07/21/24 14:27 Creatinine 0.8 mg/dL (0.7-1.2) 07/21/24 14:27 GFR Calculation Not Reportable 07/21/24 14:27 Glucose 103 mg/dL (65-115) 07/21/24 14:27 Calculated Osmolality 287 mOsm/kg (285-295) 07/21/24 14:27 Lactic Acid 2.5 mmol/L (0.5-2.2) H 07/21/24 14:27 Calcium 8.5 mg/dL (8.5-10.5) 07/21/24 14:27 Total Bilirubin 0.3 mg/dL (0.15-1.2) 07/21/24 14:27 AST 19 U/L (0-40) 07/21/24 14:27 ALT 17 U/L (0-41) 07/21/24 14:27 Alkaline Phosphatase 125 U/L (40-130) 07/21/24 14:27 Troponin T Baseline < 6 ng/L (0-15) 07/21/24 14:27 Troponin T 120 Minute 6.00 ng/L (0-15) 07/21/24 16:27 Delta Troponin T 0.44853 ABS# (0-10) 07/21/24 16:27 Total Protein 6.5 g/dL (6.6-8.7) L 07/21/24 14:27 Albumin 3.3 g/dL (3.5-5.2) L 07/21/24 14:27 Globulin 3.2 g/dL (1.3-4.6) 07/21/24 14:27 Coronavirus (PCR) Negative (Negative) 07/21/24 14:28 Influenza A (PCR) Negative (Negative) 07/21/24 14:28 Influenza Type B (PCR) Negative (Negative) 07/21/24 14:28 RSV (PCR) Negative (Negative) 07/21/24 14:28 All radiology interpretation(s) finalized by discharge Discharge Plan Discharge Patient Disposition: Home Clinical Impression: Acute exacerbation of chronic obstructive airways disease, Interstitial pulmonary fibrosis Condition: Stable Prescriptions: New ipratropium-albuterol 0.5 mg-3 mg(2.5 mg base)/3 mL solution for nebulization 3 ml inhalation Q6H PRN (Reason: shortness of breath or wheezing) Qty: 180 0RF prednisone 20 mg tablet 20 mg PO TID Qty: 15 0RF Rx Instructions: 1 p.o. 3 times daily x3 days, 1 p.o. twice daily x2 days, 1 p.o. daily x2 days No Action finasteride 5 mg tablet 5 mg PO DAILY metoprolol tartrate 50 mg tablet 25 mg PO BID pantoprazole 40 mg tablet,delayed release (DR/EC) 40 mg PO QAM aspirin [Adult Low Dose Aspirin] 81 mg tablet,delayed release (DR/EC) 81 mg PO DAILY (DME) CAM WALKER See Rx Instructions .ROUTE .MEDSUPPLY Qty: 1 0RF Rx Instructions: As directed bupropion HCl 150 mg tablet sustained-release 12 hr 150 mg PO QAM gabapentin 100 mg capsule See Rx Instructions .ROUTE .COMPLEX Rx Instructions: Take 1 capsule by mouth in the morning, 1 capsule in the afternoon, and 2 capsules at bedtime. clopidogrel 75 mg tablet 75 mg PO DAILY nitroglycerin 0.4 mg tablet, sublingual 0.4 mg sublingual Q5M PRN (Reason: Chest Pain) Rx Instructions: do not exceed 3 doses per episode albuterol sulfate 2.5 mg /3 mL (0.083 %) solution for nebulization 2.5 mg inhalation Q6H Qty: 1500 0RF ferrous sulfate 325 mg (65 mg iron) tablet 325 mg PO TID losartan 50 mg tablet 50 mg PO DAILY Qty: 90 3RF fluticasone propionate [Allergy Relief (fluticasone)] 50 mcg/actuation spray,suspension 1 spray intranasal DAILY Rx Instructions: administer into each nostril cholecalciferol (vitamin D3) 50 mcg (2,000 unit) capsule 50 mcg PO DAILY Breztri Aerosphere 160-9-4.8 mcg/actuation HFA aerosol inhaler 2 inh inhalation BID Qty: 10.7 6RF ketoconazole 2 % Shampoo See Rx Instructions .ROUTE .COMPLEX Rx Instructions: 1 applic topically 2 times per week as directed. Leave on for 15 minutes then rinse thoroughly. Alternae using selsun blue shampoo. cetirizine 10 mg Tablet 10 mg PO DAILY atorvastatin 10 mg Tablet 10 mg PO QPM quetiapine 100 mg Tablet 50 mg PO BEDTIME benzonatate 100 mg Capsule 100 mg PO BID PRN (Reason: Cough) Folic Acid XTRA 0.8 mg Tablet 1 tab PO DAILY albuterol sulfate 90 mcg/actuation Hfa Aerosol Inhaler 2 puff INHALATION QID PRN (Reason: Shortness Of Breath) prazosin 2 mg Capsule 2 mg PO QPM Artificial Tears (PF) Dropperette 1 drp ophthalmic (eye) Q4H PRN (Reason: Dry Eyes) cholecalciferol (vitamin D3) [Vitamin D3] 50 mcg (2,000 unit) Tablet 100 mcg PO DAILY PreserVision AREDS 2 Plus MV 200 mcg-15 mcg- 5 mg-1 mg Capsule 1 cap PO BID guaifenesin [Wal-Tussin] 100 mg/5 mL liquid 200 mg PO TID Discharge Orders: Discharge ED (Routine); Ordered 07/21/24 Ordered By: Miguel Ramos Referrals: Gypsy Salcedo MD [Primary Care Provider] - Patient Instructions: Opioid Safety, Pain Management Coding Level of Care Code ED Email Marketing Manager for Rhina Card
[2024-07-21] MEDS: methylPREDNISolone sod succ 125 mg/2 mL INJ IVP (14:31)
[2024-07-21] MEDS: ipratropium-albuterol 3 mL Neb INHALATION (14:40)
[2024-07-21 14:41] LABS: Basophils # 0.1 10^3/uL (0.0-0.1); Eosinophils # 0.4 10^3/uL (0.0-0.8); Eosinophils % 6.3 %; Hematocrit 43.3 % (37-53); Lymphocytes # 1.3 10^3/uL (0.8-4.8); Lymphocytes % 18.8 %; Mean Corpuscular HGB Conc 30.5 g/dL (30-55); Mean Corpuscular Hemoglobin 26.4 pg (27-33); Mean Corpuscular Volume 86.6 fl (82-101); Mean Platelet Volume 9.3 fL (7.4-10.4); Monocytes # 0.8 10^3/uL (0.2-0.9); Neutrophils # 4.37 10^3/uL (1.8-7.7); Nucleated Red Blood Cells % 0 %; Platelet Count 260 10^3/cmm (157-399); White Blood Count 7.03 10^3/uL (3.29-11.43)
[2024-07-21 15:02] LABS: ABG PCO2 40.4 mmHg (35-45); ABG PH Result 7.42 (7.35-7.45); Arterial Blood Gas Hematocrit 44.2 % (42-52); Base Excess ABG 1.3 mmol/L (-2.0-2.0); Blood Gas Allen Test Pos; Blood Gas Operator Identificat glc; Blood Gas Sample Site Radial, right; Blood Gas Sample Type Arterial; Carboxyhemoglobin 1.1 %THgb (0.4-20.1); HGB O2 Sat 95.7 % (95-100); Ionized Calcium Level - ABG 1.2 mmol/L (1.1-1.4); Methemoglobin 1.1 % (0.4-1.5); Oxygen Saturation ABG 97.8; PO2 ABG 95.2 mmHg (80.0-100.0); Potassium Level - ABG 3.9 mmol/L (3.5-5.0); Total Hemoglobin 14.4 g/dL (14-18)
[2024-07-21 15:03] LABS: Alveolar-Arterial Oxygen Gradi 6.7 mmHg (5-10); Oxygen Device NC; PO2 FiO2 Ratio Arterial Blood 340
[2024-07-21 15:04] LABS: Alanine Aminotransferase 17 U/L (0-41); Albumin Level 3.3 g/dL (3.5-5.2); Alkaline Phosphatase 125 U/L (40-130); Anion Gap 14.3 (5-19); Aspartate Amino Transferase 19 U/L (0-40); Blood Urea Nitrogen 14 mg/dL (8-23); Calcium 8.5 mg/dL (8.5-10.5); Carbon Dioxide 24 mmol/L (22-29); Chloride 104 mmol/L (98-107); Creatinine Clr Calc Pharmacy 85.3826; Globulin 3.2 g/dL (1.3-4.6); Glucose 103 mg/dL (65-115); Osmolality Calculated 287 mOsm/kg (285-295); Potassium 4.3 mmol/L (3.5-5.1); Sodium 138 mmol/L (136-145); Total Bilirubin 0.3 mg/dL (0.15-1.2); Total Protein 6.5 g/dL (6.6-8.7)
[2024-07-21 15:05] LABS: Lactic Sepsis W/Reflex 2.5 mmol/L (0.5-2.2)
[2024-07-21 15:25] LABS: Covid PCR NEGATIVE (Negative); Influenza A NEGATIVE (Negative); Influenza B NEGATIVE (Negative); Respiratory Syncytial Virus Ce NEGATIVE (Negative)
[2024-07-21 15:35] LABS: Troponin(5th) Baseline < 6 ng/L (0-15)
[2024-07-21] MEDS: sodium chloride 0.9% 500 ML 999 ML IV (15:41)
[2024-07-21 16:25] LABS: Reflex Lactate Order REFLEX LACTIC ORDERD
[2024-07-21 16:54] LABS: Troponin 5 2HR Delta 0.00001 ABS# (0-10)
== END 2024-07-21 17:57 | disposition home or self-care (01) ==
PROVIDERS: Emergency Provider Family Medicine; PCP Family Medicine
DX: J44.1 Chronic obstructive pulmonary disease with (acute) exacerbation (principal); J84.10 Pulmonary fibrosis, unspecified; Z79.82 Long term (current) use of aspirin; Z79.02 Long term (current) use of antithrombotics/antiplatelets; Z11.52 Encounter for screening for COVID-19; Z87.891 Personal history of nicotine dependence; I25.10 Atherosclerotic heart disease of native coronary artery without angina pectoris; E78.5 Hyperlipidemia, unspecified; I10 Essential (primary) hypertension
CPT/HCPCS: 0241U; 36415; 36600; 71045; 80051; 80053; 82330; 82805; 83605; 84484; 85025; 87040; 93005; 94640; 96374; 99285; J2919; J7040

== ENCOUNTER → 2024-08-13 09:39 | Outpatient (BNVA) | payer OTHER, SELFPAY | PROVIDERS: PCP Family Medicine; Visit Provider Nurse Practitioner Family | DX: R07.9 Chest pain, unspecified (principal); I25.10 Atherosclerotic heart disease of native coronary artery without angina pectoris; I25.5 Ischemic cardiomyopathy; I10 Essential (primary) hypertension; R60.0 Localized edema; J84.10 Pulmonary fibrosis, unspecified; J44.9 Chronic obstructive pulmonary disease, unspecified; Z87.891 Personal history of nicotine dependence | CPT/HCPCS: 36415; 80048; 83880; 99214 ==

== ENCOUNTER 2024-08-26 06:54 | Outpatient (CLI) | payer OTHER, SELFPAY ==
--- NOTE | 2024-08-26 07:00 | USCV_ITS ---
Krishna Hess Age: 79 Gender: M : 1945 Exam Date: 08/26/2024 07:14 Ordering Phys: Dilcia Correa Technologist: ANISH Exam Location: [facility] [place] Indication: FITZGERALD BP: 123 / 79 HR: 62 Rhythm: Sinus Technical Quality: Adequate MEASUREMENTS (Male / Female) Normal Values 2D ECHO LVOT Diameter 2.2 cm LV Ejection Fraction MOD 4C 49.9 % LV Ejection Fraction MOD 2C 64.4 % LV Ejection Fraction 2C AL 65.9 % LA Diameter 4.3 cm RA Systolic Volume 4C AL 15.0 ml RA Systolic Volume 4C MOD 14.2 ml LA Sys Volume AL 36.0 cm cubed LA Sys Volume Index AL 16.4 cm cubed/m squared Aorta at Sinotubular Diameter 2.6 cm M-MODE LA Ao Ratio MM 1.5 AV Cusp Separation MM 1.4 cm DOPPLER AV Peak Velocity 156.0 cm/s LVOT Peak Velocity 103.0 cm/s AV Area Cont Eq vti 2.9 cm squared AV Area Cont Eq pk 2.6 cm squared MV Peak Velocity 90.0 cm/s MV Area PHT 2.3 cm squared Mitral E to A Ratio 0.8 TR Peak Velocity 166.0 cm/s TR Peak Gradient 11.0 mmHg TR Mean Velocity 138.0 cm/s TR Mean Gradient 8.3 mmHg TR Velocity Time Integral 43.2 cm TV Peak E Velocity 54.0 cm/s PV Peak Velocity 123.0 cm/s RV Ejection Time 0.3 s FINDINGS Left Ventricle Mild diffuse hypokinesia left ventricular ejection fraction of 50%.mild left ventricular hypertrophy. Grade I/IV diastolic dysfunction (abnormal relaxation filling pattern), normal to mildly elevated filling pressures. Right Ventricle Normal right ventricular size and systolic function. Right Atrium The right atrium is normal in size. Left Atrium Mildly increased left atrial size. Mitral Valve No gross abnormalities Aortic Valve No gross abnormalities noted . Tricuspid Valve Trace tricuspid valve regurgitation. Pulmonic Valve No gross abnormalities noted Pericardium Normal pericardium without effusion. Aorta Normal ascending aorta dimension. IVC Inferior vena cava not visualized. CONCLUSIONS Mild diffuse hypokinesia left ventricular ejection fraction of 50%.mild left ventricular hypertrophy. Grade I/IV diastolic dysfunction (abnormal relaxation filling pattern), normal to mildly elevated filling pressures. Mildly increased left atrial size. Trace tricuspid valve regurgitation. Estimated pulmonary artery peak systolic pressure within normal limit There is no pericardial effusion. Compared to the study from 01/18/2021, there is slight decline in the LV ejection fraction from 62% to 50% Dr Alberta Blackwell MD FAC (Electronically Signed) Final Date: 01 September 2024 18:14 S
== END 2024-08-26 06:55 | disposition home or self-care (01) ==
PROVIDERS: PCP Family Medicine; Visit Provider Nurse Practitioner Family
DX: I50.30 Unspecified diastolic (congestive) heart failure (principal); I25.10 Atherosclerotic heart disease of native coronary artery without angina pectoris; I25.5 Ischemic cardiomyopathy
CPT/HCPCS: 93306

== ENCOUNTER 2024-09-07 19:48 | Inpatient (IN) | payer OTHER, MEDICARE, SELFPAY ==
--- NOTE | 2024-09-07 19:49 | ECG_ITS ---
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 Measurements Intervals [place] Rate: 107 P: 35 NE: 197 QRS: -17 QRSD: 146 T: 115 QT: 348 QTc: 466 Interpretive Statements SINUS TACHYCARDIA WITH OCCASIONAL VENTRICULAR PREMATURE COMPLEXES INTRAVENTRICULAR CONDUCTION DELAY [130+ ms QRS DURATION] INFERIOR MYOCARDIAL INFARCTION , POSSIBLY ACUTE [40+ ms Q WAVE AND/OR ST/T ABNORMALITY IN II/aVF] ACUTE HI INTERPRETATION BASED ON A DEFAULT AGE OF 40 YEARS Compared to ECG 07/21/2024 14:34:25 Ventricular premature complex(es) now present Intraventricular conduction delay now present.Myocardial infarct finding now present Sinus rhythm no longer present.Left ventricular hypertrophy no longer present Electronically Signed On 09-10-2024 23:48:19 MONUMENT SETTER by Alberta Blackwell M.D. [email or web address]
[2024-09-07 19:54] VITALS: BP 132/82; PULSE 113; RESP 21; TEMP 37.1; O2SAT 87; BMI 31.9
[2024-09-07 20:11] VITALS: BP 119/87; PULSE 112; RESP 19; O2SAT 91
[2024-09-07] MEDS: aspirin 81 mg Chew Tablet 324 MG PO (20:34)
[2024-09-07 20:35] LABS: Basophils # 0.1 10^3/uL (0.0-0.1); Basophils % 0.6 %; Eosinophils # 0.2 10^3/uL (0.0-0.8); Eosinophils % 1.9 %; Hematocrit 45.6 % (37-53); Lymphocytes # 1.4 10^3/uL (0.8-4.8); Lymphocytes % 10.6 %; Mean Corpuscular HGB Conc 30.7 g/dL (30-55); Mean Corpuscular Hemoglobin 25.9 pg (27-33); Mean Corpuscular Volume 84.3 fl (82-101); Mean Platelet Volume 9.5 fL (7.4-10.4); Monocytes # 1.5 10^3/uL (0.2-0.9); Monocytes % 11.2 %; Neutrophils # 9.67 10^3/uL (1.8-7.7); Neutrophils % 75.1 %; Nucleated Red Blood Cells % 0 %; Platelet Count 221 10^3/cmm (157-399); Red Blood Count 5.41 10^6/uL (3.85-5.65); Red Cell Distribution Width 14.6 % (12.1-15.1); White Blood Count 12.89 10^3/uL (3.29-11.43)
[2024-09-07] MEDS: ondansetron 2 mg/ML SDV 2 mL 4 MG IVP (20:35)
[2024-09-07] MEDS: morphine 4 mg/mL SDV 1 mL 2 MG IVP (20:35)
[2024-09-07 20:40] LABS: Troponin(5th) Baseline 7 ng/L (0-15)
[2024-09-07 20:53] LABS: Alanine Aminotransferase 15 U/L (0-41); Alkaline Phosphatase 143 U/L (40-130); Anion Gap 15.4 (5-19); Aspartate Amino Transferase 18 U/L (0-40); Blood Urea Nitrogen 17 mg/dL (8-23); Calcium 9.4 mg/dL (8.5-10.5); Carbon Dioxide 24 mmol/L (22-29); Chloride 105 mmol/L (98-107); Creatinine Clr Calc Pharmacy 68.1497; Globulin 2.9 g/dL (1.3-4.6); Glucose 111 mg/dL (65-115); NT Pro B Type Natriuretic Pept 78 pg/mL (0-450); Osmolality Calculated 292 mOsm/kg (285-295); Potassium 4.4 mmol/L (3.5-5.1); Sodium 140 mmol/L (136-145); Total Bilirubin 0.3 mg/dL (0.15-1.2); Total Protein 6.9 g/dL (6.6-8.7)
--- NOTE | 2024-09-07 21:28 | W.ED.CHESTPA ---
HPI - Chest Pain General: Chief Complaint: Chest Pain Stated Complaint: CP Time Seen by Provider: 09/07/24 20:02 History of Present Illness: 79-year-old male patient with a history of COPD, on 2 to 4 L at home at baseline. He presents with chest discomfort, shortness of breath. Pain is ongoing for the last few hours. Pain is localized to his central chest. He reports increased shortness of breath with somewhat productive cough. He feels feverish. No increased leg swelling. Related Data Home Medications Medication Instructions Recorded Confirmed aspirin 81 mg tablet,delayed 81 mg PO DAILY 11/12/19 08/13/24 release (Adult Low Dose Aspirin) finasteride 5 mg tablet 5 mg PO DAILY 11/12/19 08/13/24 metoprolol tartrate 50 mg tablet 25 mg PO BID 11/12/19 08/13/24 pantoprazole 40 mg tablet,delayed 40 mg PO QAM 11/12/19 08/13/24 release clopidogrel 75 mg tablet 75 mg PO DAILY 05/24/22 08/13/24 bupropion HCl 150 mg tablet,12 hr 150 mg PO QAM 06/01/22 08/13/24 sustained-release gabapentin 100 mg capsule See Rx Instructions .Route .COMPLEX 06/01/22 08/13/24 nitroglycerin 0.4 mg sublingual 0.4 mg sublingual Q5M PRN Chest 06/14/23 08/13/24 tablet Pain ferrous sulfate 325 mg (65 mg 325 mg PO TID 08/10/23 08/13/24 iron) tablet cholecalciferol (vitamin D3) 50 50 mcg PO DAILY 04/10/24 08/13/24 mcg (2,000 unit) capsule fluticasone propionate 50 1 spray intranasal DAILY 04/10/24 08/13/24 mcg/actuation nasal spray,suspension (Allergy Relief (fluticasone)) albuterol sulfate 90 mcg/actuation 2 puff inhalation QID PRN 07/21/24 08/13/24 aerosol inhaler Shortness Of Breath atorvastatin 10 mg tablet 10 mg PO QPM 07/21/24 08/13/24 benzonatate 100 mg capsule 100 mg PO BID PRN Cough 07/21/24 08/13/24 cetirizine 10 mg tablet 10 mg PO DAILY 07/21/24 08/13/24 cholecalciferol (vitamin D3) 50 100 mcg PO DAILY 07/21/24 08/13/24 mcg (2,000 unit) tablet (Vitamin D3) dextran 70-hypromellose eye drops 1 drp ophthalmic (eye) Q4H PRN Dry 07/21/24 08/13/24 in a dropperette (Artificial Tears Eyes (PF) drops in a dropperette) guaifenesin 100 mg/5 mL oral 200 mg PO TID cough 07/21/24 08/13/24 liquid (Wal-Tussin) ketoconazole 2 % shampoo See Rx Instructions .Route .COMPLEX 07/21/24 08/13/24 mv-mn-folic 200 mcg-vit K 15 1 cap PO BID 07/21/24 08/13/24 mcg-lutein 5 mg-zeaxanthin 1 mg capsule (PreserVision AREDS 2 Plus Multivit) prazosin 2 mg capsule 2 mg PO QPM 07/21/24 08/13/24 quetiapine 100 mg tablet 50 mg PO BEDTIME 07/21/24 08/13/24 vitamin B complex-vitamin C-folic 1 tab PO DAILY 07/21/24 08/13/24 acid 0.8 mg tablet Previous Rx's Medication Instructions Recorded CAM WALKER #1 ea 10/19/21 albuterol sulfate 2.5 mg/3 mL 2.5 mg (3 mL) inhalation Q6H 11/10/22 (0.083 %) solution for nebulization #1,500 mL budesonide 160 mcg-glycopyr 9 2 inh inhalation BID #10.7 grams 12/14/23 mcg-formot 4.8 mcg/actuation HFA inhaler (Breztri Aerosphere) losartan 50 mg tablet 50 mg PO DAILY #90 tabs 01/09/24 ipratropium 0.5 mg-albuterol 3 mg 3 ml inhalation Q6H PRN shortness 07/21/24 (2.5 mg base)/3 mL nebulization of breath or wheezing #180 mL soln prednisone 20 mg tablet 20 mg PO TID #15 tabs 07/21/24 Allergies Allergy/AdvReac Type Severity Reaction Status Date / Time cyclobenzaprine Allergy Unknown unknown Verified 08/13/24 09:54 [From Flexeril] lisinopril Allergy Unknown unknown Verified 08/13/24 09:54 Pirfenidone Allergy Unknown Uncoded 08/13/24 09:54 [facility] ED PFS: Medical History Ischemic cardiomyopathy Atherosclerotic heart disease of [place] coronary artery without angina pectoris CAD (coronary artery disease) COPD (chronic obstructive pulmonary disease) Hypertension Hyperlipidemia Osteoarthritis Prostatitis Depression Anxiety PTSD (post-traumatic stress disorder) Spinal stenosis Lumbar radiculopathy Peripheral neuropathy Surgical History H/O excision of mass (06/08/20) Left hand Status post colonoscopy (06/08/20) History of fusion of cervical spine Hx of circumcision Hx of arthroscopic knee surgery Family History Mother CAD (coronary artery disease) Cancer Diabetes Stroke Father Cancer Brother Cancer Chronic kidney disease (CKD) Diabetes Son Diabetes Family/Other Diabetes Other Hypertension Denies family history of Clotting disorder Dementia Suicide Anesthesia complication Bleeding disorder Lung disease Social History Smoking and tobacco/nicotine status: former use of tobacco/nicotine Quit status (tobacco/nicotine): has quit using Year quit tobacco: 1989 - .5 PPD x 40 Years Second hand smoke exposure: Yes Alcohol intake: never Substance/Drug Use: never Lives independently: Yes Household members: spouse Marital status: service: Yes Current occupational status: disabled Do you think of yourself as: Straight/Heterosexual Current gender identity: Male Physical Exam Const: GENERAL APPEARANCE: cooperative and ill appearing; not frail appearing HENMT: COMMON NORMALS: normocephalic, atraumatic and Normal external nose present HEAD & SCALP: normocephalic and atraumatic FACE & SINUS: normal facial exam and face symmetric NOSE: Normal external nose present Eye: COMMON NORMALS: Equal, round and reactive pupils present and EOMs intact bilaterally PUPIL: Yes Equal, round and reactive pupils present Neck/C-Spine: GENERAL: Yes trachea midline Chest: CHEST: Yes Symmetrical chest wall rise Resp: COMMON NORMALS: normal respiratory effort, No retractions, No use of accessory muscles and clear to auscultation bilaterally AUSCULTATION: clear to auscultation bilaterally Cardio: COMMON NORMALS: regular rate and regular rhythm RATE: regular rate RHYTHM: regular rhythm GI: COMMON NORMALS: Normal to inspection, nondistended, normoactive bowel sounds present Neuro: CARLENE COMA SCALE: document GCS findings [place] coma scale eye opening: Spontaneous Carl[place] coma scale verbal response: Orientated [place] coma scale motor response: Obey commands [place] coma scale total score: 15 SENSORY EXAM: Yes extremities (intact) Psych: COMMON NORMALS: speech normal SPEECH: Yes normal speech Skin: COMMON NORMALS: no rashes or lesions noted GENERAL SKIN EXAM: no rashes or lesions noted Course Vital Signs: Vital signs: Vital Signs Temperature 98.0 F 09/08/24 00:45 Pulse Rate 98 09/08/24 00:45 Respiratory Rate 22 H 09/08/24 00:45 Blood Pressure 112/71 09/08/24 00:45 Pulse Oximetry 95 09/08/24 00:45 Oxygen Delivery Me thod Nasal Cannula 09/08/24 01:10 Oxygen Flow Rate 5 09/08/24 00:03 MDM - Chest Pain Medical Decision Making 79-year-old male gentleman presenting with chest discomfort and shortness of breath. He has a history of COPD. He is hypoxic, more so than usual. He is on 5 L at this point maintaining a sat of 87 to 90%. He is mildly tachycardic. His chest x-ray is nonacute. Blood gas shows a pH of 7.41 with a PE O2 of 75 on 5 L. He is given breathing treatment and Solu-Medrol with minimal improvement. His troponins are normal at baseline and 2 hours. His BNP is not elevated. He will be observed. Hospitalist agrees and will see the patient. His EKG showed a new bundle branch block. It was shown to cardiology on the patient's arrival. Cardiology recommendations are to treat medically. He does not believe this is a STEMI equivalent. Troponins remained normal as above. Lab Data 09/08/24 02:09 09/08/24 02:09 Radiology Impressions Chest X-Ray 09/07/24 21:39 IMPRESSION: No acute findings. Chest CTA 09/07/24 23:27 IMPRESSION: 1. Negative exam for pulmonary embolus and aortic dissection. 2. Bilateral diffuse pulmonary fibrosis. 3. Atherosclerosis including coronary artery calcification. 4. Cardiomegaly. Laboratory Results WBC 12.89 10^3/uL (3.29-11.43) H 09/07/24 20:04 RBC 5.41 10^6/uL (3.85-5.65) 09/07/24 20:04 Hgb 14.00 g/dL (11.27-16.99) 09/07/24 20:04 Hct 45.6 % (37-53) 09/07/24 20:04 MCV 84.3 fl (82-101) 09/07/24 20:04 MCH 25.9 pg (27-33) L 09/07/24 20:04 MCHC 30.7 g/dL (30-55) 09/07/24 20:04 RDW 14.6 % (12.1-15.1) 09/07/24 20:04 Plt Count 221 10^3/cmm (157-399) 09/07/24 20:04 MPV 9.5 fL (7.4-10.4) 09/07/24 20:04 Neut % (Auto) 75.1 % 09/07/24 20:04 Lymph % (Auto) 10.6 % 09/07/24 20:04 [place] % (Auto) 11.2 % 09/07/24 20:04 Eos % (Auto) 1.9 % 09/07/24 20:04 Baso % (Auto) 0.6 % 09/07/24 20:04 Neut # (Auto) 9.67 10^3/uL (1.8-7.7) H 09/07/24 20:04 Lymph # (Auto) 1.4 10^3/uL (0.8-4.8) 09/07/24 20:04 Stan[place] # (Auto) 1.5 10^3/uL (0.2-0.9) H 09/07/24 20:04 Eos # (Auto) 0.2 10^3/uL (0.0-0.8) 09/07/24 20:04 Baso # (Auto) 0.1 10^3/uL (0.0-0.1) 09/07/24 20:04 Nucleated RBC % (auto) 0 % 09/07/24 20:04 Nucleated RBCs # 0.0 /100WBC 09/07/24 20:04 D-Dimer 0.79 ug/mLFEU (0-0.59) H 09/07/24 20:04 Specimen Type Arterial 09/07/24 22:08 Sample Site Brachial, left 09/07/24 22:08 ABG pH 7.41 (7.35-7.45) 09/07/24 22:08 ABG pCO2 36.7 mmHg (35-45) 09/07/24 22:08 ABG pO2 74.6 mmHg (80.0-100.0) L 09/07/24 22:08 ABG HCO3 23.3 mmol/L (22-26) 09/07/24 22:08 ABG Base Excess -0.9 mmol/L (-2.0-2.0) 09/07/24 22:08 Dharmesh Test N/a 09/07/24 22:08 Hematocrit 41.0 % (42-52) L 09/07/24 22:08 O2 Delivery Device Nc 09/07/24 22:08 O2 Liters/Min 4.5 % 09/07/24 22:08 Gem Setter ID Jdb 09/07/24 22:08 Sodium 140 mmol/L (136-145) 09/07/24 20:04 Potassium 4.4 mmol/L (3.5-5.1) 09/07/24 20:04 Chloride 105 mmol/L (98-107) 09/07/24 20:04 Carbon Dioxide 24 mmol/L (22-29) 09/07/24 20:04 Anion Gap 15.4 (5-19) 09/07/24 20:04 BUN 17 mg/dL (8-23) 09/07/24 20:04 Creatinine 1.0 mg/dL (0.7-1.2) 09/07/24 20:04 GFR Calculation Not Reportable 09/07/24 20:04 Glucose 111 mg/dL (65-115) 09/07/24 20:04 Calculated Osmolality 292 mOsm/kg (285-295) 09/07/24 20:04 Calcium 9.4 mg/dL (8.5-10.5) 09/07/24 20:04 Total Bilirubin 0.3 mg/dL (0.15-1.2) 09/07/24 20:04 AST 18 U/L (0-40) 09/07/24 20:04 ALT 15 U/L (0-41) 09/07/24 20:04 Alkaline Phosphatase 143 U/L (40-130) H 09/07/24 20:04 Troponin T Baseline 7 ng/L (0-15) 09/07/24 20:04 Troponin T 120 Minute 6.88 ng/L (0-15) 09/07/24 21:42 Delta Troponin T -0.12 ABS# (0-10) L 09/07/24 21:42 NT-Pro-B Natriuret Pep 78 pg/mL (0-450) 09/07/24 20:04 Total Protein 6.9 g/dL (6.6-8.7) 09/07/24 20:04 Albumin 4.0 g/dL (3.5-5.2) 09/07/24 20:04 Globulin 2.9 g/dL (1.3-4.6) 09/07/24 20:04 Procalcitonin 0.03 ng/mL (0-0.5) 09/07/24 22:04 Adenovirus (PCR) Not detected (NOT DETECT) 09/07/24 22:09 C. pneumoniae DNA (PCR) Not detected (NOT DETECT) 09/07/24 22:09 Coronavirus 229E (PCR) Not detected (NOT DETECT) 09/07/24 22:09 Human Metapneumovir PCR Not detected (NOT DETECT) 09/07/24 22:09 Influenza A (H1) PCR Not detected (NOT DETECT) 09/07/24 22:09 Influ A (H1/09) PCR Not detected (NOT DETECT) 09/07/24 22:09 Influenza A (H3) PCR Not detected (NOT DETECT) 09/07/24 22:09 Influenza Type A (PCR) Not detected (NOT DETECT) 09/07/24 22:09 Influenza Type B (PCR) Not detected (NOT DETECT) 09/07/24 22:09 M. pneumoniae (PCR) Not detected (NOT DETECT) 09/07/24 22:09 Parainfluenza 1 (PCR) Not detected (NOT DETECT) 09/07/24 22:09 Parainfluenza 2 (PCR) Not detected (NOT DETECT) 09/07/24 22:09 Parainfluenza 3 (PCR) Not detected (NOT DETECT) 09/07/24 22:09 Parainfluenza 4 (PCR) Not detected (NOT DETECT) 09/07/24 22:09 RSV Type A (PCR) Not detected (NOT DETECT) 09/07/24 22:09 RSV Type B (PCR) Not detected (NOT DETECT) 09/07/24 22:09 Entero/Rhino (PCR) Not detected (NOT DETECT) 09/07/24 22:09 SARS-CoV-2 (PCR) Not detected (NOT DETECT) 09/07/24 22:09 All radiology interpretation(s) finalized by discharge Discharge Plan Discharge Patient Disposition: Placed in Observation Admit Provider: Conchita Ordoñez 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
--- NOTE | 2024-09-07 21:39 | XRR_ITS ---
PROCEDURE INFORMATION: Exam: XR Chest Exam date and time: 09/07/2024 9:45 PM Age: 79 years old Clinical indication: Chest pressure; Patient HX: Chest pain; SOB; Hypoxia TECHNIQUE: Imaging protocol: Radiologic exam of the chest. Views: 1 view. COMPARISON: CR XR chest 1V portable [id number] 07/21/2024 3:10 PM FINDINGS: Lungs: Stable diffuse interstitial fibrosis. No consolidation. Pleural spaces: Unremarkable. No pleural effusion. No pneumothorax. Heart/Mediastinum: Unremarkable. No cardiomegaly. Bones/joints: C-spine fusion hardware. Curvature and degenerative changes of the thoracic spine. XR/XR chest 1V portable [id number] IMPRESSION: No acute findings.
[2024-09-07] MEDS: ipratropium-albuterol 3 mL Neb INHALATION (21:58)
[2024-09-07 21:59] VITALS: PULSE 111; RESP 12; O2SAT 91
[2024-09-07 22:05] VITALS: BP 108/80; PULSE 113; RESP 21; O2SAT 90
[2024-09-07] MEDS: methylPREDNISolone sod succ 125 mg/2 mL INJ IVP (22:07)
[2024-09-07 22:08] LABS: Troponin 5 2HR 6.88 ng/L (0-15)
[2024-09-07 22:10] LABS: Troponin 5 2HR Delta -0.12 ABS# (0-10)
--- NOTE | 2024-09-07 22:14 | ECG_ITS ---
[facility] Test Date: 2024-09-07 Pat Name: Krishna Hess Department: Room: Gender: Male Data Capture Specialist: : [id number] Requested By: Navid Olivera Order Number: [id number] Reading MD: Measurements Intervals [place] Rate: 113 P: 98 CT: 175 QRS: -16 QRSD: 148 T: 117 QT: 355 QTc: 488 Interpretive Statements SINUS TACHYCARDIA INTRAVENTRICULAR CONDUCTION DELAY [130+ ms QRS DURATION] INFERIOR MYOCARDIAL INFARCTION , POSSIBLY ACUTE [40+ ms Q WAVE AND/OR ST/T ABNORMALITY IN II/aVF] ACUTE MA [email or web address]
[2024-09-07 22:22] LABS: ABG PCO2 36.7 mmHg (35-45); ABG PH Result 7.41 (7.35-7.45); Base Excess ABG -0.9 mmol/L (-2.0-2.0); Blood Gas LPM 4.5 %; Blood Gas Operator Identificat JDB; Blood Gas Sample Site Brachial, left; Blood Gas Sample Type Arterial; HCO3 ABG 23.3 mmol/L (22-26); Oxygen Device NC; PO2 ABG 74.6 mmHg (80.0-100.0)
--- NOTE | 2024-09-07 23:08 | P.HP_ITS ---
Providers/Chief Complaint 2 Primary Care Provider: Gypsy Salcedo MD Chief Complaint: CP History of Present Illness Krishna Hess is a 79 year old male with a history of oxygen dependent interstitial pulmonary fibrosis, pulmonary function test not consistent with COPD, uses 2 L at baseline, uses ankle brace, no previous history of [place], presented with chief complaint of substernal chest discomfort along shortness of breath. Patient is stating that his symptoms started today around 5 PM, chest pain lasted for about 3 to 4 hours, he describing his pain as pressure-like sensation nonradiating, not associated with nausea or vomiting or diaphoresis but it was associated with shortness of breath. In the ER he was requiring 5 L of oxygen, CTA chest, venous Doppler requested for high D-dimer. EKG showing new onset left bundle branch block which was reviewed with the ER. Dr. Cruz has discussed his EKG with Dr. Portillo, troponin are not significantly elevated, hospitalist service was requested admit the patient for hypoxia and rule out coronary ischemia. Patient is stating that next week he had appointment for low-dose CT scan, he is also telling me that his ejection fraction is 50% which is a decline from previous ejection fraction of 62% Review of records reveals The patient has a diagnosis of ischemic cardiomyopathy? His ejection fraction was 45%. A cardiac catheterization in 2018 did not reveal significant coronary artery disease that would require revascularization.? His echocardiogram in December 2020 revealed an ejection fraction of 62% without any wall motion abnormalities. Recent echo showed EF of 50% Patient was following up with drew Egan Review of Systems 2 Const: Denies: fever(s) Eyes: Denies: change in vision ENMT: Denies: throat pain Card: Reports: chest pain Resp: Reports: dyspnea GI: Denies: abdominal pain : Denies: flank pain Musc: Reports: back pain Medications/Allergies Home Medications Medication Instructions Recorded Confirmed Last Taken Type aspirin 81 mg tablet,delayed 81 mg PO DAILY 11/12/19 08/13/24 07/21/24 History release (Adult Low Dose Aspirin) finasteride 5 mg tablet 5 mg PO DAILY 11/12/19 08/13/24 07/21/24 History metoprolol tartrate 50 mg tablet 25 mg PO BID 11/12/19 08/13/24 07/21/24 History pantoprazole 40 mg tablet,delayed 40 mg PO QAM 11/12/19 08/13/24 07/21/24 History release CAM WALKER #1 ea 10/19/21 08/13/24 Unknown Rx clopidogrel 75 mg tablet 75 mg PO DAILY 05/24/22 08/13/24 07/21/24 History bupropion HCl 150 mg tablet,12 hr 150 mg PO QAM 06/01/22 08/13/24 07/21/24 History sustained-release gabapentin 100 mg capsule See Rx Instructions .Route .COMPLEX 06/01/22 08/13/24 07/21/24 History albuterol sulfate 2.5 mg/3 mL 2.5 mg (3 mL) inhalation Q6H 11/10/22 08/13/24 07/21/24 Rx (0.083 %) solution for nebulization #1,500 mL nitroglycerin 0.4 mg sublingual 0.4 mg sublingual Q5M PRN Chest 06/14/23 08/13/24 Unknown History tablet Pain ferrous sulfate 325 mg (65 mg 325 mg PO TID 08/10/23 08/13/24 07/21/24 History iron) tablet budesonide 160 mcg-glycopyr 9 2 inh inhalation BID #10.7 grams 12/14/23 08/13/24 07/21/24 Rx mcg-formot 4.8 mcg/actuation HFA inhaler (Breztri Aerosphere) losartan 50 mg tablet 50 mg PO DAILY #90 tabs 01/09/24 08/13/24 07/21/24 Rx cholecalciferol (vitamin D3) 50 50 mcg PO DAILY 04/10/24 08/13/24 07/21/24 History mcg (2,000 unit) capsule fluticasone propionate 50 1 spray intranasal DAILY 04/10/24 08/13/24 07/21/24 History mcg/actuation nasal spray,suspension (Allergy Relief (fluticasone)) albuterol sulfate 90 mcg/actuation 2 puff inhalation QID PRN 07/21/24 08/13/24 Unknown History aerosol inhaler Shortness Of Breath atorvastatin 10 mg tablet 10 mg PO QPM 07/21/24 08/13/24 07/20/24 History benzonatate 100 mg capsule 100 mg PO BID PRN Cough 07/21/24 08/13/24 Unknown History cetirizine 10 mg tablet 10 mg PO DAILY 07/21/24 08/13/24 07/21/24 History cholecalciferol (vitamin D3) 50 100 mcg PO DAILY 07/21/24 08/13/24 07/21/24 History mcg (2,000 unit) tablet (Vitamin D3) dextran 70-hypromellose eye drops 1 drp ophthalmic (eye) Q4H PRN Dry 07/21/24 08/13/24 07/21/24 History in a dropperette (Artificial Tears Eyes (PF) drops in a dropperette) guaifenesin 100 mg/5 mL oral 200 mg PO TID cough 07/21/24 08/13/24 07/21/24 History liquid (Wal-Tussin) ipratropium 0.5 mg-albuterol 3 mg 3 ml inhalation Q6H PRN shortness 07/21/24 08/13/24 Unknown Rx (2.5 mg base)/3 mL nebulization of breath or wheezing #180 mL soln ketoconazole 2 % shampoo See Rx Instructions .Route .COMPLEX 07/21/24 08/13/24 Unknown History mv-mn-folic 200 mcg-vit K 15 1 cap PO BID 07/21/24 08/13/24 07/21/24 History mcg-lutein 5 mg-zeaxanthin 1 mg capsule (PreserVision AREDS 2 Plus Multivit) prazosin 2 mg capsule 2 mg PO QPM 07/21/24 08/13/24 07/20/24 History prednisone 20 mg tablet 20 mg PO TID #15 tabs 07/21/24 08/13/24 Unknown Rx quetiapine 100 mg tablet 50 mg PO BEDTIME 07/21/24 08/13/24 07/20/24 History vitamin B complex-vitamin C-folic 1 tab PO DAILY 07/21/24 08/13/24 07/21/24 History acid 0.8 mg tablet Allergies Allergy/AdvReac Type Severity Reaction Status Date / Time cyclobenzaprine Allergy Unknown unknown Verified 08/13/24 09:54 [From Flexeril] lisinopril Allergy Unknown unknown Verified 08/13/24 09:54 Pirfenidone Allergy Unknown Uncoded 08/13/24 09:54 PFSH Acute 2 PFSH: Medical History Ischemic cardiomyopathy Atherosclerotic heart disease of [place] coronary artery without angina pectoris CAD (coronary artery disease) COPD (chronic obstructive pulmonary disease) Hypertension Hyperlipidemia Osteoarthritis Prostatitis Depression Anxiety PTSD (post-traumatic stress disorder) Spinal stenosis Lumbar radiculopathy Peripheral neuropathy Surgical History H/O excision of mass (06/08/20) Left hand Status post colonoscopy (06/08/20) History of fusion of cervical spine Hx of circumcision Hx of arthroscopic knee surgery Family History Mother CAD (coronary artery disease) Cancer Diabetes Stroke Father Cancer Brother Cancer Chronic kidney disease (CKD) Diabetes Son Diabetes Family/Other Diabetes Other Hypertension Denies family history of Clotting disorder Dementia Suicide Anesthesia complication Bleeding disorder Lung disease Social History Smoking and tobacco/nicotine status: former use of tobacco/nicotine Quit status (tobacco/nicotine): has quit using Year quit tobacco: 1989 - .5 PPD x 40 Years Second hand smoke exposure: Yes Alcohol intake: never Substance/Drug Use: never Lives independently: Yes Household members: spouse Marital status: service: Yes Current occupational status: disabled Do you think of yourself as: Straight/Heterosexual Current gender identity: Male Vitals/I&O/Wt Last Vital Signs Temp 98.7 F 09/07/24 19:54 Pulse 113 H 09/07/24 22:05 Resp 21 H 09/07/24 22:05 BP 108/80 09/07/24 22:05 Pulse Ox 90 09/07/24 22:05 O2 Del Method Nasal Cannula 09/07/24 22:05 O2 Flow Rate 5 09/07/24 22:05 Weight last 48 hrs Weight 95.254 kg Physical Exam 2 Narrative: Patient currently on 5 L nasal cannula No audible stridor or wheezing Awake and alert No sign of heart failure GCS 15 Distended abdomen Nontender abdomen Pleasant and cooperative Nonfocal neuroexam Patient waiting ankle braces Lower extremity no edema S1, S2 Data 09/07/24 20:04 09/07/24 20:04 A&P Assessment and plan (1) Hypertension: Qualifiers: Hypertension type: essential hypertension Qualified Code(s): I10 - Essential (primary) hypertension (2) COPD (chronic obstructive pulmonary disease): Qualifiers: COPD type: emphysema Emphysema type: unspecified Qualified Code(s): J 43.9 - Emphysema, unspecified (3) Shortness of breath: (4) Pulmonary fibrosis: (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 Ribera, patient was chest pain free at that time, troponins were not remarkable Patient will need coronary ischemic workup He also has a drop in ejection fraction to 50% down from 62%, please note 2019 his ejection fraction was noted to be around 45% when he had cardiac cath which showed mild coronary disease, no stents were placed Patient will need cardiology consultation for ischemic workup Idiopathic pulmonary fibrosis Pulmonary function test not consistent with COPD Patient uses 2 L and sometimes up to 4 L at baseline Currently requiring 5 L I will put patient on inhaled steroids No significant wheezing I would avoid IV steroids at this point Ex-smoker Patient uses ankle braces bilateral Full code Cardiac diet Admit to MedSur Add DuoNeb treatment No need of antibiotics no signs of pneumonia DVT prophylaxis covered with Lovenox Attestations 2 Medical Necessity Statement*: Anticipating more than 2 midnights Diagnoses Essential hypertension I10 Hypertension type: essential hypertension Pulmonary emphysema, unspecified emphysema type J43.9 COPD type: emphysema Emphysema type: unspecified Shortness of breath R06.02 Pulmonary fibrosis J84.10 Combined pulmonary fibrosis and emphysema (CPFE) J43.9; J84.10 Acute hypoxemic respiratory failure J96.01 Bronchiectasis without complication J47.9 Bronchiectasis type: uncomplicated New onset left bundle branch block (LBBB) I44.7
[2024-09-07 23:18] LABS: D Dimer 0.79 ug/mLFEU (0-0.59)
--- NOTE | 2024-09-07 23:27 | CTR_ITS ---
PROCEDURE INFORMATION: Exam: CTA Chest With Contrast Exam date and time: 09/07/2024 11:42 PM Age: 79 years old Clinical indication: Abnormal findings; Abnormal diagnostic tests; Elevated d-dimer; Cough and shortness of breath; Prior surgery; Surgery date: 6+ months; Surgery type: Cervical fusion; Patient HX: Cough with SOB and hypoxia. Dimer 0.79. TECHNIQUE: Imaging protocol: Computed tomographic angiography of the chest with contrast. Exam focused on the arteries. 3D rendering (Not supervised by radiologist): MIP and/or 3D reconstructed images were created by the technologist. Radiation optimization: All CT scans at this facility use at least one of these dose optimization techniques: automated exposure control; mA and/or kV adjustment per patient size (includes targeted exams where dose is matched to clinical indication); or iterative reconstruction. Contrast material: OMNI 350; Contrast volume: 59 ml; Contrast route: INTRAVENOUS (IV); COMPARISON: CT lung screening [id number] 08/17/2023 10:30 AM RADIATION DOSE METRICS: Total DLP (mGy-cm): 501.74 FINDINGS: Pulmonary arteries: Normal. No pulmonary emboli. Aorta: Calcific plaque involves the thoracic aorta and coronary arteries. The thoracic aorta is free of aneurysm and dissection. Lungs: Bilateral diffuse fibrosis present. No acute lung opacities. Areas of mild traction bronchiectasis noted. Pleural spaces: Unremarkable. No pneumothorax. No pleural effusion. Heart: The heart is mildly enlarged. Lymph nodes: Stable subcarinal and hilar lymph nodes measuring up to 11 mm in short axis, likely reactive. Bones/joints: Multilevel degenerative changes involve the spine. Soft tissues: Unremarkable. CT/CT angio chest PE protcl [id number] IMPRESSION: 1. Negative exam for pulmonary embolus and aortic dissection. 2. Bilateral diffuse pulmonary fibrosis. 3. Atherosclerosis including coronary artery calcification. 4. Cardiomegaly.
[2024-09-07] MEDS: iohexol 350 mg/mL 500 mL Btl (per mL) IV (23:45)
[2024-09-07 23:48] LABS: Procalcitonin 0.03 ng/mL (0-0.5)
[2024-09-08] VITALS (11 sets, daily range): BP systolic 102–124; BP diastolic 64–79; PULSE 74–100; RESP 16–22; TEMP 36.3–36.7; O2SAT 93–96
[2024-09-08 00:05] LABS: Adenovirus Not Detected (NOT DETECT); Chlamydia Pneumoniae Not Detected (NOT DETECT); Coronavirus 229E,HKU1,NL63,OC4 Not Detected (NOT DETECT); Human Metapneumovirus Not Detected (NOT DETECT); Human Rhinovirus/Enterovirus Not Detected (NOT DETECT); Influenza A Not Detected (NOT DETECT); Influenza A H1 Not Detected (NOT DETECT); Influenza A H1-2009 Not Detected (NOT DETECT); Influenza A H3 Not Detected (NOT DETECT); Influenza B Not Detected (NOT DETECT); Mycoplasma Pneumoniae Not Detected (NOT DETECT); Parainfluenza Virus Type 1 Not Detected (NOT DETECT); Parainfluenza Virus Type 2 Not Detected (NOT DETECT); Parainfluenza Virus Type 3 Not Detected (NOT DETECT); Parainfluenza Virus Type 4 Not Detected (NOT DETECT); Respiratory Syncytial Virus A Not Detected (NOT DETECT); Respiratory Syncytial Virus B Not Detected (NOT DETECT); SARS-COV-2 Not Detected (NOT DETECT)
[2024-09-08] MEDS: ondansetron 2 mg/ML SDV 2 mL 4 MG IVP (00:12)
[2024-09-08] MEDS: morphine 4 mg/mL SDV 1 mL IVP (00:12)
[2024-09-08] MEDS: enoxaparin 100 mg/mL Syringe SUBCUT (01:07)
--- NOTE | 2024-09-08 01:36 | ECG_ITS ---
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 Measurements Intervals [place] Rate: 93 P: 31 ND: 201 QRS: -14 QRSD: 92 T: 21 QT: 356 QTc: 443 Interpretive Statements SINUS RHYTHM VOLTAGE CRITERIA FOR LVH [MEETS CRITERIA IN ONE OF: R(aVL), S(V1), R(V5), R(V5/V6)+S(V1)] Compared to ECG 09/07/2024 22:14:19 Left ventricular hypertrophy now present Sinus tachycardia no longer present Intraventricular conduction delay no longer present Myocardial infarct finding no longer present Electronically Signed On 09-10-2024 23:48:26 SCIENTIFIC SYSTEMS ANALYST by Alberta Blackwell M.D. [email or web address]
--- NOTE | 2024-09-08 01:38 | ECG_ITS ---
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
[2024-09-08 02:27] LABS: Basophils # 0.1 10^3/uL (0.0-0.1); Basophils % 0.4 %; Eosinophils % 0.2 %; Hematocrit 41.1 % (37-53); Lymphocytes # 0.7 10^3/uL (0.8-4.8); Lymphocytes % 5.4 %; Mean Corpuscular HGB Conc 30.9 g/dL (30-55); Mean Corpuscular Hemoglobin 25.3 pg (27-33); Mean Corpuscular Volume 81.9 fl (82-101); Mean Platelet Volume 9.7 fL (7.4-10.4); Monocytes # 0.6 10^3/uL (0.2-0.9); Monocytes % 4.6 %; Neutrophils # 10.91 10^3/uL (1.8-7.7); Neutrophils % 88.8 %; Nucleated Red Blood Cells % 0 %; Platelet Count 176 10^3/cmm (157-399); Red Blood Count 5.02 10^6/uL (3.85-5.65); Red Cell Distribution Width 14.5 % (12.1-15.1); White Blood Count 12.27 10^3/uL (3.29-11.43)
[2024-09-08 02:42] LABS: Anion Gap 17.3 (5-19); Blood Urea Nitrogen 18 mg/dL (8-23); C Reactive Protein 23.9 mg/L (0.0-4.9); Calcium 8.7 mg/dL (8.5-10.5); Carbon Dioxide 22 mmol/L (22-29); Chloride 104 mmol/L (98-107); Creatinine Clr Calc Pharmacy 85.1871; Glucose 148 mg/dL (65-115); Magnesium 1.8 mg/dL (1.7-2.3); Osmolality Calculated 293 mOsm/kg (285-295); Potassium 4.3 mmol/L (3.5-5.1); Sodium 139 mmol/L (136-145)
[2024-09-08] MEDS: budesonide 0.5 mg/2 mL Neb INHALATION ×2 (08:56→21:13)
[2024-09-08] MEDS: ipratropium-albuterol 3 mL Neb INHALATION ×2 (08:56→21:13)
[2024-09-08] MEDS: finasteride 5 mg Tablet PO (09:19)
[2024-09-08] MEDS: aspirin 81 mg EC Tablet PO (09:19)
[2024-09-08] MEDS: metoprolol tartrate 50 mg Tablet 25 MG PO ×2 (09:20→17:24)
[2024-09-08] MEDS: sennosides-docusate Tablet 1 TAB PO (09:21)
[2024-09-08] MEDS: clopidogrel 75 mg Tablet PO (09:21)
[2024-09-08] MEDS: losartan 50 mg Tablet 25 MG PO (09:21)
[2024-09-08] MEDS: guaiFENesin 100 mg/5 mL UDC 10 mL 200 MG PO ×3 (09:22→20:08)
--- NOTE | 2024-09-08 14:00 | PM.PN ---
Subjective Subjective: Reports he had some chest pain earlier this morning which is currently resolved. Medications: Reviewed: Yes Vitals/I&O/Wt Last Vital Signs Temp 97.4 F L 09/08/24 16:00 Pulse 83 09/08/24 16:00 Resp 18 09/08/24 16:00 BP 124/79 09/08/24 16:00 Pulse Ox 93 09/08/24 16:00 O2 Del Method Nasal Cannula 09/08/24 16:00 O2 Flow Rate 4 09/08/24 08:59 09/08/24 09/08/24 09/08/24 06:59 14:59 22:59 Output Total 325 / 325 Balance -325 / -325 Weight last 48 hrs Weight 74.389 kg Weight 95.254 kg Physical Exam Narrative: General: No acute distress, AO x3 HEENT: PERRLA, pupils bilaterally equal and reactive, pallors not present Chest: Normal vesicular breath sounds, no added sounds, equal good air entry bilaterally CVS: S1-S2 regular, no murmurs, no tachycardia, no gallops, no rubs Abdomen: Soft, nontender, no organomegaly, bowel sounds present Neuro: No focal deficits, no facial deformity, AO x3, power 5/5 in all limbs Data 09/08/24 02:09 09/08/24 02:09 A&P Assessment and plan (1) Hypertension: Qualifiers: Hypertension type: essential hypertension Qualified Code(s): I10 - Essential (primary) hypertension (2) COPD (chronic obstructive pulmonary disease): Qualifiers: COPD type: emphysema Emphysema type: unspecified Qualified Code(s): J43.9 - Emphysema, unspecified (3) Shortness of breath: (4) Pulmonary fibrosis: (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 Ribera, patient was chest pain free at that time, troponins were not remarkable Patient will need coronary ischemic workup He also has a drop in ejection fraction to 50% down from 62%, please note 2019 his ejection fraction was noted to be around 45% when he had cardiac cath which showed mild coronary disease, no stents were placed Patient will need cardiology consultation for ischemic workup Idiopathic pulmonary fibrosis Pulmonary function test not consistent with COPD Patient uses 2 L and sometimes up to 4 L at baseline Currently requiring 5 L I will put patient on inhaled steroids No significant wheezing I would avoid IV steroids at this point Ex-smoker Patient uses ankle braces bilateral Full code Cardiac diet Admit to [facility] Add DuoNeb treatment No need of antibiotics no signs of pneumonia DVT prophylaxis covered with Lovenox September 08, 2024. CTA of the chest negative for PE. Lower extremity Doppler negative for DVT. Awaiting cardiology recommendations with regards to possible angiogram. Had some chest pain this morning which is currently resolved. Attestations Medical Necessity Statement*: Awaiting cardiology assessment, possible angiogram. Coding Level of Care Code Acute Code for [facility] Fwd Diagnoses Essential hypertension I10 Hypertension type: essential hypertension Pulmonary emphysema, unspecified emphysema type J43.9 COPD type: emphysema Emphysema type: unspecified Shortness of breath R06.02 Pulmonary fibrosis J84.10 Combined pulmonary fibrosis and emphysema (CPFE) J43.9; J84.10 Acute hypoxemic respiratory failure J96.01 Bronchiectasis without complication J47.9 Bronchiectasis type: uncomplicated New onset left bundle branch block (LBBB) I44.7
[2024-09-08] MEDS: enoxaparin 80 mg/0.8 mL Syringe 70 MG SUBCUT (14:04)
--- NOTE | 2024-09-08 15:06 | P.CONIM_ITS ---
Providers/Reason For Consult 2 Consulting Physician/Specialty*: Conchita Portillo MD Reason for Consult*: Dr. Ordoñez Attending Physician: Carol Conroy MD Primary Care Provider: Gypsy Salcedo MD History of Present Illness History of Present Illness Krishna Hess is a 79 year old male past medical history significant for COPD interstitial lung disease mildly reduced left ventricular systolic function 50% who denies any previous invasive cardiac workup however it is mentioned in 2019 patient may have coronary angiogram and he was told that he does not have obstructive coronary artery disease presented with worsening of shortness of breath chest pain on [id number] exertion. According to him chest pain has increased in frequency and duration no it is happening at rest therefore he decided to come to the ER. Patient is not interested in stress test and he thinks that his symptoms are bothersome and would like to obtain definitive answer. He thinks that for the past 6 months symptoms such as shortness of breath and chest pain has worsened and not to the extent that little bit of effort brings it on. He denies PND orthopnea presyncope syncope. Twelve-lead EKG was suggestive of left bundle branch block which is new, since patient currently is chest pain-free without troponin elevation there is no need of urgent invasive strategy. Review of Systems 2 Const: Denies: fever(s) Eyes: Denies: change in vision ENMT: Denies: throat pain Card: Reports: chest pain Resp: Reports: dyspnea GI: Denies: abdominal pain : Denies: flank pain Musc: Reports: back pain All/Imm: Denies: acute wheezing Medications/Allergies Home Medications Medication Instructions Recorded Confirmed Last Taken Type aspirin 81 mg tablet,delayed 81 mg PO DAILY 11/12/19 09/08/24 09/07/24 History release (Adult Low Dose Aspirin) finasteride 5 mg tablet 5 mg PO DAILY 11/12/19 09/08/24 09/07/24 History metoprolol tartrate 50 mg tablet 25 mg PO BID 11/12/19 09/08/24 09/07/24 History pantoprazole 40 mg tablet,delayed 40 mg PO QAM 11/12/19 09/08/24 09/07/24 History release CAM WALKER #1 ea 10/19/21 09/08/24 Unknown Rx clopidogrel 75 mg tablet 75 mg PO DAILY 05/24/22 09/08/2409/07/25 History bupropion HCl 150 mg tablet,12 hr 150 mg PO QAM 06/01/22 09/08/24 09/07/24 History sustained-release gabapentin 100 mg capsule See Rx Instructions .Route .COMPLEX 06/01/22 09/08/24 09/07/24 History albuterol sulfate 2.5 mg/3 mL 2.5 mg (3 mL) inhalation Q6H 11/10/22 09/08/24 07/21/24 Rx (0.083 %) solution for nebulization #1,500 mL nitroglycerin 0.4 mg sublingual 0.4 mg sublingual Q5M PRN Chest 06/14/23 09/08/24 09/07/24 History tablet Pain ferrous sulfate 325 mg (65 mg 325 mg PO TID 08/10/23 09/08/24 07/21/24 History iron) tablet budesonide 160 mcg-glycopyr 9 2 inh inhalation BID #10.7 grams 12/14/23 09/08/24 07/21/24 Rx mcg-formot 4.8 mcg/actuation HFA inhaler (Breztri Aerosphere) losartan 50 mg tablet 50 mg PO DAILY #90 tabs 01/09/24 09/08/24 09/07/24 Rx fluticasone propionate 50 1 spray intranasal DAILY 04/10/24 09/08/24 09/06/24 History mcg/actuation nasal spray,suspension (Allergy Relief (fluticasone)) albuterol sulfate 90 mcg/actuation 2 puff inhalation QID PRN 07/21/24 09/08/24 Unknown History aerosol inhaler Shortness Of Breath atorvastatin 10 mg tablet 10 mg PO QPM 07/21/24 09/08/24 09/06/24 History benzonatate 100 mg capsule 100 mg PO BID PRN Cough 07/21/24 09/08/24 Unknown History cetirizine 10 mg tablet 10 mg PO DAILY 07/21/24 09/08/24 07/21/24 History cholecalciferol (vitamin D3) 50 100 mcg PO DAILY 07/21/24 09/08/24 07/21/24 History mcg (2,000 unit) tablet (Vitamin D3) dextran 70-hypromellose eye drops 1 drp ophthalmic (eye) Q4H PRN Dry 07/21/24 09/08/24 07/21/24 History in a dropperette (Artificial Tears Eyes (PF) drops in a dropperette) guaifenesin 100 mg/5 mL oral 200 mg PO TID cough 07/21/24 09/08/24 07/21/24 History liquid (Wal-Tussin) ipratropium 0.5 mg-albuterol 3 mg 3 ml inhalation Q6H PRN shortness 07/21/24 09/08/24 Unknown Rx (2.5 mg base)/3 mL nebulization of breath or wheezing #180 mL soln ketoconazole 2 % shampoo See Rx Instructions .Route .COMPLEX 07/21/24 09/08/24 Unknown History mv-mn-folic 200 mcg-vit K 15 1 cap PO BID 07/21/24 09/08/24 09/07/24 History mcg-lutein 5 mg-zeaxanthin 1 mg capsule (PreserVision AREDS 2 Plus Multivit) prazosin 2 mg capsule 2 mg PO QPM 07/21/24 09/08/24 09/06/24 History quetiapine 100 mg tablet 50 mg PO BEDTIME 07/21/24 09/08/24 09/06/24 History vitamin B complex-vitamin C-folic 1 tab PO DAILY 07/21/24 09/08/24 07/21/24 History acid 0.8 mg tablet Allergies Allergy/AdvReac Type Severity Reaction Status Date / Time cyclobenzaprine Allergy Unknown unknown Verified 08/13/24 09:54 [From Flexeril] lisinopril Allergy Unknown unknown Verified 08/13/24 09:54 Pirfenidone Allergy Unknown Uncoded 08/13/24 09:54 Current Medications Generic Name Dose Route Start Last Admin Trade Name Freq PRN Reason Stop Dose Admin Albuterol/Ipratropium 3 ml 09/08/24 00:35 09/08/24 08:56 Ipratropium-Albuterol 3 Ml Neb INHALATION 3 ml Q6H PRN Administration SHORTNESS OF BREATH Aspirin 81 mg 09/08/24 09:00 09/08/24 09:19 Aspirin 81 Mg Ec Tablet PO 81 mg DAILY KATLYN Administration Budesonide 0.5 mg 09/08/24 08:00 09/08/24 08:56 Budesonide 0.5 Mg/2 Ml Neb INHALATION 0.5 mg BID.RESPIRATORY KATLYN Administration Clopidogrel Bisulfate 75 mg 09/08/24 09:00 09/08/24 09:21 Clopidogrel 75 Mg Tablet PO 75 mg DAILY KATLYN Administration Enoxaparin Sodium 70 mg 09/08/24 13:30 09/08/24 14:04 Enoxaparin 80 Mg/0.8 Ml Syringe SUBCUT 70 mg Q12H KATLYN Administration Finasteride 5 mg 09/08/24 09:00 09/08/24 09:19 Finasteride 5 Mg Tablet PO 5 mg DAILY KATLYN Administration Guaifenesin 200 mg 09/08/24 09:00 09/08/24 14:04 Guaifenesin 100 Mg/5 Ml Udc 10 Ml PO 200 mg TID KATLYN Administration Losartan Potassium 25 mg 09/08/24 09:00 09/08/24 09:21 Losartan 50 Mg Tablet PO 25 mg DAILY KATLYN Administration Metoprolol Tartrate 25 mg 09/08/24 09:00 09/08/24 09:20 Metoprolol Tartrate 50 Mg Tablet PO 25 mg BID KATLYN Administration Senna/Docusate Sodium 1 tab 09/08/24 09:00 09/08/24 09:21 Sennosides-Docusate Tablet PO 1 tab DAILY KATLYN Administration PFSH Acute 2 PFSH: Medical History Ischemic cardiomyopathy Atherosclerotic heart disease of [place] coronary artery without angina pectoris CAD (coronary artery disease) COPD (chronic obstructive pulmonary disease) Hypertension Hyperlipidemia Osteoarthritis Prostatitis Depression Anxiety PTSD (post-traumatic stress disorder) Spinal stenosis Lumbar radiculopathy Peripheral neuropathy Surgical History H/O excision of mass (06/08/20) Left hand Status post colonoscopy (06/08/20) History of fusion of cervical spine Hx of circumcision Hx of arthroscopic knee surgery Family History Mother CAD (coronary artery disease) Cancer Diabetes Stroke Father Cancer Brother Cancer Chronic kidney disease (CKD) Diabetes Son Diabetes Family/Other Diabetes Other Hypertension Denies family history of Clotting disorder Dementia Suicide Anesthesia complication Bleeding disorder Lung disease Social History Smoking and tobacco/nicotine status: former use of tobacco/nicotine Quit status (tobacco/nicotine): has quit using Year quit tobacco: 1989 - 1.5 PPD x 40 Years Second hand smoke exposure: Yes Alcohol intake: never Substance/Drug Use: never Lives independently: Yes Household members: spouse Marital status: service: Yes Current occupational status: disabled Do you think of yourself as: Straight/Heterosexual Current gender identity: Male Dietary Habits: Current diet type/program: regular Caffeine: Yes Vitals/I&O/Wt Last Vital Signs Temp 97.5 F L 09/08/24 11:50 Pulse 78 09/08/24 11:50 Resp 16 09/08/24 08:59 BP 102/64 09/08/24 11:50 Pulse Ox 93 09/08/24 11:50 O2 Del Method Nasal Cannula 09/08/24 11:50 O2 Flow Rate 4 09/08/24 08:59 09/08/24 09/08/24 09/08/24 06:59 14:59 22:59 Output Total 325 / 325 Balance -325 / -325 Weight last 48 hrs Weight 164 lb Weight 210 lb Physical Exam 2 Const: OTHER: GENERAL: Patient is alert, awake and oriented x3. HEART: Regular S1 and S2. No murmur, rub or gallop. LUNGS: Mild inspiratory crackle bilaterally. CENTRAL NERVOUS SYSTEM: Grossly nonfocal. EXTREMITIES: Lower extremities with out edema bilaterally. Data 09/08/24 02:09 09/08/24 02:09 A&P Assessment and plan (1) New onset left bundle branch block (LBBB): New onset of left bundle branch block could be multifactorial including conduction delay/problem however cannot rule out recent acute coronary syndrome, patient is high risk for ACS, he continues to have chest pain on of basis for the past 6-month and now it has increased in frequency duration. For now he has been ruled out for acute coronary syndrome with serial cardiac markers, given his risk factor high profile for possible ACS abnormal EKG and chest pain we will give suspicion of unstable angina therefore would like to proceed with left heart cath in the morning. Continue aspirin statin add beta-susannah if patient has any more chest pain may can add heparin drip. Patient will be n.p.o. overnight for left heart cath in the morning (2) Pulmonary fibrosis: Continue treatment as suggested, continue oxygenation (3) Chest pain: As defined above chest pain is suspicious for unstable angina therefore we will proceed with left heart cath in the morning. Patient has been explained all risk-benefit and alternative for the procedure he would like to proceed with it Consult Attestations 2 Medical Necessity Statement: I am expecting his stay to cross more than 2 midnights Coding Level of Care Code Acute Code for [facility] Fwd Diagnoses New onset left bundle branch block (LBBB) I44.7 Pulmonary fibrosis J84.10 Chest pain R07.9
--- NOTE | 2024-09-08 23:27 | USR_ITS ---
PROCEDURE INFORMATION: Exam: US Duplex Lower Extremity Veins, Bilateral Exam date and time: 09/08/2024 8:54 AM Age: 79 years old Clinical indication: Swelling (edema) of limb; Lower extremity, bilateral; Additional info: [place] TECHNIQUE: Imaging protocol: Real-time duplex ultrasound of the bilateral extremities with 2-D lester scale, color Doppler flow and spectral waveform analysis including responses to compression and other maneuvers (when performed) with image documentation. Complete exam focused on the lower extremity veins. COMPARISON: CT abdomen pelvis w con* [id number] 10/08/2021 3:59 PM FINDINGS: Right deep veins: Unremarkable. The common femoral, femoral, proximal profunda femoral and popliteal veins are patent without thrombus. Normal Doppler waveforms. Normal compressibility and/or augmentation response. Left deep veins: Unremarkable. The common femoral, femoral, proximal profunda femoral and popliteal veins are patent without thrombus. Normal Doppler waveforms. Normal compressibility and/or augmentation response. Superficial veins: Greater saphenous veins at the saphenofemoral junctions are patent bilaterally without thrombus. Soft tissues: Unremarkable. US/CV venous duplex [facility] [id number] IMPRESSION: No evidence of deep vein thrombosis.
[2024-09-09] VITALS (24 sets, daily range): BP systolic 107–124; BP diastolic 62–77; PULSE 63–84; RESP 12–20; TEMP 36.3–36.4; O2SAT 92–98
[2024-09-09] MEDS: enoxaparin 80 mg/0.8 mL Syringe 70 MG SUBCUT (00:47)
[2024-09-09] MEDS: sodium chloride 0.9% 1,000 ML 50 ML IV (05:03)
--- NOTE | 2024-09-09 06:01 | XACV_ITS ---
Exam Room: [facility] Ht: 173 cm Wt: 68 kg BSA: 1.82 m2 Gender: Male : 1945 Any Known Allergies: Other Exam Priority: Routine Procedure(s): Procedure Description: Diagnostic procedure Procedure Description: Left Heart Catheterization Procedure Description: Left ventriculography Procedure Description: Coronary Angiography Lindsey GARCIA; Diagnostic Cath Status: Elective Diagnostic Findings * Left Main has no disease. * Left Anterior Descending has no disease. * Circumflex has no disease. * Mid Right Coronary Artery: mild 40% stenosis, YUDITH: 3 flow. * Coronary angiography shows right dominance. Conclusions 1. There is mild coronary artery disease with one vessel disease. 2. Normal left ventricular systolic function. Ejection fraction of 65%. 3. Left main, LAD, left circumflex has luminal irregularity without significant stenosis. Mid RCA has 30 to 40% stenosis which is not significant. LAD was noted to have sluggish flow possible due to endothelial dysfunction given IC nitroglycerin improve the flow immediately.. 4. Indication: Chest pain with worsening of shortness of breath suspect unstable angina.. Recommendations * Continue current medical management and risk factor modification. * 1-Return to inpatient for close monitoring and routine cath care 2-Risk factor modification for secondary prevention 3-Statin and aspirin 81 mg life-long, if tolerated 4-long-term nitroglycerin isosorbide mononitrate 30 mg once a day and 0.4 mg of sublingual nitroglycerin as needed basis for endothelial dysfunction. Lifestyle modification 5-Continue optimal medical management 6-Follow up with Dr. Portillo in four weeks and your primary care in 10 days. Diagnostic RX Recommendation: medical therapy and/or counseling Ventriculography Ejection Fraction: 65.0 % Pressures Phase:Rest AO : 108 / 69 ( 86 ) @ 7:53:00 AM 101 / 59 ( 76 ) @ 7:56:00 AM 176 / 101 ( 135 ) @ 7:58:00 AM 119 / 70 ( 90 ) @ 8:09:00 AM 119 / 69 ( 90 ) @ 8:09:00 AM LV : 124 / 8 / 21 @ 8:07:00 AM 118 / 6 / 22 @ 8:08:00 AM 118 / 5 / 22 @ 8:09:00 AM Valves Phase:DefaultPhase AV : 0.0 @ 8:15:15 AM AV Mean Gradient: 0.0 @ 8:15:15 AM Clinical Evaluation EBL: 5mL-10mL Procedural Details Procedure Consent Obtained. Admit Source: In Patient. Pre-Procedure Time Out. Identified patient by full name and date of as verbalized by the patient/guarantor. Does the consent match the physician's order: Yes. Accurate & Complete Informed Consent: Yes. Inpatient/Outpatient History & Physical on Chart: Yes. If H&P is completed, is and addenduem needed: No; If yes, is the addendum complete: N/A. Visualize and Verify Site with Patient/Guarantor: N/A. Relevant Radiology Images available: No. The risks, benefits, and alternatives of sedation and/or procedure were discussed by physician. The patient agrees to continue. Procedure started. [facility] Clinical Fraility Score: 3: Managing Well. Environmental Management Specialist Indications: Worsening Angina. Chest Pain Symptom Assessment: Typical Angina Symptoms. Correct patient, site and procedure confirmed by cath team. Current diagnosis: Unstable angina. PERRLA. Strong, equal hand associate chemist bilaterally. Lungs clear x 5 lobes. IV Site on Arrival: 20 gauge in the right anticubital. IV Fluids: 0.9% NaCl at KVO. 0 mL infused prior to worm farm laborer. Pre Procedural Pulses: bilateral radial was 3+. Pre Procedural Pulses: bilateral dorsalis pedis was Doppled. Pre Procedural Pulses: bilateral posterior tibial was Doppled. Oxygen started at 2liters/min via nasal canula. right radial was prepped with chloroprep then draped in the usual sterile fashion. right groin was prepped with chloroprep then draped in the usual sterile fashion. Physician notified. Baseline sample Acquired. HR: 66 BPM. Physician scrubbed in. Immediate Pre-Procedure Time Out. Correct Patient: Yes; Correct Procedure: Yes; Correct Site: Yes; Correct Patient Position: Yes; Correct Supplies: Yes; Dried Flammable Prep: Yes; Blood Products Available: No;. Lidocaine 1% infiltrated to the right radial. Arterial access obtained. A 5 salvadorean Luiz catheter in over wire. Multiple views taken of left coronary artery. Multiple views taken of left coronary artery. Catheter redirected to the RCA. Multiple views taken of right coronary artery. Catheter removed over the exchange wire. A 5 salvadorean Angled Pig catheter in over wire. EDP Sample taken: LV 124/8,21; HR: 70 BPM; SpO2: 96%. LV gram performed in HAWLEY @ 10 mL/second for a total of 30 mL. EDP Sample taken: LV 118/6,22; HR: 73 BPM; SpO2: 95%. Pullback taken: LV 118/5,22; AO 119/70(90); Mean: 0mmHg, Peak to Peak: 0mmHg, SEP: 16sec/min; HR: 73 BPM; SpO2: 96%. Catheter removed over the exchange wire. Physician scrubbed out. A TR Band was successful obtaining hemostatsis at the Right Radial artery insertion site. Post Procedure: Pulses reassessed and unchanged. PERRLA. Strong, equal hand associate chemist bilaterally. No VTE prophylaxis required. Medication's Wasted: Lidocaine 1% = 18 mL. Medication's Wasted: Nitro = 49.8 mg. Medication's Wasted: Heparin = 1000 units. Total IV fluids: 50 mL. Medication's Wasted: Other = Fentanyl 50mcg. Post-op diagnosis: Non-obstructive CAD of RCA. Endothelial Dysfunction. Complications: None. Estimated blood loss: 5mL-10mL. Responsiveness - Normal response to verbal stimuli; alert and oriented, PERRLA. Airway - Unaffected, no intervention required; spontaneous ventilation. Circulation: W/N/L, pulses unchanged. Nausea/Vomiting: No. Procedure completed. Patient transferred by bed to CPRU. Vital chart was stopped. Access Site Site: Right Radial artery Sheath Size: 6 Fr Hemostasis Method: TR Band Hemostasis Success: Successful Procedure Medications Start: 7:40 AM Stop: 7:40 AM Medication: Versed Amount: 1 mg Route: I.V. Start: 7:40 AM Stop: 7:40 AM Medication: Fentanyl Amount: 25 mcg Start: 7:48 AM Stop: 7:48 AM Medication: Versed Amount: 1 mg Route: I.V. Start: 7:50 AM Stop: 7:50 AM Medication: Nitrogylcerin Amount: 200 mcg Route: I.A. Start: 7:52 AM Stop: 7:52 AM Medication: Heparin Amount: 5000 units Route: I.V. Start: 7:54 AM Stop: 7:54 AM Medication: Nitrogylcerin Amount: 200 mcg Route: I.C. Start: 7:57 AM Stop: 7:57 AM Medication: Neosynephrine Amount: 200 mcg Route: I.V. Start: 8:06 AM Stop: 8:06 AM Medication: Fentanyl Amount: 25 mcg Route: I.V. I, the attending physician, have reviewed and verified all procedure medications. Yes, all medications given per verbal order History/Risk Factors Hypertension: Yes Dyslipidemia: Yes Peripheral Arterial Disease (PAD): No Myocardial Infarction (SC): No Obesity: No Renal Disease: No Tobacco Use: Former Prior Interventions PCI: No CABG: No Valve Surgery: No Report Signatures Finalized by Conchita Portillo MD on 09/09/2024 08:52 AM
[2024-09-09] MEDS: diphenhydrAMINE 50 mg Capsule PO (06:09)
[2024-09-09 06:29] LABS: Basophils # 0.1 10^3/uL (0.0-0.1); Basophils % 0.7 %; Eosinophils # 0.1 10^3/uL (0.0-0.8); Eosinophils % 1.6 %; Hematocrit 39.1 % (37-53); Lymphocytes # 2.1 10^3/uL (0.8-4.8); Lymphocytes % 23.4 %; Mean Corpuscular HGB Conc 29.9 g/dL (30-55); Mean Corpuscular Hemoglobin 25.2 pg (27-33); Mean Corpuscular Volume 84.3 fl (82-101); Mean Platelet Volume 9.3 fL (7.4-10.4); Monocytes % 11.2 %; Neutrophils # 5.56 10^3/uL (1.8-7.7); Neutrophils % 62.8 %; Nucleated Red Blood Cells % 0 %; Platelet Count 195 10^3/cmm (157-399); Red Blood Count 4.64 10^6/uL (3.85-5.65); Red Cell Distribution Width 14.8 % (12.1-15.1); White Blood Count 8.85 10^3/uL (3.29-11.43)
[2024-09-09 06:44] LABS: Anion Gap 14.1 (5-19); Blood Urea Nitrogen 17 mg/dL (8-23); Calcium 8.5 mg/dL (8.5-10.5); Carbon Dioxide 23 mmol/L (22-29); Chloride 106 mmol/L (98-107); Glucose 91 mg/dL (65-115); Osmolality Calculated 289 mOsm/kg (285-295); Potassium 4.1 mmol/L (3.5-5.1); Sodium 139 mmol/L (136-145)
--- NOTE | 2024-09-09 06:52 | P.PN_ITS ---
Subjective 2 Subjective: Patient n.p.o. for cardiac cath in the morning No active chest pain Hemodynamically stable Patient states that his chest pain comes and goes Appreciate cardiology recommendations Official echo report is pending Vitals/I&O/Wt Last Vital Signs Temp 97.8 F 09/08/24 20:00 Pulse 81 09/08/24 21:19 Resp 17 09/08/24 21:14 BP 115/72 09/08/24 20:00 Pulse Ox 96 09/08/24 21:14 O2 Del Method Nasal Cannula 09/08/24 21:14 O2 Flow Rate 3 09/08/24 21:14 09/08/24 09/08/24 09/08/24 06:59 14:59 22:59 Intake Total 480 / 480 Output Total 325 / 325 100 / 100 Balance -325 / -325 380 / 380 Weight last 48 hrs Weight 74.389 kg Weight 95.254 kg Physical Exam 2 Narrative: Euvolemic GCS 15 Nonfocal neuroexam Abdomen soft No active chest pain Hemodynamically stable Currently on room air at the time of evaluation Pleasant cooperative Data 09/09/24 06:17 09/09/24 06:17 A&P Assessment and plan (1) Hypertension: Qualifiers: Hypertension type: essential hypertension Qualified Code(s): I10 - Essential (primary) hypertension (2) Chest pain: (3) New onset left bundle branch block (LBBB): (4) Hyperlipidemia: Qualifiers: Hyperlipidemia type: mixed hyperlipidemia Qualified Code(s): E78.2 - Mixed hyperlipidemia (5) COPD (chronic obstructive pulmonary disease): Qualifiers: COPD type: emphysema Emphysema type: unspecified Qualified Code(s): J 43.9 - Emphysema, unspecified (6) Pulmonary fibrosis: (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): Plan Currently patient on ACS protocol New left bundle branch block Intermittent chest pain Echo report official pending Appreciate cardiology recommendations Plan for angiogram Further plan will be made after reviewing angiogram report Continue ACS protocol Full code Lovenox 70 mg every 12 hours which can be discontinued 09/09 because patient will finish 48 hours For hypertension continue losartan and metoprolol Patient has bilateral ankle braces Idiopathic pulmonary fibrosis, continue budesonide, DuoNeb treatment, PFTs not consistent with COPD requiring 2 to 3 L in the hospital, at baseline his oxygen fluctuate between 2 to 4 L at home Attestations 2 Medical Necessity Statement*: Continue medical management Diagnoses Essential hypertension I10 Hypertension type: essential hypertension Chest pain R07.9 New onset left bundle branch block (LBBB) I44.7 Mixed hyperlipidemia E78.2 Hyperlipidemia type: mixed hyperlipidemia Pulmonary emphysema, unspecified emphysema type J43.9 COPD type: emphysema Emphysema type: unspecified Pulmonary fibrosis J84.10 Combined pulmonary fibrosis and emphysema (CPFE) J43.9; J84.10
--- NOTE | 2024-09-09 07:42 | W.PM.OPSUD ---
Surgery/Procedure H&P Update DATE OF PROCEDURE: September 09, 2024 DATE H&P PERFORMED: 09/08/24 H&P UPDATE INFORMATION: I have reviewed H&P completed within last 30 days, I have examined patient prior to procedure and No changes to prior documentation PREOP DIAGNOSIS: Unstable angina PHYSICAL EXAM: alert, oriented x 3, clear to auscultation bilaterally, regular rate & rhythm and operative site marked AIRWAY EVAL/ANESTHESIA PLAN: normal airway, see other exam findings, ASA II, Risks, benefits & alternatives of sedation and/or procedure discussed and Patient agrees to continue as planned
--- NOTE | 2024-09-09 08:52 | PM.PN ---
Subjective Subjective: This morning patient was taken to the [employer] Admin noted to have nonobstructive 30 to 40% nonsignificant lesion of the mid RCA thought to be treated medically. LAD shows sluggish flow secondary to endothelial dysfunction, long-acting nitroglycerin such as isosorbide mononitrate 30 mg will be prescribed. Once patient complete bedrest will discharge today. Medications: Reviewed: Yes Vitals/I&O/Wt Last Vital Signs Temp 97.5 F L 09/09/24 04:00 Pulse 68 09/09/24 08:35 Resp 16 09/09/24 08:35 BP 107/66 09/09/24 08:35 Pulse Ox 95 09/09/24 08:35 O2 Del Method Nasal Cannula 09/09/24 08:22 O2 Flow Rate 3 09/09/24 08:22 09/08/24 09/09/24 09/09/24 22:59 06:59 14:59 Intake Total 480 / 480 Output Total 100 / 100 350 / 450 Balance 380 / 380 -350 / 30 Weight last 48 hrs Weight 151 lb 6.4 oz Weight 164 lb Weight 210 lb Physical Exam Const: COMMON NORMALS: alert OTHER: GENERAL: Patient is alert, awake and oriented x3. HEART: Regular S1 and S2. No murmur, rub or gallop. LUNGS: Mild inspiratory crackle bilaterally. CENTRAL NERVOUS SYSTEM: Grossly nonfocal. EXTREMITIES: Lower extremities with out edema bilaterally. Resp: COMMON NORMALS: clear to auscultation bilaterally AUSCULTATION: clear to auscultation bilaterally Neuro: SENSORIUM/ORIENTATION: Yes alert Data 09/09/24 06:17 09/09/24 06:17 A&P Assessment and plan (1) New onset left bundle branch block (LBBB): Most likely due to interventricular conduction problem. Isosorbide mononitrate 30 mg p.o. daily along with 0.4 mg of nitroglycerin sublingual as needed basis for chest pain since sluggish flow was noted in the LAD most likely secondary to endothelial dysfunction and lack of nitric oxide. Continue aspirin and statin. Once complete bedrest from a cardiovascular perspective patient can be discharged. (2) Pulmonary fibrosis: Continue treatment as suggested, continue oxygenation (3) Chest pain: Most likely secondary to endothelial dysfunction isosorbide mononitrate prescribed as above. Follow-up with cardiology in 4 to 5 weeks with our cardiology nurse practitioner. Attestations Medical Necessity Statement*: From a cardiovascular perspective patient can be discharged home today. Coding Level of Care Code Acute Code for Chg Fwd Diagnoses New onset left bundle branch block (LBBB) I44.7 Pulmonary fibrosis J84.10 Chest pain R07.9
[2024-09-09] MEDS: sodium chloride 0.9% 1,000 ML 100 ML IV (09:45)
--- NOTE | 2024-09-09 10:30 | SUR.PHASEII ---
TR band off per protocol. Site cleansed with warm water and patted dry. A large band aid was applied to the site and loosely secured with coban. No bleeding or hematoma noted. Patient tolerated well. Post radial activity instructions reiterated to the patient with his understanding verbalized.
[2024-09-09] MEDS: aspirin 81 mg EC Tablet PO (10:35)
[2024-09-09] MEDS: guaiFENesin 100 mg/5 mL UDC 10 mL 200 MG PO (10:36)
[2024-09-09] MEDS: clopidogrel 75 mg Tablet PO (10:36)
[2024-09-09] MEDS: isosorbide mononitrate ER 30 mg Tablet PO (10:36)
[2024-09-09] MEDS: metoprolol tartrate 50 mg Tablet 25 MG PO (10:36)
[2024-09-09] MEDS: finasteride 5 mg Tablet PO (10:36)
[2024-09-09] MEDS: losartan 50 mg Tablet 25 MG PO (10:36)
[2024-09-09] MEDS: sennosides-docusate Tablet 1 TAB PO (10:36)
--- NOTE | 2024-09-09 11:32 | SUR.PHASEII ---
Report called to ZACH Celestin. Will transfer back to 264.
--- NOTE | 2024-09-09 12:33 | PM.DCS ---
Discharge Providers Date of Admission: 09/08/24 00:11 Date of Discharge: September 09, 2024 Attending Provider at Admission: Conchita Ordoñez MD Attending Provider at Discharge: Ailyn Segura MD Primary Care Provider: Gypys Salcedo MD Diagnoses at Discharge Discharge Diagnosis (1) New onset left bundle branch block (LBBB): Status: Resolved (2) Pulmonary fibrosis: Status: Acute (3) Chest pain: Status: Resolved Reason for Visit Reason for Visit: CP Hospital Course Hospital Course Patient presented to the hospital with chest pain with a new left bundle branch block cardiology was consulted and coronary angiogram was performed which showed nonobstructive 30 to 40% nonsignificant lesion of mid RCA thought to be treated medically. LAD showed sluggish flow secondary to endothelial dysfunction therefore Imdur was prescribed. Patient was doing well postprocedure and discharged home in stable condition on aspirin Plavix beta-susannah KAYLAN inhibitor Imdur. He is to follow-up with cardiology as an outpatient. Physical Exam Narrative: Euvolemic GCS 15 Nonfocal neuroexam Abdomen soft No active chest pain Hemodynamically stable Currently on room air at the time of evaluation [facility] Discharge Data Studies Completed and Pending Completed Studies During Hospitalization Category Date Time Status CTA PE [CT angio chest PE protcl [id number]] Stat Cat Scan 09/07/24 23:27 Completed FLOOR RUNNER request for service Routine Exams 09/09/24 06:01 Completed XR chest 1V portable [id number] Stat Exams 09/07/24 21:39 [place] [id number] Routine Ultrasound 09/08/24 23:27 Completed Pending at discharge Category Date Time Status Basic Metabolic Panel AM LABS Lab 09/10/24 04:00 Ordered Basic Metabolic Panel AM LABS Lab 09/11/24 04:00 Ordered Complete Blood Count w/Auto AM LABS Lab 09/10/24 04:00 Ordered Complete Blood Count w/Auto AM LABS Lab 09/11/24 04:00 Ordered Radiology Impressions Chest X-Ray 09/07/24 21:39 IMPRESSION: No acute findings. Chest CTA 09/07/24 23:27 IMPRESSION: 1. Negative exam for pulmonary embolus and aortic dissection. 2. Bilateral diffuse pulmonary fibrosis. 3. Atherosclerosis including coronary artery calcification. 4. Cardiomegaly. Venous Duplex 09/08/24 23:27 IMPRESSION: No evidence of deep vein thrombosis. ADDENDUM: 09/08/24 1014 ADDENDUM: Report completed after review of worksheet by division operations manager in the system. Laboratory Results WBC 8.85 10^3/uL (3.29-11.43) 09/09/24 06:17 RBC 4.64 10^6/uL (3.85-5.65) 09/09/24 06:17 Hgb 11.70 g/dL (11.27-16.99) 09/09/24 06:17 Hct 39.1 % (37-53) 09/09/24 06:17 MCV 84.3 fl (82-101) 09/09/24 06:17 MCH 25.2 pg (27-33) L 09/09/24 06:17 MCHC 29.9 g/dL (30-55) L 09/09/24 06:17 RDW 14.8 % (12.1-15.1) 09/09/24 06:17 Plt Count 195 10^3/cmm (157-399) 09/09/24 06:17 MPV 9.3 fL (7.4-10.4) 09/09/24 06:17 Neut % (Auto) 62.8 % 09/09/24 06:17 Lymph % (Auto) 23.4 % 09/09/24 06:17 [place] % (Auto) 11.2 % 09/09/24 06:17 Eos % (Auto) 1.6 % 09/09/24 06:17 Baso % (Auto) 0.7 % 09/09/24 06:17 Neut # (Auto) 5.56 10^3/uL (1.8-7.7) 09/09/24 06:17 Lymph # (Auto) 2.1 10^3/uL (0.8-4.8) 09/09/24 06:17 [place] # (Auto) 1.0 10^3/uL (0.2-0.9) H 09/09/24 06:17 Eos # (Auto) 0.1 10^3/uL (0.0-0.8) 09/09/24 06:17 Baso # (Auto) 0.1 10^3/uL (0.0-0.1) 09/09/24 06:17 Nucleated RBC % (auto) 0 % 09/09/24 06:17 Nucleated RBCs # 0.0 /100WBC 09/09/24 06:17 D-Dimer 0.79 ug/mLFEU (0-0.59) H 09/07/24 20:04 Specimen Type Arterial 09/07/24 22:08 Sample Site Brachial, left 09/07/24 22:08 ABG pH 7.41 (7.35-7.45) 09/07/24 22:08 ABG pCO2 36.7 mmHg (35-45) 09/07/24 22:08 ABG pO2 74.6 mmHg (80.0-100.0) L 09/07/24 22:08 ABG HCO3 23.3 mmol/L (22-26) 09/07/24 22:08 ABG Base Excess -0.9 mmol/L (-2.0-2.0) 09/07/24 22:08 Dharmesh Test N/a 09/07/24 22:08 Hematocrit 41.0 % (42-52) L 09/07/24 22:08 O2 Delivery Device Nc 09/07/24 22:08 O2 Liters/Min 4.5 % 09/07/24 22:08 Pipe Caulker ID Jdb 09/07/24 22:08 Sodium 139 mmol/L (136-145) 09/09/24 06:17 Potassium 4.1 mmol/L (3.5-5.1) 09/09/24 06:17 Chloride 106 mmol/L (98-107) 09/09/24 06:17 Carbon Dioxide 23 mmol/L (22-29) 09/09/24 06:17 Anion Gap 14.1 (5-19) 09/09/24 06:17 BUN 17 mg/dL (8-23) 09/09/24 06:17 Creatinine 0.8 mg/dL (0.7-1.2) 09/09/24 06:17 GFR Calculation Not Reportable 09/09/24 06:17 Glucose 91 mg/dL (65-115) 09/09/24 06:17 Calculated Osmolality 289 mOsm/kg (285-295) 09/09/24 06:17 Calcium 8.5 mg/dL (8.5-10.5) 09/09/24 06:17 Magnesium 1.8 mg/dL (1.7-2.3) 09/08/24 02:09 Total Bilirubin 0.3 mg/dL (0.15-1.2) 09/07/24 20:04 AST 18 U/L (0-40) 09/07/24 20:04 ALT 15 U/L (0-41) 09/07/24 20:04 Alkaline Phosphatase 143 U/L (40-130) H 09/07/24 20:04 Troponin T Baseline 7 ng/L (0-15) 09/07/24 20:04 Troponin T 120 Minute 6.88 ng/L (0-15) 09/07/24 21:42 Delta Troponin T -0.12 ABS# (0-10) L 09/07/24 21:42 Troponin T Hi Sens 6Hr 6.00 ng/L (0-15) 09/08/24 02:09 Troponin T Hi Sens 6Hr Delta -1.00 ng/L (0-12) L 09/08/24 02:09 C-Reactive Protein 23.9 mg/L (0.0-4.9) H 09/08/24 02:09 NT-Pro-B Natriuret Pep 78 pg/mL (0-450) 09/07/24 20:04 Total Protein 6.9 g/dL (6.6-8.7) 09/07/24 20:04 Albumin 4.0 g/dL (3.5-5.2) 09/07/24 20:04 Globulin 2.9 g/dL (1.3-4.6) 09/07/24 20:04 Procalcitonin 0.03 ng/mL (0-0.5) 09/07/24 22:04 Adenovirus (PCR) Not detected (NOT DETECT) 09/07/24 22:09 C. pneumoniae DNA (PCR) Not detected (NOT DETECT) 09/07/24 22:09 Coronavirus 229E (PCR) Not detected (NOT DETECT) 09/07/24 22:09 Human Metapneumovir PCR Not detected (NOT DETECT) 09/07/24 22:09 Influenza A (H1) PCR Not detected (NOT DETECT) 09/07/24 22:09 Influ A (H1/09) PCR Not detected (NOT DETECT) 09/07/24 22:09 Influenza A (H3) PCR Not detected (NOT DETECT) 09/07/24 22:09 Influenza Type A (PCR) Not detected (NOT DETECT) 09/07/24 22:09 Influenza Type B (PCR) Not detected (NOT DETECT) 09/07/24 22:09 M. pneumoniae (PCR) Not detected (NOT DETECT) 09/07/24 22:09 Parainfluenza 1 (PCR) Not detected (NOT DETECT) 09/07/24 22:09 Parainfluenza 2 (PCR) Not detected (NOT DETECT) 09/07/24 22:09 Parainfluenza 3 (PCR) Not detected (NOT DETECT) 09/07/24 22:09 Parainfluenza 4 (PCR) Not detected (NOT DETECT) 09/07/24 22:09 RSV Type A (PCR) Not detected (NOT DETECT) 09/07/24 22:09 RSV Type B (PCR) Not detected (NOT DETECT) 09/07/24 22:09 Entero/Rhino (PCR) Not detected (NOT DETECT) 09/07/24 22:09 SARS-CoV-2 (PCR) Not detected (NOT DETECT) 09/07/24 22:09 Vitals Last Vital Signs Temp 97.4 F L 09/09/24 11:44 Pulse 73 09/09/24 11:44 Resp 16 09/09/24 11:15 BP 114/66 09/09/24 11:44 Pulse Ox 92 09/09/24 11:44 O2 Del Method Room Air 09/09/24 11:44 O2 Flow Rate 3 09/09/24 08:22 Discharge Plan Discharge Patient Disposition: Home Condition: Stable Prescriptions: New isosorbide mononitrate 30 mg Tablet Extended Release 24 Hr 30 mg PO DAILY Qty: 30 0RF Continued finasteride 5 mg tablet 5 mg PO DAILY metoprolol tartrate 50 mg tablet 25 mg PO BID pantoprazole 40 mg tablet,delayed release (DR/EC) 40 mg PO QAM aspirin [Adult Low Dose Aspirin] 81 mg tablet,delayed release (DR/EC) 81 mg PO DAILY (DME) VI MARQUEZ See Rx Instructions .ROUTE .MEDSUPPLY Qty: 1 0RF Rx Instructions: As directed bupropion HCl 150 mg tablet sustained-release 12 hr 150 mg PO QAM gabapentin 100 mg capsule See Rx Instructions .ROUTE .COMPLEX Rx Instructions: Take 1 capsule by mouth in the morning, 1 capsule in the afternoon, and 2 capsules at bedtime. clopidogrel 75 mg tablet 75 mg PO DAILY nitroglycerin 0.4 mg tablet, sublingual 0.4 mg sublingual Q5M PRN (Reason: Chest Pain) Rx Instructions: do not exceed 3 doses per episode albuterol sulfate 2.5 mg /3 mL (0.083 %) solution for nebulization 2.5 mg inhalation Q6H Qty: 1500 0RF ferrous sulfate 325 mg (65 mg iron) tablet 325 mg PO TID losartan 50 mg tablet 50 mg PO DAILY Qty: 90 3RF fluticasone propionate [Allergy Relief (fluticasone)] 50 mcg/actuation spray,suspension 1 spray intranasal DAILY Rx Instructions: administer into each nostril Breztri Aerosphere 160-9-4.8 mcg/actuation HFA aerosol inhaler 2 inh inhalation BID Qty: 10.7 6RF ketoconazole 2 % Shampoo See Rx Instructions .ROUTE .COMPLEX Rx Instructions: 1 applic topically 2 times per week as directed. Leave on for 15 minutes then rinse thoroughly. Alternae using selsun blue shampoo. cetirizine 10 mg Tablet 10 mg PO DAILY quetiapine 100 mg Tablet 50 mg PO BEDTIME benzonatate 100 mg Capsule 100 mg PO BID PRN (Reason: Cough) B complex-vitamin C-folic acid 0.8 mg Tablet 1 tab PO DAILY albuterol sulfate 90 mcg/actuation Hfa Aerosol Inhaler 2 puff INHALATION QID PRN (Reason: Shortness Of Breath) prazosin 2 mg Capsule 2 mg PO QPM Artificial Tears (PF) Dropperette 1 drp ophthalmic (eye) Q4H PRN (Reason: Dry Eyes) cholecalciferol (vitamin D3) [Vitamin D3] 50 mcg (2,000 unit) Tablet 100 mcg PO DAILY PreserVision AREDS 2 Plus MV 200 mcg-15 mcg- 5 mg-1 mg Capsule 1 cap PO BID guaifenesin [Wal-Tussin] 100 mg/5 mL liquid 200 mg PO TID ipratropium-albuterol 0.5 mg-3 mg(2.5 mg base)/3 mL solution for nebulization 3 ml inhalation Q6H PRN (Reason: shortness of breath or wheezing) Qty: 180 0RF Discontinued atorvastatin 10 mg Tablet 10 mg PO QPM Discharge Orders: Discharge Order (Routine); Ordered 09/09/24 Ordered By: Ailyn Segura Referrals: Gypsy Salcedo MD [Primary Care Provider] - 4-7 days (The [place] will call you with an appointment.) Dilcia Correa FNP [Nurse Practitioner] - 1 month (We have notified your physician's clinic of the need for a follow-up appointment to be scheduled. If you have not heard from them within the next 2 business days, please call them directly. ) Discharge Diet: Cardiac Discharge Activity: Limit activity as instructed Patient Instructions: COPD, Isosorbide Mononitrate (By mouth) (Imdur, Imdur ER, Ismo), Chest Pain (GEN), COPD Stoplight, Opioid Safety Discharge Attestations Time Spent in Discharge Care*: greater than 30 min Quality Metrics Clinical Quality Measures [ No reported AMI, CVA or VTE this stay] Coding Level of Care Code Acute Code for Chg Fwd Diagnoses New onset left bundle branch block (LBBB) I44.7 Pulmonary fibrosis J84.10 Chest pain R07.9
--- NOTE | 2024-09-09 14:18 | PC.NURSE ---
patient belongings Patient was sent home with wallet that was locked up in [facility]. $343 total in wallet at the time, which is the same as when it was placed in the [facility] by ZACH Wilder
== END 2024-09-09 14:06 | disposition home or self-care (01) | DRG 286 ==
LOC: ER 23:17 → MEDSURG 09-08 00:13
PROVIDERS: Emergency Medicine; Internal Medicine Cardiovascular Disease; Admitting Provider Internal Medicine; Emergency Provider Emergency Medicine; PCP Family Medicine; Visit Provider Internal Medicine
PROC: 4A023N7 Measurement of Cardiac Sampling and Pressure, Left Heart, Percutaneous Approach (ICD-10-PCS; principal; 2024-09-09 07:30)
DX: I25.110 Atherosclerotic heart disease of native coronary artery with unstable angina pectoris (principal); J96.01 Acute respiratory failure with hypoxia; I44.7 Left bundle-branch block, unspecified; J84.112 Idiopathic pulmonary fibrosis; J43.9 Emphysema, unspecified; I25.5 Ischemic cardiomyopathy; I10 Essential (primary) hypertension; J47.9 Bronchiectasis, uncomplicated; G62.9 Polyneuropathy, unspecified; F43.10 Post-traumatic stress disorder, unspecified; F41.9 Anxiety disorder, unspecified; F32.A Depression, unspecified; E78.5 Hyperlipidemia, unspecified; Z99.81 Dependence on supplemental oxygen; Z79.82 Long term (current) use of aspirin; Z79.02 Long term (current) use of antithrombotics/antiplatelets
CPT/HCPCS: 36415; 71045; 71275; 80048; 80053; 82803; 83735; 83880; 84145; 84484; 85025; 85378; 86140; 87486; 87581; 87633; 93005; 93458; 93970; 94640; 96372; 96374; 96375; 96376; 99152; 99153; 99285; C1769; C1887; C1894; J1644; J1650; J2250; J2270; J2371; J2405; J2919; J3010; J3490; J7030; J7050; J7626; Q0163; Q9967

== ENCOUNTER → 2024-10-24 15:11 | Outpatient (BNVA) | payer OTHER, SELFPAY | PROVIDERS: PCP Family Medicine; Visit Provider Nurse Practitioner Family | DX: I25.10 Atherosclerotic heart disease of native coronary artery without angina pectoris (principal); I10 Essential (primary) hypertension; Z87.891 Personal history of nicotine dependence | CPT/HCPCS: 99214 ==

== ENCOUNTER 2025-03-26 21:06 | Emergency (ER) | payer OTHER, MEDICARE, SELFPAY ==
--- OUTSIDE RECORDS SUMMARY | 2024-02-17 04:00 | XMS_ITS ---
Author Organization [facility] Address [address] [place] [address] Care Team Providers Care Loop Machine Operator Name Role Phone Gypsy Arce MD Primary Care Provider Unavaila Tato Reynolds Unavailable [phone] Migration, Provider Unavailable Unavailable REASON FOR VISIT EMR-Kirill Encounters Encounter Location Date Provider Diagnosis Migrated_Facility 0 0 02/17/2024 Provider Migration Plan Of Treatment Medication Medication Name Sig Start Date Stop Date Notes Aspirin 81 MG Tablet Chewable Oral 06/14/2022 [id number] 200 ACTUAT albuterol 0.09 MG/ACTUAT Metered Dose Inhaler [ProAir] INTRAPULMONARY 02/14/2022 *Reorder from [facility] for eRx and Interaction Alerts* dextran 70 1 MG/ML / hypromellose 3 MG/ML Ophthalmic Solution 06/14/2022 *Reorder fro [facility] for eRx and Interaction Alerts* capsaicin 0.75 MG/ML Topical Cream CUTANEOUS 06/14/2022 *Reorder from [facility] for eRx and Interaction Alerts* ascorbic acid 226 MG / beta carotene 40964 UNT / cuprous oxide 0.8 MG / dl-alpha tocopheryl acetate 200 UNT / zinc oxide 34.8 MG Oral Capsule [PreserVision] ORAL 02/14/2022 *Reorder from [facility] for eRx and Interaction Alerts* tizanidine 4 MG Oral Capsule ORAL 02/14/2022 *Reorder from [facility] for eRx and Interaction Alerts* Potassium Citrate ER 10 MEQ (1080 MG) Tablet Extended Release Oral 06/14/2022 08/13/2022 28 ACTUAT olodaterol 0.0025 MG/ACTUAT / tiotropium 0.0025 MG/ACTUAT Inhalation [place] [Stiolto] INTRAPULMONARY 02/14/2022 *Reorder from [facility] dispan for eRx and Interaction Alerts* 12 HR bupropion hydrochloride 150 MG Extended Release Oral Tablet ORAL 02/14/2022 *Reorder from [facility] dispan for eRx and Interaction Alerts* Metoprolol Tartrate 100 MG Oral Tablet ORAL 02/14/2022 *Reorder from [facility] dispan for eRx and Interaction Alerts* Tamsulosin HCl 0.4 MG Capsule Oral 02/14/2022 03/16/2022 HYDROcodone-Acetaminophen 7.5-325 MG Tablet Oral 02/14/2022 02/21/2022 Progress Notes * WANDER CARDENAS TRESDOB:[birth year] (79 yo M)Acc No.[id number]:02/17/2024 Patient: WANDER GARCÍA :1945 A ge:78 Y S ex:Male Address:[address] [place] [id number] * Refills Stop Aspirin Tablet Chewable, 81 MG, Oral Stop HYDROcodone-Acetaminophen Tablet, 7.5-325 MG, Oral Stop Tamsulosin HCl Capsule, 0.4 MG, Oral Stop Potassium Citrate ER Tablet Extended Release, 10 MEQ (1080 MG), Oral Stop tizanidine 4 MG Oral Capsule, ORAL Stop Metoprolol Tartrate 100 MG Oral Tablet, ORAL Stop 12 HR bupropion hydrochloride 150 MG Extended Release Oral Tablet, ORAL Stop 28 ACTUAT olodaterol 0.0025 MG/ACTUAT / tiotropium 0.0025 MG/ACTUAT Inhalation [place] [Stiolto], INTRAPULMONARY Stop ascorbic acid 226 MG / beta carotene 89711 UNT / cuprous oxide 0.8 MG / dl- alpha tocopheryl acetate 200 UNT / zinc oxide 34.8 MG Oral Capsule [PreserVision], ORAL Stop capsaicin 0.75 MG/ML Topical Cream, CUTANEOUS Stop dextran 70 1 MG/ML / hypromellose 3 MG/ML Ophthalmic Solution Stop [id number] 200 ACTUAT albuterol 0.09 MG/ACTUAT Metered Dose Inhaler [ProAir], INTRAPULMONARY Subjective: * Chief Complaints: * E MR-Kirill * * Date:
--- OUTSIDE RECORDS SUMMARY | 2024-02-18 04:00 | XMS_ITS ---
Author Organization [facility] Address [address] [place] [address] Care Team Providers Care Manager Software Development Name Role Phone Gypsy Arce MD Primary Care Provider Unavaila Tato Reynolds Unavailable [phone] Migration, Provider Unavailable Unavailable Allergies Allergen (clinical drug ingredient) Drug/Non Drug Allergy documented on EMR Reaction Allergy Type Onset Date Status Flexeril Reaction 1:Rash Drug Allergy 11/03/2021 active lisinopril Lisinopril Reaction 1:Rash Drug Allergy 2 active REASON FOR VISIT EMR-Kirill Medications Medication SIG (Take, Route, Frequency, Duration) Notes Start Date End Date Status Gabapentin 100 MG Oral Capsule ORAL *Reorder from [facility] for eRx and Interaction Alerts* 02/14/2022 Active Losartan Potassium 50 MG Oral Tablet ORAL *Reorder from [facility] for eRx and Interaction Alerts* 11/03/2021 Active Pirfenidone 267 MG Oral Capsule ORAL *Reorder from [facility] for eRx and Interaction Alerts* 06/14/2022 Active Clopidogrel Bisulfate 75 MG Tablet Oral 06/14/2022 Active olodaterol 0.0025 MG/ACTUAT Inhalation [place] INTRAPULMONARY *Reorder from [facility] for eRx and Interaction Alerts* 02/14/2022 Active Aspirin 81 81 MG Tablet Chewable Oral 11/03/2021 Active atorvastatin 20 MG Oral Tablet ORAL *Reorder from [facility] for eRx and Interaction Alerts* 11/03/2021 Active quetiapine 100 MG Oral Tablet ORAL *Reorder from [facility] for eRx and Interaction Alerts* 11/03/2021 Active Prazosin 1 MG Oral Capsule ORAL *Reorder from [facility] for eRx and Interaction Alerts* 11/03/2021 Active Metoprolol Tartrate 50 MG Oral Tablet ORAL *Reorder from [facility] for eRx and Interaction Alerts* 02/14/2022 Active Pantoprazole Sodium 40 MG Tablet Delayed Release Oral 11/03/2021 Active Finasteride 5 MG Tablet Oral 11/03/2021 Active Social History Social History Additional Details Category Social Info Options Details Migrated Social History Migrated Social History History of tobacco use : , Smoking Status : Former tobacco user , Smoking Status : Never used tobacco Encounters Encounter Location Date Provider Diagnosis Migrated_Facility 0 0 02/18/2024 Provider Migration Plan Of Treatment No Information Progress Notes * WANDER CARDENASDOB:[birth year] (79 yo M)Acc No.[id number]:02/18/2024 Patient: WANDER GARCÍA :1945 A ge:78 Y S ex:Male Address:[address] [place] [id number] Subjective: * Chief Complaints: * E MR-Kirill * Family History: F ather: PRN - Father: :: CHF,,known absent , :: Diabetes,,known absent . M other: PRN - Mother: :: Cancer,,known absent , :: Diabetes,,known absent , :: Hypertension,,known absent . S iblings: SIB - Brother: :: Cancer,,known absent , :: Diabetes,,known absent . * Social History: M igrated Social History: M igrated Social History: History of tobacco use : , Smoking Status : Former tobacco user , Smoking Status : Never used tobacco. * Medications: T akingClopidogrel Bisulfate 75 MG Tablet Oral Finasteride 5 MG Tablet Oral Pantoprazole Sodium 40 MG Tablet Delayed Release Oral Aspirin 81 81 MG Tablet Chewable Oral atorvastatin 20 MG Oral Tablet ORAL , Notes to Pharmacist: *[facility] Interaction Alert[facility]*quetiapine 100 MG Oral Tablet ORAL , Notes to Pharmacist: *[facility] for [facility] and Interaction Alerts*Prazosin 1 MG Oral Capsule ORAL , Notes to Pharmacist: *[facility] for [facility] and Interaction Alerts*Metoprolol Tartrate 50 MG Oral Tablet ORAL , Notes to Pharmacist: *Reorder from [facility] for eRx and Interaction Alerts*Gabapentin 100 MG Oral Capsule ORAL , Notes to Pharmacist: *Reorder from [facility] for eRx and Interaction Alerts*Losartan Potassium 50 MG Oral Tablet ORAL , Notes to Pharmacist: *Reorder from [facility] for eRx and Interaction Alerts*Pirfenidone 267 MG Oral Capsule ORAL , Notes to Pharmacist: *Reorder from [facility] for eRx and Interaction Alerts*olodaterol 0.0025 MG/ACTUAT Inhalation [place] INTRAPULMONARY , Notes to Pharmacist: *Reorder from [facility] for eRx and Interaction Alerts*Taking Clopidogrel Bisulfate 75 MG Tablet Oral Taking Finasteride 5 MG Tablet Oral Taking Pantoprazole Sodium 40 MG Tablet Delayed Release Oral Taking Aspirin 81 81 MG Tablet Chewable Oral Taking atorvastatin 20 MG Oral Tablet ORAL , Notes to Pharmacist: *Reorder from [facility] for eRx and Interaction Alerts*Taking quetiapine 100 MG Oral Tablet ORAL , Notes to Pharmacist: *Reorder from [facility] for eRx and Interaction Alerts*Taking Prazosin 1 MG Oral Capsule ORAL , Notes to Pharmacist: *Reorder from [facility] for eRx and Interaction Alerts*Taking Metoprolol Tartrate 50 MG Oral Tablet ORAL , Notes to Pharmacist: *Reorder from [facility] for eRx and Interaction Alerts*Taking Gabapentin 100 MG Oral Capsule ORAL , Notes to Pharmacist: *Reorder from [facility] for eRx and Interaction Alerts*Taking Losartan Potassium 50 MG Oral Tablet ORAL , Notes to Pharmacist: *Reorder from [facility] for eRx and Interaction Alerts*Taking Pirfenidone 267 MG Oral Capsule ORAL , Notes to Pharmacist: *Reorder from [facility] for eRx and Interaction Alerts*Taking olodaterol 0.0025 MG/ACTUAT Inhalation [place] INTRAPULMONARY , Notes to Pharmacist: *Reorder from [facility] for eRx and Interaction Alerts* * Allergies: L isinopril: Reaction 1:Rash - Allergy - Onset Date 11/03/2021Flexeril: Reaction 1:Rash - Allergy - Onset Date 11/03/2021 * * Date:
[2025-03-26 21:09] VITALS: BP 100/69; PULSE 90; RESP 30; TEMP 36.4; O2SAT 97
--- NOTE | 2025-03-26 21:33 | XRR_ITS ---
PROCEDURE INFORMATION: Exam: XR Chest Exam date and time: 03/26/2025 9:36 PM Age: 79 years old Clinical indication: Shortness of breath; Additional info: Short of breath TECHNIQUE: Imaging protocol: Radiologic exam of the chest. Views: 1 view. COMPARISON: CT angio chest PE protcl [id number] 09/07/2024 11:42 PM FINDINGS: Lungs: Redemonstrated chronic fibrotic changes of the lungs. There is increased opacity in the left lung base compared to chest radiograph from 07/21/2024. Pleural spaces: Unremarkable. No pleural effusion. No pneumothorax. Heart/Mediastinum: Unremarkable. No cardiomegaly. Bones/joints: Unremarkable. XR/XR chest 1V portable [id number] IMPRESSION: Redemonstrated chronic fibrotic changes of the lungs. Increased left lung base opacity concerning for superimposed pneumonia.
--- NOTE | 2025-03-26 21:35 | W.ED.SOB ---
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 Patient states son has similar symptoms however son was diagnosed with viral syndrome. Patient also stated he was sick 2 weeks ago with the same sort of symptoms that dissipated. He admits to association of chest discomfort in the lower central area of his chest without radiation. Denies change in sputum production. Denies fever, chills. Associated symptoms: Deny chest pain, extremity pain, lightheadedness, palpitations or syncope Related Data Home Medications ?Medication ?Instructions ?Recorded ?Confirmed aspirin 81 mg tablet,delayed 81 mg PO DAILY 11/12/19 10/24/24 release (Adult Low Dose Aspirin) finasteride 5 mg tablet 5 mg PO DAILY 11/12/19 10/24/24 metoprolol tartrate 50 mg tablet 25 mg PO BID 11/12/19 10/24/24 pantoprazole 40 mg tablet,delayed 40 mg PO QAM 11/12/19 10/24/24 release clopidogrel 75 mg tablet 75 mg PO DAILY 05/24/22 10/24/24 bupropion HCl 150 mg tablet,12 hr 150 mg PO QAM 06/01/22 10/24/24 sustained-release gabapentin 100 mg capsule See Rx Instructions .Route .COMPLEX 06/01/22 10/24/24 nitroglycerin 0.4 mg sublingual 0.4 mg sublingual Q5M PRN Chest 06/14/23 10/24/24 tablet Pain ferrous sulfate 325 mg (65 mg 325 mg PO TID 08/10/23 10/24/24 iron) tablet fluticasone propionate 50 1 spray intranasal DAILY 04/10/24 10/24/24 mcg/actuation nasal spray,suspension (Allergy Relief (fluticasone)) albuterol sulfate 90 mcg/actuation 2 puff inhalation QID PRN 07/21/24 10/24/24 aerosol inhaler Shortness Of Breath benzonatate 100 mg capsule 100 mg PO BID PRN Cough 07/21/24 10/24/24 cetirizine 10 mg tablet 10 mg PO DAILY 07/21/24 10/24/24 cholecalciferol (vitamin D3) 50 100 mcg PO DAILY 07/21/24 10/24/24 mcg (2,000 unit) tablet (Vitamin D3) dextran 70-hypromellose eye drops 1 drp ophthalmic (eye) Q4H PRN Dry 07/21/24 10/24/24 in a dropperette (Artificial Tears Eyes (PF) drops in a dropperette) guaifenesin 100 mg/5 mL oral 200 mg PO TID cough 07/21/24 10/24/24 liquid (Wal-Tussin) ketoconazole 2 % shampoo See Rx Instructions .Route .COMPLEX 07/21/24 10/24/24 mv-mn-folic 200 mcg-vit K 15 1 cap PO BID 07/21/24 10/24/24 mcg-lutein 5 mg-zeaxanthin 1 mg capsule (PreserVision AREDS 2 Plus Multivit) prazosin 2 mg capsule 2 mg PO QPM 07/21/24 10/24/24 quetiapine 100 mg tablet 50 mg PO BEDTIME 07/21/24 10/24/24 vitamin B complex-vitamin C-folic 1 tab PO DAILY 07/21/24 10/24/24 acid 0.8 mg tablet Previous Rx's ?Medication ?Instructions ?Recorded CAM WALKER #1 ea 10/19/21 albuterol sulfate 2.5 mg/3 mL 2.5 mg (3 mL) inhalation Q6H 11/10/22 (0.083 %) solution for nebulization #1,500 mL budesonide 160 mcg-glycopyr 9 2 inh inhalation BID #10.7 grams 12/14/23 mcg-formot 4.8 mcg/actuation HFA inhaler (Breztri Aerosphere) ipratropium 0.5 mg-albuterol 3 mg 3 ml inhalation Q6H PRN shortness 07/21/24 (2.5 mg base)/3 mL nebulization of breath or wheezing #180 mL soln atorvastatin 40 mg tablet (Lipitor) 40 mg PO DAILY #90 tabs 10/24/24 isosorbide mononitrate 30 mg 30 mg PO DAILY #90 tabs 10/24/24 tablet,extended release 24 hr losartan 50 mg tablet See Rx Instructions .Route 12/16/24 .COMPLEX #90 tabs doxycycline hyclate 100 mg capsule 100 mg PO BID 10 days #20 caps 03/27/25 methylprednisolone 4 mg tablets in See Rx Instructions PO .COMPLEX 03/27/25 a dose pack (Medrol (Genaro)) #21 ea ofloxacin 0.3 % ear drops 10 drp otic (ear) BID 14 days #10 03/27/25 mL Allergies Allergy/AdvReac Type Severity Reaction Status Date / Time cyclobenzaprine (From Allergy Unknown unknown Verified 10/24/24 15:23 Flexeril) lisinopril Allergy Unknown unknown Verified 10/24/24 15:23 Pirfenidone Allergy Unknown Uncoded 10/24/24 15:23 Review of Systems General: Reports: 10 or more systems reviewed and unremarkable except in HPI and below Narrative: - Cardiovascular: Reports improvement in heart symptoms with isosorbide mononitrate. Denies knowledge of current blood pressure trends outside of recent clinical measurement. ENMT: Reports: ear or mastoid pain Card: Reports: dyspnea on exertion; Denies: chest pain, palpitations, irregular heart rhythm, swelling of feet/ankles, lightheadedness, syncope or pre-syncope Resp: Reports: dyspnea and productive cough; Denies: non-productive cough GI: Denies: hematochezia : Denies: flank pain or difficulty urinating Musc: Denies: neck pain, back pain or extremity pain Skin/Breast: Denies: rash or pruritus Neuro: Denies: headache(s) or numbness in extremities Psych: Denies: anxiety or depression Les/Lymph: Denies: easy bleeding PFS ED PFSH: Medical History (Updated 03/27/25 @ 00:22 by TYLER Levy) Ischemic cardiomyopathy Atherosclerotic heart disease of [place] coronary artery without angina pectoris CAD (coronary artery disease) COPD (chronic obstructive pulmonary disease) Hypertension Hyperlipidemia Osteoarthritis Prostatitis Depression Anxiety PTSD (post-traumatic stress disorder) Spinal stenosis Lumbar radiculopathy Peripheral neuropathy Surgical History (Updated 10/25/24 @ 00:00 by MILAGROS Garcia) H/O excision of mass (06/08/20) Left hand Status post colonoscopy (06/08/20) History of fusion of cervical spine Hx of circumcision Hx of arthroscopic knee surgery Family History Mother CAD (coronary artery disease) Cancer Diabetes Stroke Father Cancer Brother Cancer Chronic kidney disease (CKD) Diabetes Son Diabetes Family/Other Diabetes Other Hypertension Denies family history of Clotting disorder Dementia Suicide Anesthesia complication Bleeding disorder Lung disease Social History Smoking and tobacco/nicotine status: former use of tobacco/nicotine Quit status (tobacco/nicotine): has quit using Year quit tobacco: 1989 - 1.5 PPD x 40 Years Second hand smoke exposure: Yes Alcohol intake: never Substance/Drug Use: never Lives independently: Yes Household members: spouse Marital status: service: Yes Current occupational status: disabled Do you think of yourself as: Straight/Heterosexual Current gender identity: Male Physical Exam Const: COMMON NORMALS: patient oriented x3 GENERAL APPEARANCE: cooperative and ill appearing; not frail appearing HENMT: COMMON NORMALS: normocephalic, atraumatic, external ears normal, Normal external nose present and oropharynx normal HEAD & SCALP: normocephalic and atraumatic FACE & SINUS: normal facial exam and face symmetric NOSE: Normal external nose present EXTERNAL EAR: Yes external ears normal EXTERNAL AUDITORY CANAL: Abnormal EAC present EAC laterality: left Details: erythema Eye: COMMON NORMALS: Equal, round and reactive pupils present and EOMs intact bilaterally PUPIL: Yes Equal, round and reactive pupils present Neck/C-Spine: GENERAL: Yes trachea midline Chest: CHEST: Yes Symmetrical chest wall rise Resp: COMMON NORMALS: normal respiratory effort, No retractions and No use of accessory muscles EFFORT & INSPECTION: Yes able to speak in complete sentences, Yes symmetric chest movement, No tachypneic, No respiratory distress and No labored AUSCULTATION: rales bilateral (posterior) Cardio: COMMON NORMALS: regular rate and regular rhythm RATE: regular rate RHYTHM: regular rhythm GI: COMMON NORMALS: Normal to inspection, nondistended, normoactive bowel sounds present : COMMON NORMALS: Yes no CVA tenderness BLADDER/KIDNEY EXAM: Yes no CVA tenderness Back/Pelvis: COMMON NORMALS: no CVA tenderness Extremity: COMMON NORMALS: normal to inspection, full ROM and capillary refill normal Neuro: COMMON NORMALS: patient oriented x3 and CN's II-XII intact bilaterally SENSORY EXAM: Yes extremities (intact) Psych: COMMON NORMALS: speech normal SPEECH: Yes normal speech Skin: COMMON NORMALS: no rashes or lesions noted GENERAL SKIN EXAM: no rashes or lesions noted Course Vital Signs: Vital signs: Vital Signs Temperature 97.5 F L 03/26/25 21:09 Pulse Rate 91 03/27/25 00:28 Respiratory Rate 16 03/27/25 00:28 Blood Pressure 100/54 03/27/25 00:28 Pulse Oximetry 98 03/27/25 00:28 Oxygen Delivery Me thod Nasal Cannula 03/26/25 22:21 Oxygen Flow Rate 2 03/26/25 22:21 MDM - SOB/Dyspnea Medical Decision Making Patient is a 79 yom with h/o o2 dependent copd, presented to ed with 2 days of increaing dyspnea, green sputum, wihtout fever. w/up consitant with copd exacreabation. Lactic acidosis is unfounded. Patient does not have sepsis. Lactic acid is isolated and elevated. He has some mild hypovolemia, however given his chronic heart failure, will not replace his fluids at this time as to avoid fluid overload Medical Records I reviewed the patient's medical records. Lab Data I reviewed the patient's lab results. 03/26/25 22:05 03/26/25 22:05 Labs/Radiology: Radiology Impressions Chest X-Ray 03/26/25 21:33 IMPRESSION: Redemonstrated chronic fibrotic changes of the lungs. Increased left lung base opacity concerning for superimposed pneumonia. Laboratory Results WBC 12.22 10^3/uL (3.29-11.43) H 03/26/25 22:05 RBC 4.71 10^6/uL (3.85-5.65) 03/26/25 22:05 Hgb 11.00 g/dL (11.27-16.99) L 03/26/25 22:05 Hct 36.4 % (37-53) L 03/26/25 22:05 MCV 77.3 fl (82-101) L 03/26/25 22:05 MCH 23.4 pg (27-33) L 03/26/25 22:05 MCHC 30.2 g/dL (30-55) 03/26/25 22:05 RDW 16.2 % (12.1-15.1) H 03/26/25 22:05 Plt Count 262 10^3/cmm (157-399) 03/26/25 22:05 MPV 9.5 fL (7.4-10.4) 03/26/25 22:05 Neut % (Auto) 84.9 % 03/26/25 22:05 Lymph % (Auto) 4.3 % 03/26/25 22:05 [place] % (Auto) 9.6 % 03/26/25 22:05 Eos % (Auto) 0.2 % 03/26/25 22:05 Baso % (Auto) 0.5 % 03/26/25 22:05 Neut # (Auto) 10.39 10^3/uL (1.8-7.7) H 03/26/25 22:05 Lymph # (Auto) 0.5 10^3/uL (0.8-4.8) L 03/26/25 22:05 [place] # (Auto) 1.2 10^3/uL (0.2-0.9) H 03/26/25 22:05 Eos # (Auto) 0.0 10^3/uL (0.0-0.8) 03/26/25 22:05 Baso # (Auto) 0.1 10^3/uL (0.0-0.1) 03/26/25 22:05 Nucleated RBC % (auto) 0 % 03/26/25 22:05 Nucleated RBCs # 0.0 /100WBC 03/26/25 22:05 Sodium 139 mmol/L (136-145) 03/26/25 22:05 Potassium 4.1 mmol/L (3.5-5.1) 03/26/25 22:05 Chloride 106 mmol/L (98-107) 03/26/25 22:05 Carbon Dioxide 19 mmol/L (22-29) L 03/26/25 22:05 Anion Gap 18.1 (5-19) 03/26/25 22:05 BUN 18 mg/dL (8-23) 03/26/25 22:05 Creatinine 1.0 mg/dL (0.7-1.2) 03/26/25 22:05 GFR Calculation Not Reportable 03/26/25 22:05 Glucose 276 mg/dL (65-115) H 03/26/25 22:05 Calculated Osmolality 300 mOsm/kg (285-295) H 03/26/25 22:05 Lactic Acid 2.5 mmol/L (0.5-2.2) H 03/26/25 22:05 Calcium 8.2 mg/dL (8.5-10.5) L 03/26/25 22:05 Total Bilirubin 0.2 mg/dL (0.15-1.2) 03/26/25 22:05 AST 9 U/L (0-40) 03/26/25 22:05 ALT 13 U/L (0-41) 03/26/25 22:05 Alkaline Phosphatase 108 U/L (40-130) 03/26/25 22:05 Troponin T Baseline < 6 ng/L (0-15) 03/26/25 22:05 Troponin T 120 Minute < 6.0 ng/L (0-15) 03/26/25 23:44 Delta Troponin T 0 ABS# (0-10) 03/26/25 23:44 NT-Pro-B Natriuret Pep 444 pg/mL (0-450) 03/26/25 22:05 Total Protein 6.1 g/dL (6.6-8.7) L 03/26/25 22:05 Albumin 3.2 g/dL (3.5-5.2) L 03/26/25 22:05 Globulin 2.9 g/dL (1.3-4.6) 03/26/25 22:05 Procalcitonin 0.05 ng/mL (0-0.5) 03/26/25 22:05 Urine Color Yellow (Yellow) 03/26/25 22:41 Urine Appearance Clear (CLEAR) 03/26/25 22:41 Urine pH 5.0 (5-7) 03/26/25 22:41 Ur Specific [place] 1.038 (1.005-1.030) H 03/26/25 22:41 Urine Protein Trace (Negative) A 03/26/25 22:41 Urine Glucose (UA) 3+ (Normal) H 03/26/25 22:41 Urine Ketones Trace (Negative) 03/26/25 22:41 Urine Blood Negative (Negative) 03/26/25 22:41 Urine Nitrate Negative (Negative) 03/26/25 22:41 Urine Bilirubin Negative (Negative) 03/26/25 22: Urine Urobilinogen 1.0 mg/dL (Negative) 03/26/25 22:41 Ur Leukocyte Esterase Negative (Negative) 03/26/25 22:41 Urine RBC 0-2 /hpf (0-2) 03/26/25 22:41 Urine WBC 0-5 /hpf (0-5) 03/26/25 22:41 Ur Squamous Epith Cells 0-5 /hpf (0-5) 03/26/25 22:41 Amorphous Sediment Not Reportable 03/26/25 22:41 Urine Bacteria None seen /hpf (NONE) 03/26/25 22:41 Hyaline Casts 2.87 /lpf 03/26/25 22:41 All radiology interpretation(s) finalized by discharge EKG Data EKG 1: Interpretation: LVH Early repolarization, no ST segment elevation EKG 2: Interpretation: LVH, early repolarization Discharge Plan Discharge Patient Disposition: Home Clinical Impression: Asthma exacerbation in COPD Otitis externa, left Qualifiers: Otitis externa type: other infective Chronicity: acute Qualified Code(s): H60.392 - Other infective otitis externa, left ear Condition: Stable Prescriptions: New ofloxacin 0.3 % drops 10 drp otic (ear) BID 14 Days Qty: 10 0RF doxycycline hyclate 100 mg capsule 100 mg PO BID 10 Days Qty: 20 0RF methylprednisolone [Medrol (Genaro)] 4 mg tablets,dose pack See Rx Instructions PO .COMPLEX Qty: 21 0RF Rx Instructions: for 6 days No Action finasteride 5 mg tablet 5 mg PO DAILY metoprolol tartrate 50 mg tablet 25 mg PO BID pantoprazole 40 mg tablet,delayed release (DR/EC) 40 mg PO QAM aspirin [Adult Low Dose Aspirin] 81 mg tablet,delayed release (DR/EC) 81 mg PO DAILY (DME) VI MARQUEZ See Rx Instructions .ROUTE .MEDSUPPLY Qty: 1 0RF Rx Instructions: As directed bupropion HCl 150 mg tablet sustained-release 12 hr 150 mg PO QAM gabapentin 100 mg capsule See Rx Instructions .ROUTE .COMPLEX Rx Instructions: Take 1 capsule by mouth in the morning, 1 capsule in the afternoon, and 2 capsules at bedtime. clopidogrel 75 mg tablet 75 mg PO DAILY nitroglycerin 0.4 mg tablet, sublingual 0.4 mg sublingual Q5M PRN (Reason: Chest Pain) Rx Instructions: do not exceed 3 doses per episode isosorbide mononitrate 30 mg tablet extended release 24 hr 30 mg PO DAILY Qty: 90 3RF atorvastatin [Lipitor] 40 mg tablet 40 mg PO DAILY Qty: 90 3RF albuterol sulfate 2.5 mg /3 mL (0.083 %) solution for nebulization 2.5 mg inhalation Q6H Qty: 1500 0RF ferrous sulfate 325 mg (65 mg iron) tablet 325 mg PO TID fluticasone propionate [Allergy Relief (fluticasone)] 50 mcg/actuation spray,suspension 1 spray intranasal DAILY Rx Instructions: administer into each nostril Breztri Aerosphere 160-9-4.8 mcg/actuation HFA aerosol inhaler 2 inh inhalation BID Qty: 10.7 6RF losartan 50 mg tablet See Rx Instructions .ROUTE .COMPLEX Qty: 90 3RF Dose Instruction: TAKE ONE TABLET BY MOUTH ONCE A DAY Rx Instructions: TAKE ONE TABLET BY MOUTH ONCE A DAY ketoconazole 2 % Shampoo See Rx Instructions .ROUTE .COMPLEX Rx Instructions: 1 applic topically 2 times per week as directed. Leave on for 15 minutes then rinse thoroughly. Alternae using selsun blue shampoo. cetirizine 10 mg Tablet 10 mg PO DAILY quetiapine 100 mg Tablet 50 mg PO BEDTIME benzonatate 100 mg Capsule 100 mg PO BID PRN (Reason: Cough) B complex-vitamin C-folic acid 0.8 mg Tablet 1 tab PO DAILY albuterol sulfate 90 mcg/actuation Hfa Aerosol Inhaler 2 puff INHALATION QID PRN (Reason: Shortness Of Breath) prazosin 2 mg Capsule 2 mg PO QPM Artificial Tears (PF) Dropperette 1 drp ophthalmic (eye) Q4H PRN (Reason: Dry Eyes) cholecalciferol (vitamin D3) [Vitamin D3] 50 mcg (2,000 unit) Tablet 100 mcg PO DAILY PreserVision AREDS 2 Plus MV 200 mcg-15 mcg- 5 mg-1 mg Capsule 1 cap PO BID guaifenesin [Wal-Tussin] 100 mg/5 mL liquid 200 mg PO TID ipratropium-albuterol 0.5 mg-3 mg(2.5 mg base)/3 mL solution for nebulization 3 ml inhalation Q6H PRN (Reason: shortness of breath or wheezing) Qty: 180 0RF Discharge Orders: Discharge ED (Routine); Ordered 03/27/25 Ordered By: Karin Hernandez Referrals: Gypsy Salcedo MD [Primary Care Provider, Family Practice] Discharge Diet: Usual diet and Low Salt Discharge Activity: Resume usual activity Patient Instructions: Patient Portal & Nomi Instructions Activity Restrictions/Additional Instructions: Return to ED with worsening shortness of breath, worsening cough, difficulty catching her breath, fever greater 100.4 ?F Is important call your doctor tomorrow to follow-up on this visit. Print Language: Chadian Coding Level of Care Code ED Boiling Tub Operator for Rhina Card
[2025-03-26 21:51] VITALS: BP 91/71; PULSE 90; RESP 27; O2SAT 95
[2025-03-26 22:12] LABS: Hematocrit 36.4 % (37-53); Hemoglobin 11.00 g/dL (11.27-16.99); Mean Corpuscular HGB Conc 30.2 g/dL (30-55); Mean Corpuscular Hemoglobin 23.4 pg (27-33); Mean Corpuscular Volume 77.3 fl (82-101); Nucleated Red Blood Cells % 0 %; Platelet Count 262 10^3/cmm (157-399); Red Blood Count 4.71 10^6/uL (3.85-5.65); White Blood Count 12.22 10^3/uL (3.29-11.43)
[2025-03-26 22:21] VITALS: BP 97/66; PULSE 86; RESP 27; O2SAT 96
[2025-03-26 22:28] LABS: Troponin(5th) Baseline < 6 ng/L (0-15)
[2025-03-26 22:30] VITALS: BP 97/66; PULSE 87; RESP 24; O2SAT 96
[2025-03-26 22:44] LABS: Alanine Aminotransferase 13 U/L (0-41); Albumin Level 3.2 g/dL (3.5-5.2); Alkaline Phosphatase 108 U/L (40-130); Anion Gap 18.1 (5-19); Aspartate Amino Transferase 9 U/L (0-40); Blood Urea Nitrogen 18 mg/dL (8-23); Calcium 8.2 mg/dL (8.5-10.5); Carbon Dioxide 19 mmol/L (22-29); Chloride 106 mmol/L (98-107); Creatinine Clr Calc Pharmacy 70.8057; Globulin 2.9 g/dL (1.3-4.6); Glucose 276 mg/dL (65-115); NT Pro B Type Natriuretic Pept 444 pg/mL (0-450); Osmolality Calculated 300 mOsm/kg (285-295); Potassium 4.1 mmol/L (3.5-5.1); Sodium 139 mmol/L (136-145); Total Protein 6.1 g/dL (6.6-8.7)
--- NOTE | 2025-03-26 22:48 | ECG_ITS ---
Motility Count Test Date: 2025-03-26 Pat Name: Krishna Hess Department: Room: Gender: Male Tripoler: : 1945 Requested By: Karin Hernandez Order Number: [id number] Courtney MD: Abbe Kathleen M.D. Measurements Intervals [place] Rate: 86 P: 29 NC: 188 QRS: 2 QRSD: 91 T: 44 QT: 376 QTc: 451 Interpretive Statements SINUS RHYTHM WITH OCCASIONAL SUPRAVENTRICULAR PREMATURE COMPLEXES DIFFUSE ST ELEVATION NOTED Compared to ECG 09/08/2024 01:38:12 Left ventricular hypertrophy no longer present Electronically Signed On 03-27-2025 10:22:57 CDT by Abbe Kathleen M.D. [email or web address]
[2025-03-26 22:56] LABS: Glucose Urine UA 3+ (Normal); Nitrate Urine Negative (Negative)
[2025-03-26 22:58] LABS: Add Urine Microscopic? YES
[2025-03-26 23:00] VITALS: BP 82/58; PULSE 88; RESP 36; O2SAT 98
[2025-03-26 23:08] LABS: Specific Gravity, Urine 1.038 (1.005-1.030)
[2025-03-26 23:09] LABS: UA Slide Review UA Slide Review Perf
[2025-03-26 23:16] LABS: Procalcitonin 0.05 ng/mL (0-0.5)
[2025-03-26 23:30] VITALS: BP 85/54; PULSE 105; RESP 24; O2SAT 98
--- NOTE | 2025-03-26 23:34 | ECG_ITS ---
[facility] Date: 2025-03-26 Pat Name: Krishna Hess Department: Room: Gender: Male Supply Cataloguer: : 1945 Requested By: Karin Hernandez Order Number: [id number] Courtney MD: Abbe Kathleen M.D. Measurements Intervals [place] Rate: 88 P: 10 ID: 180 QRS: -6 QRSD: 93 T: 25 QT: 375 QTc: 455 Interpretive Statements SINUS RHYTHM MINIMAL VOLTAGE CRITERIA FOR LVH, CONSIDER NORMAL VARIANT [MEETS CRITERIA IN ONE OF: R(aVL), S(V1), R(V5), R(V5/V6)+S(V1)] NONSPECIFIC ST ELEVATION [0.05+ mV ST ELEVATION] Compared to ECG 09/08/2024 01:38:12 ST (T wave) deviation now present Electronically Signed On 03-27-2025 10:28:48 CDT by Abbe Kathleen M.D. [email or web address]
[2025-03-26 23:51] LABS: Lactic Sepsis W/Reflex 2.5 mmol/L (0.5-2.2)
[2025-03-27 00:18] LABS: Troponin 5 2HR < 6.0 ng/L (0-15); Troponin 5 2HR Delta 0 ABS# (0-10)
[2025-03-27] MEDS: methylPREDNISolone sod succ 125 mg/2 mL INJ 80 MG IVP (00:20)
[2025-03-27 00:28] VITALS: BP 100/54; PULSE 91; RESP 16; O2SAT 98
[2025-03-27 01:19] LABS: Reflex Lactate Order REFLEX LACTIC ORDERD
--- OUTSIDE RECORDS SUMMARY | 2025-03-28 03:13 | XMS_ITS | Encounter Summary ---
Author Organization [employer] [facility] Address [address] [place] [address] Care Team Providers Care Windows Architect Name Role Phone Unavailable Primary Care Provider Unavailabl e Encounter Details Date Type Department Care Team (Latest Contact Info) Description 02/07/2000 Outpatient Historical [facility] Jeremiah Romero Jr., MD [address] [place] [id number] Open wound of knee, leg (except thigh), and ankle, without mention of complication (Primary Dx); Accidental fall on or from other stairs or steps; Place of occurrence, industrial places and premises Social History Tobacco Use Types Packs/Day Years Used Date Smoking Tobacco: Never Assessed Sex and Gender Information Value Date Recorded Sex Assigned at Not on file Legal 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
--- OUTSIDE RECORDS SUMMARY | 2025-03-28 03:13 | XMS_ITS | Encounter Summary ---
Author Organization [employer] [facility] Address [address] [place] [address] Care Team Providers Care Stick Welder Name Role Phone Unavailable Primary Care Provider Unavailabl e Encounter Details Date Type Department Care Team (Latest Contact Info) Description 11/11/1998 Outpatient Historical HIS [facility] [place] Colon, [place] [address] [place] [id number] Osteoarthrosis, unspecified whether generalized or localized, unspecified site (Primary Dx); Spasm of muscle Social History Tobacco Use Types Packs/Day Years Used Date Smoking Tobacco: Never Assessed Sex and Gender Information Value Date Recorded Sex Assigned at Not on file Legal Sex Male 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
--- OUTSIDE RECORDS SUMMARY | 2025-03-28 03:13 | XMS_ITS | Encounter Summary ---
Author Organization [employer] [facility] Address [address] [place] [address] Care Team Providers Care Production Scheduler Name Role Phone Unavailable Primary Care Provider Unavailabl e Encounter Details Date Type Department Care Team (Latest Contact Info) Description 12/10/2001 Outpatient Historical HIS [facility] [place] Colon[place] [address] [place] [phone] ABN FIND-STOOL CONTENTS-OCC BLOOD (Primary Dx); HYPERTENSION NOS; Hypertrophy of prostate Social History Tobacco Use Types Packs/Day Years Used Date Smoking Tobacco: Never Assessed Sex and Gender Information Value Date Recorded Sex Assigned at Not on file Legal Sex Male 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
--- OUTSIDE RECORDS SUMMARY | 2025-03-28 03:13 | XMS_ITS | Encounter Summary ---
Author Organization [employer] [facility] Address [address] [place] [address] Care Team Providers Care Cutter Aluminum Sheet Name Role Phone Unavailable Primary Care Provider Unavailabl e Encounter Details Date Type Department Care Team (Latest Contact Info) Description 12/26/2001 Outpatient Historical HIS [facility] Jenni, Finn Watson MD [address] [facility] [address] [place] [address] Rectal/anal hemorrhage (Primary Dx); FAMILY HX-GI DISORDERS Social History Tobacco Use Types Packs/Day Years Used Date Smoking Tobacco: Never Assessed Sex and Gender Information Value Date Recorded Sex Assigned at Not on file 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
--- OUTSIDE RECORDS SUMMARY | 2025-03-28 03:13 | XMS_ITS | Clinical Summary ---
Author Organization [facility] Address [address] [place] [address] Phone Care Team Providers Care Textile Science Technician Name Role Phone Unavailable Primary Care Provider Unavailabl e Allergies Active Allergy Reactions Criticality Noted Date Comments Cyclobenzaprine Arrhythmia High 12/18/2009 Medications finasteride (PROSCAR) 5 mg Oral tablet Take 5 mg by mouth daily. Caution: When administering finasteride, women should not handle crushed or bro Active citalopram (CELEXA) 40 mg Oral tablet Take 40 mg by mouth daily. Active zolpidem (AMBIEN) 10 mg Oral tablet Take 10 mg by mouth nightly as needed. Active BUPROPION HCL (BUPROBAN ORAL) Take by mouth. Activ e ALPRAZOLAM ORAL Take by mouth. Activ e SIMVASTATIN ORAL Take by mouth. Activ e LISINOPRIL ORAL Take by mouth. Activ e METHADONE HCL (METHADOSE ORAL) Take by mouth. Activ e OXYCODONE HCL (OXYCODONE ORAL) Take by mouth. 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
--- OUTSIDE RECORDS SUMMARY | 2025-03-28 03:13 | XMS_ITS | Encounter Summary ---
Author Organization [facility] Address [address] [place] [address] Care Team Providers Care Non Destructive Testing Specialist Name Role Phone Unavailable Primary Care Provider Unavailabl e Encounter Details Date Type Department Care Team (Latest Contact Info) Description 02/16/2000 Outpatient Historical [facility] Nick Colon, Jeremiah Fregoso MD [address] [place] [address] Open wound(s) (multiple) of unspecified site(s), without mention of complication (Primary Dx) Social History Tobacco Use Types Packs/Day Years Used Date Smoking Tobacco: Never Assessed Sex and Gender Information Value Date Recorded Sex Assigned at Not on file 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
--- OUTSIDE RECORDS SUMMARY | 2025-03-28 03:13 | XMS_ITS | Encounter Summary ---
Author Organization [facility] Address [address] [place] [address] Care Team Providers Care Label Designer Name Role Phone Unavailable Primary Care Provider Unavailabl e Encounter Details Date Type Department Care Team (Latest Contact Info) Description 04/18/2000 Outpatient Historical [facility] KenyamarcellusWilmer NO ADDRESS ON FILE Prepatellar bursitis (Primary Dx); Other joint derangement, not elsewhere classified, lower leg; Accidental fall on or from other stairs or steps; Place of occurrence, industrial places and premises Social History Tobacco Use Types Packs/Day Years Used Date Smoking Tobacco: Never Assessed Sex and Gender Information Value Date Recorded Sex Assigned at Not on file 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
--- OUTSIDE RECORDS SUMMARY | 2025-03-28 03:13 | XMS_ITS | Patient Health Record ---
Author Organization [facility] Address [address] [place] [address] Care Team Providers Care Button Pusher Name Role Phone Gypsy Arce MD Primary Care Provider Tato Velez Unavailable [phone] Allergies Allergen (clinical drug ingredient) Drug/Non Drug Allergy documented on EMR Reaction Allergy Type Onset Date Status Flexeril Reaction 1:Rash Drug Allergy 11/03/2021 active lisinopril Lisinopril Reaction 1:Rash Drug Allergy 11/03/2021 active cyclobenzaprine Cyclobenzaprine Unknown Drug Allergy Active Results Component Value Reference Range Notes XR Outside CD Reviewed date:09/23/2024 12:44:24 PM Interpretation: Performing Lab: Notes/Report: [id number]=[facility] zzzCT Outside CD Reviewed date:09/23/2024 12:44:24 PM Interpretation: Performing Lab: Notes/Report: [id number]&org=[facility] XR Outside CD Reviewed date:09/23/2024 12:44:24 PM Interpretation: Performing Lab: Notes/Report: [id number]=iSite Reason For Referral Reason Pulmonary Fibrosis: [facility] -Scheduled 09/11-One month per Kunal Scheduled 10/02/2024 @ 2:10 PM Diagnosis 1 Pulmonary fibrosis, unspecified (J84.10) Referring Provider First Name Sara robledo Referring Provider Last Name MS [facility]erring Provider [facility] Referred Organization [facility] Referred Provider Tato Syed Referred Address [address] [place],[address], Referred Provider Specialty Pulmonary Di seases General Notes Nieves Garcia 09/12 09:21:49 AM >Scheduled 10/02/2024 @ 2:10 PM Referral Priority Routine Medications Medication SIG (Take, Route, Frequency, Duration) Notes Start Date End Date Status guaiFENesin 100 MG/5ML Syrup 10 mL as needed Orally every 4 hrs Active Albuterol Sulfate (2.5 MG/3ML) 0.083% Nebulization Solution 3 mL as needed Inhalation every 6 hrs Active Breztri Aerosphere 160-9-4.8 MCG/ACT Aerosol 2 puffs Inhalation Twice a day Active Metoprolol Tartrate 50 MG Oral Tablet ORAL *Reorder from [employer] for eRx and Interaction Alerts* 02/14/2022 Active buPROPion HCl 75 MG Tablet 2 tablets Orally Twice a day Active Prazosin 1 MG Oral Capsule ORAL *Reorder from [employer] for eRx and Interaction Alerts* 11/03/2021 Active Albuterol Sulfate 108 (90 Base) MCG/ACT Aerosol Powder Breath Activated 1 puff as needed Inhalation every 4 hrs Active Losartan Potassium 50 MG Oral Tablet ORAL *Reorder from [employer] for eRx and Interaction Alerts* 11/03/2021 Active Benzonatate 100 MG Capsule 1 capsule as needed Orally Three times a day Active Gabapentin 100 MG Oral Capsule ORAL *Reorder from [employer] for eRx and Interaction Alerts* 02/14/2022 Active Pantoprazole Sodium 40 MG Tablet Delayed Release Oral 11/03/2021 Active Cholecalciferol 50 MCG (2000 UT) Capsule 1 capsule Orally Once a day Active Finasteride 5 MG Tablet Oral 11/03/2021 Active Cetirizine HCl 10 MG Tablet 1 tablet Orally Once a day Active quetiapine 100 MG Oral Tablet ORAL *Reorder from [employer] for eRx and Interaction Alerts* 11/03/2021 Active Fluticasone Propionate 50 MCG/ACT Suspension 1 spray in each nostril Nasally Twice a day Active Aspirin 81 81 MG Tablet Chewable Oral 11/03/2021 Active Pirfenidone 267 MG Oral Capsule ORAL *Reorder from [employer] for eRx and Interaction Alerts* 06/14/2022 Not-Taking Clopidogrel Bisulfate 75 MG Tablet Oral 06/14/2022 Active Isosorbide Mononitrate ER 30 MG Tablet Extended Release 24 Hour TAKE ONE TABLET BY MOUTH DAILY Oral; Duration: 14 Days Active olodaterol 0.0025 MG/ACTUAT Inhalation [place] [facility] *Reorder from [employer] for eRx and Interaction Alerts* 02/14/2022 Not-Taking Social History Tobacco Use: Social History Observation Description Date Details (start date - stop date) Former Smoker NA - NA Social History Tobacco Use: Social Info Question Answer Notes Tobacco Control (Standard) Tobacco use: Former smoker How long has it been since you last smoked? Greater than 10 years Additional Details Category Social Info Options Details Migrated Social History Migrated Social History History of tobacco use : , Smoking Status : Former tobacco user , Smoking Status : Never used tobacco Problems Problem Type SNOMED Code ICD Code Onset Dates Problem Status W/U Status Risk Notes Problem Pulmonary fibrosis (98756652) Pulmonary fibrosis, unspecified (J84.10) Active confirmed Problem Radiology result abnormal (540323886) Abnormal chest CT (R93.89) Active confirmed Problem Chronic respiratory failure (55526054) Chronic hypoxic respiratory failure (J96.11) Active confirmed Vital Signs Heart Rate 91 /min 10/02/2024 Temperature 97.2 degrees Fahrenheit 10/02/2024 Respiratory Rate 20 /min 10/02/2024 Height-cm 172.72 cm 10/02/2024 Oximetry 92 % 10/02/2024 Blood pressure diastolic 68 mm Hg 10/02/2024 Weight-kg 102.5 kg 10/02/2024 Height 68.00 in 10/02/2024 Blood pressure systolic 132 mm Hg 10/02/2024 Weight 225.97 lbs 10/02/2024 BMI 34.35 kg/m2 10/02/2024 Encounters Encounter Location Date Provider Diagnosis [facility] [address] [place] [address] 10/02/2024 Tato Syed Shortness of breath R06.02 ; Former smoker Z87.891 ; Abnormal chest CT R93.89 and Chronic hypoxic respiratory failure J96.11 [facility] [address] [place] [address] 12/23/2024 Tato Syed [facility] [address] [place] [address] [place], [place] [address] 09/19/2024 Tato Syed Assessments Encounter Date Diagnosis (ICD Code) Assessment Notes Treatment Notes Treatment Clinical Notes Section Notes 10/02/2024 Shortness of breath (ICD-10 - R06.02) Patient states he had an echocardiogram showing he had an EF of 30%. I am suspicous most of his shortness of breath is due to his cardiac issue. He is not sure if he is benefitting from Breztri or his Albuterol Neb. Obtain PFT results from [place], [place]. 10/02/2024 Former smoker (ICD-10 - Z87.891) Patient smoked two [id number] for 30 years. He has been abstinent since 2004. 10/02/[address] (ICD-10 - R93.89) Obtain high-resolution chest CT. 10/02/2024 Chronic hypoxic respiratory failure (ICD-10 - J96.11) Continue nasal cannula to maintain a saturation above 89% given history of heart failure. Importance of oxygen compliance emphasized. 10/02/2024 Other I, Ashlie Shirley, am scribing for, and in the presence of Dr. Tato Syed. I, Dr. Tato Syed, personally performed the services described in this documentation, as scribed by Ashlie Shirley in my presence, and it is both accurate and complete. Plan Of Treatment Future Test Test Name Order Date CT Chest High Resolution w/o Contrast di [id number] 12/18/2024 Insurance Providers Payer Name Payer Address Payer Phone Subscriber Number Group Number Insured Name Patient Relationship to Insured Coverage Start Date Coverage End Date [employer] [address] [place] [phone] [id number] WANDER CARDENAS Self - patient is the insured Medical (General) History Medical History History ICD Code measles mumps chicken pox small pox pneumonis back trouble hypertension stroke Surgical History Surgery Date(Month/Year) back ankle Hospitalization History Reason Date(Month/Year) stroke
== END 2025-03-27 01:06 | disposition home or self-care (01) ==
PROVIDERS: Emergency Provider Physician Assistant; PCP Family Medicine
DX: H60.392 Other infective otitis externa, left ear (principal); J44.1 Chronic obstructive pulmonary disease with (acute) exacerbation; Z79.82 Long term (current) use of aspirin; Z79.02 Long term (current) use of antithrombotics/antiplatelets; Z87.891 Personal history of nicotine dependence; E78.5 Hyperlipidemia, unspecified; I10 Essential (primary) hypertension; I25.10 Atherosclerotic heart disease of native coronary artery without angina pectoris
CPT/HCPCS: 36415; 71045; 80053; 81001; 83605; 83880; 84145; 84484; 85025; 87040; 93005; 96374; 99285; J2919; J9999

== ENCOUNTER → 2025-05-15 14:23 | Outpatient (BNVA) | payer OTHER, SELFPAY | PROVIDERS: PCP Family Medicine; Visit Provider Internal Medicine Cardiovascular Disease | DX: I25.10 Atherosclerotic heart disease of native coronary artery without angina pectoris (principal); I73.9 Peripheral vascular disease, unspecified; I10 Essential (primary) hypertension; E78.5 Hyperlipidemia, unspecified; Z87.891 Personal history of nicotine dependence | CPT/HCPCS: 99214 ==